=== PATIENT | male | born 1955 | race Caucasian/White ===

== ENCOUNTER 2020-09-08 06:09 | Outpatient (REF) | payer BC, SELFPAY ==
[2020-09-08 12:01] LABS: Alanine Aminotransferase 15 U/L (0-40); Alkaline Phosphatase 59 U/L (39-117); Anion Gap 12 (12-20); Aspartate Amino Transferase 12 U/L (5-37); Bilirubin Total 0.7 mg/dL (0.0-1.0); Blood Urea Nitrogen 13 mg/dL (9-16); Calcium 8.8 mg/dL (8.4-10.2); Carbon Dioxide 26 mmol/L (22-29); Chloride 103 mmol/L (96-108); Cholesterol 168 mg/dL; Estimated Glomerular Filt Rate > 60; Glucose Fasting 97 mg/dL (60-99); HDL Cholesterol 41 mg/dL; LDL Cholesterol Calculated 106 mg/dl; Potassium 4.1 mmol/l (3.3-5.1); Sodium 137 mmol/L (135-145); Total Protein 6.3 g/dL (6.5-8.0); Triglycerides 105 mg/dL
[2020-09-08 12:12] LABS: TSH reflex Free T4 3.28 mIU/mL (0.32-4.0)
== END 2020-09-08 06:10 | disposition home or self-care (01) ==
LOC: HO.HMGCLDS 06:09
PROVIDERS: PCP Nurse Practitioner Family; Visit Provider Nurse Practitioner Family
DX: I48.0 Paroxysmal atrial fibrillation (principal); I10 Essential (primary) hypertension
CPT/HCPCS: 80053; 80061; 84443

== ENCOUNTER → 2020-12-01 09:14 | Outpatient (BNVA) | payer BC, SELFPAY | PROVIDERS: Visit Provider Nurse Practitioner Family | DX: Z76.89 Persons encountering health services in other specified circumstances (principal) ==

== ENCOUNTER → 2021-01-28 09:43 | Outpatient (BNVA) | payer BC, SELFPAY | PROVIDERS: PCP Nurse Practitioner Family; Visit Provider Internal Medicine | DX: I48.0 Paroxysmal atrial fibrillation (principal); I10 Essential (primary) hypertension; G47.33 Obstructive sleep apnea (adult) (pediatric); Z99.89 Dependence on other enabling machines and devices; Z79.899 Other long term (current) drug therapy; Z87.891 Personal history of nicotine dependence | CPT/HCPCS: 93005 ==

== ENCOUNTER → 2021-04-30 11:04 | Outpatient (BNVA) | payer BC, SELFPAY | PROVIDERS: PCP Nurse Practitioner Family; Visit Provider Urology | DX: N40.0 Benign prostatic hyperplasia without lower urinary tract symptoms (principal); R39.15 Urgency of urination; R39.12 Poor urinary stream | CPT/HCPCS: 51798 ==

== ENCOUNTER → 2021-08-03 13:40 | Outpatient (BNVA) | payer BC, SELFPAY | PROVIDERS: PCP Nurse Practitioner Family; Visit Provider Urology | DX: N40.1 Benign prostatic hyperplasia with lower urinary tract symptoms (principal); R33.9 Retention of urine, unspecified; R39.12 Poor urinary stream | CPT/HCPCS: 52000 ==

== ENCOUNTER → 2021-08-05 09:37 | Outpatient (BNVA) | payer BC, SELFPAY | PROVIDERS: PCP Nurse Practitioner Family; Visit Provider Internal Medicine | DX: I48.0 Paroxysmal atrial fibrillation (principal); I10 Essential (primary) hypertension; G47.33 Obstructive sleep apnea (adult) (pediatric); Z99.89 Dependence on other enabling machines and devices | CPT/HCPCS: 93005 ==

== ENCOUNTER 2021-08-09 09:55 | Outpatient (REF) | payer BC, SELFPAY ==
[2021-08-09 12:37] LABS: Anion Gap 11 (12-20); Blood Urea Nitrogen 12 mg/dL (9-16); Calcium 8.5 mg/dL (8.4-10.2); Carbon Dioxide 25 mmol/L (22-29); Chloride 109 mmol/L (96-108); Estimated Glomerular Filt Rate > 60; Glucose Random 74 mg/dL (60-115); Potassium 3.8 mmol/L (3.3-5.1); Sodium 141 mmol/L (135-145)
== END 2021-08-09 09:56 | disposition home or self-care (01) ==
LOC: HO.HMGCLDS 09:55
PROVIDERS: PCP Nurse Practitioner Family; Visit Provider Internal Medicine
DX: I48.0 Paroxysmal atrial fibrillation (principal)
CPT/HCPCS: 36415; 80048

== ENCOUNTER → 2021-09-14 10:38 | Outpatient (BNVA) | payer BC, SELFPAY | PROVIDERS: PCP Nurse Practitioner Family; Visit Provider Urology ==

== ENCOUNTER → 2021-12-03 12:47 | Outpatient (BNVA) | payer BC, SELFPAY | PROVIDERS: PCP Nurse Practitioner Family; Visit Provider Urology ==

== ENCOUNTER → 2021-12-21 12:48 | Outpatient (BNVA) | payer BC, SELFPAY | PROVIDERS: PCP Nurse Practitioner Family; Referring Provider Nurse Practitioner Family; Visit Provider Nurse Practitioner Family ==

== ENCOUNTER 2022-03-24 08:49 | Outpatient (REF) | payer BC, SELFPAY ==
[2022-03-24 09:57] LABS: MANUAL DIFF FLAG NO
[2022-03-24 10:26] LABS: Basophils Percent Auto 0.6 % (0-2); Eosinophils Absolute Auto 0.2 X10*3/uL (0.0-0.4); Eosinophils Percent Auto 3.6 % (0-4); Hematocrit 42.8 % (42.0-52.0); Hemoglobin 14.9 g/dl (14.0-18.0); Imm Gran Abs Auto 0.02 X10*3/uL (0.00-0.03); Imm Gran Pct Auto 0.4 % (0.0-0.4); Lymphocytes Percent Auto 19.7 % (20-40); Mean Corpuscular HGB Conc 34.8 g/dl (31.0-36.0); Mean Corpuscular Hemoglobin 31.6 pg (27.0-33.0); Mean Corpuscular Volume 90.9 fL (80.0-98.0); Mean Platelet Volume 9.3 fL (9.4-12.4); Monocytes Absolute Auto 0.4 X10*3/uL (0.1-1.2); Monocytes Percent Auto 6.6 % (2-11); Neutrophils Absolute Auto 3.6 x10*3/uL (2.0-8.3); Neutrophils Percent Auto 69.1 % (45-73); Platelet Count 203 X10*3/uL (160-400); Red Blood Count 4.71 X10*6/uL (4.60-5.80); Red Cell Distribution Width 12.6 % (11.0-16.0); White Blood Count 5.3 X10*3/uL (4.8-10.8)
[2022-03-24 11:09] LABS: Alanine Aminotransferase 13 U/L (0-40); Alkaline Phosphatase 61 U/L (39-117); Anion Gap 13 (12-20); Aspartate Amino Transferase 11 U/L (5-37); Blood Urea Nitrogen 12 mg/dL (9-16); Calcium 9.2 mg/dL (8.4-10.2); Carbon Dioxide 22 mmol/L (22-29); Chloride 107 mmol/L (96-108); Estimated Glomerular Filt Rate > 60; Glucose Random 89 mg/dL (60-115); Iron 105 mcg/dL (45-160); Percent Iron Saturation 31 % (15-50); Potassium 4.4 mmol/L (3.3-5.1); Sodium 138 mmol/L (135-145); Total Iron Binding Capacity 334 mcg/dL (228-428); Total Protein 6.5 g/dL (6.5-8.0); Unsaturated Iron Binding 229 ug/dL
[2022-03-24 11:14] LABS: Thyroid Stimulating Hormone 3.22 uIU/mL (0.32-4.0); Vitamin D 25-OH Total 26.7 ng/mL (>30)
[2022-03-24 11:25] LABS: Vitamin B12 169 pg/mL (200-900)
== END 2022-03-24 08:50 | disposition home or self-care (01) ==
LOC: HO.LAB 08:49
PROVIDERS: Absent Provider Nurse Practitioner Family; PCP Nurse Practitioner Family; Referring Provider Nurse Practitioner Family; Visit Provider Internal Medicine
DX: I48.0 Paroxysmal atrial fibrillation (principal); I10 Essential (primary) hypertension; R40.0 Somnolence; R53.83 Other fatigue; G47.33 Obstructive sleep apnea (adult) (pediatric); Z79.899 Other long term (current) drug therapy; Z87.891 Personal history of nicotine dependence; Z99.89 Dependence on other enabling machines and devices
CPT/HCPCS: 36415; 80053; 82306; 82607; 83540; 84443; 85025; 93005

== ENCOUNTER → 2022-06-29 12:55 | Outpatient (BNVA) | payer BC, SELFPAY | PROVIDERS: PCP Nurse Practitioner Family; Visit Provider Urology | DX: N40.1 Benign prostatic hyperplasia with lower urinary tract symptoms (principal); R33.9 Retention of urine, unspecified | CPT/HCPCS: 51798 ==

== ENCOUNTER → 2022-09-29 08:58 | Outpatient (BNVA) | payer MEDICARE, BC, SELFPAY | PROVIDERS: PCP Nurse Practitioner Family; Referring Provider Nurse Practitioner Family; Visit Provider Internal Medicine | DX: I48.0 Paroxysmal atrial fibrillation (principal); I10 Essential (primary) hypertension; G47.33 Obstructive sleep apnea (adult) (pediatric); Z99.89 Dependence on other enabling machines and devices; E66.01 Morbid (severe) obesity due to excess calories; Z68.38 Body mass index [BMI] 38.0-38.9, adult | CPT/HCPCS: 93005; 99212 ==

== ENCOUNTER 2022-10-10 06:25 | Outpatient (REF) | payer MEDICARE, BC, SELFPAY ==
[2022-10-10 11:36] LABS: Appearance Urine Turbid; Color Urine Dark Yellow; Glucose Urine UA Negative (Negative); Leukocyte Esterase Urine Trace (Negative); Nitrite Urine Negative (Negative); Specific Gravity - Urine 1.025 (1.005-1.025); UMIC TRIGGER UACC YES; Urine Blood Negative (Negative); Urine Ketones Trace mg/dL (Negative); Urine Protein Negative (Neg-Trace)
[2022-10-10 11:38] LABS: MANUAL DIFF FLAG NO
[2022-10-10 11:43] LABS: Bacteria Urine None Seen (None Seen); Hyaline Casts Urine 0-2 /LPF (0-2); RBC Urine 0-2 /HPF (0-2); Squamous Epithelial Cell Urine 0-2 /HPF (0-2); WBC Urine 0-5 /HPF (0-5)
[2022-10-10 11:47] LABS: Basophils Absolute Auto 0.1 X10*3/uL (0.0-0.2); Eosinophils Absolute Auto 0.2 X10*3/uL (0.0-0.4); Eosinophils Percent Auto 3.1 % (0-4); Hematocrit 44.9 % (42.0-52.0); Hemoglobin 15.1 g/dl (14.0-18.0); Imm Gran Abs Auto 0.03 X10*3/uL (0.00-0.03); Imm Gran Pct Auto 0.6 % (0.0-0.4); Lymphocytes Absolute Auto 0.9 X10*3/uL (1.2-4.9); Lymphocytes Percent Auto 18.1 % (20-40); Mean Corpuscular HGB Conc 33.6 g/dl (31.0-36.0); Mean Corpuscular Hemoglobin 31.2 pg (27.0-33.0); Mean Corpuscular Volume 92.8 fL (80.0-98.0); Mean Platelet Volume 9.6 fL (9.4-12.4); Monocytes Absolute Auto 0.4 X10*3/uL (0.1-1.2); Monocytes Percent Auto 6.9 % (2-11); Neutrophils Absolute Auto 3.6 x10*3/uL (2.0-8.3); Neutrophils Percent Auto 70.3 % (45-73); Platelet Count 189 X10*3/uL (160-400); Red Blood Count 4.84 X10*6/uL (4.60-5.80); Red Cell Distribution Width 12.7 % (11.0-16.0); White Blood Count 5.1 X10*3/uL (4.8-10.8)
[2022-10-10 12:19] LABS: Alanine Aminotransferase 14 U/L (0-40); Albumin Level 4.1 g/dL (3.5-5.0); Alkaline Phosphatase 63 U/L (39-117); Anion Gap 10 (12-20); Aspartate Amino Transferase 11 U/L (5-37); Bilirubin Total 0.9 mg/dL (0.0-1.0); Blood Urea Nitrogen 15 mg/dL (9-16); Calcium 9.1 mg/dL (8.4-10.2); Carbon Dioxide 26 mmol/L (22-29); Chloride 106 mmol/L (96-108); Cholesterol 155 mg/dL; Estimated Glomerular Filt Rate > 60; Glucose Fasting 110 mg/dL (60-99); HDL Cholesterol 39 mg/dL; LDL Cholesterol Calculated 99 mg/dl; Potassium 4.2 mmol/L (3.3-5.1); Sodium 138 mmol/L (135-145); TSH reflex Free T4 3.83 uIU/mL (0.32-4.0); Total Protein 6.5 g/dL (6.5-8.0); Triglycerides 87 mg/dL
[2022-10-10 12:38] LABS: Folate 4.3 ng/mL (> or = 4.0); Vitamin B12 366 pg/mL (200-900)
== END 2022-10-10 06:26 | disposition home or self-care (01) ==
LOC: HO.HMGCLDS 06:25
PROVIDERS: PCP Nurse Practitioner Family; Visit Provider Nurse Practitioner Family
DX: Z00.00 Encounter for general adult medical examination without abnormal findings (principal); Z12.5 Encounter for screening for malignant neoplasm of prostate; E53.8 Deficiency of other specified B group vitamins
CPT/HCPCS: 36415; 80053; 80061; 81001; 82607; 82746; 84153; 84443; 85025

== ENCOUNTER 2022-11-01 12:18 | Outpatient (REF) | payer MEDICARE, BC, SELFPAY ==
[2022-11-07 14:14] LABS: Parietal Cell Antibody <=20.0 Unit (<=20.0)
[2022-11-07 17:49] LABS: Intrinsic Factor Antibodies Positive (Negative)
== END 2022-11-01 12:19 | disposition home or self-care (01) ==
LOC: HO.HMGCLDS 12:18
PROVIDERS: PCP Nurse Practitioner Family; Visit Provider Nurse Practitioner Family
DX: E53.8 Deficiency of other specified B group vitamins (principal)
CPT/HCPCS: 36415; 83516; 86340

== ENCOUNTER → 2022-12-27 09:55 | Outpatient (BNVA) | payer BC, SELFPAY | PROVIDERS: PCP Nurse Practitioner Family; Visit Provider Nurse Practitioner Family | DX: Z13.89 Encounter for screening for other disorder (principal) ==

== ENCOUNTER → 2022-12-29 08:45 | Outpatient (BNVA) | payer MEDICARE, BC, SELFPAY | PROVIDERS: PCP Nurse Practitioner Family; Referring Provider Nurse Practitioner Family; Visit Provider Internal Medicine | DX: R94.31 Abnormal electrocardiogram [ECG] [EKG] (principal); I45.10 Unspecified right bundle-branch block | CPT/HCPCS: 93005 ==

== ENCOUNTER → 2023-01-10 10:38 | Outpatient (BNVA) | payer MEDICARE, BC, SELFPAY | PROVIDERS: PCP Nurse Practitioner Family; Visit Provider Urology | DX: R39.12 Poor urinary stream (principal); R39.15 Urgency of urination | CPT/HCPCS: 51798; 99212 ==

== ENCOUNTER 2023-03-07 08:41 | Emergency (ER) | payer MEDICARE, BC, SELFPAY ==
--- NOTE | ~2023-03-07 | MR_ITS ---
EXAMINATION: MR LUMBAR SPINE WITHOUT CONTRAST CLINICAL INFORMATION: ?cauda equina syndrome, incontinence COMPARISON: None TECHNIQUE: MRI of the lumbar spine was obtained using routine sequences without contrast. FINDINGS: Normal lumbar lordosis is preserved. Trace retrolisthesis of L2 on L3 and L3 on L4. There is a chronic L1 superior endplate compression fracture with associated Schmorl's node and resultant mild height loss and anterior wedging but no associated marrow edema or bony retropulsion. Milder chronic height loss of the L2, L3, and L4 vertebral bodies. Disc desiccation with mild T12-L1 and T11-T12 disc height loss. Mixed type I/II Modic endplate changes posteriorly at L3-L4 and anteriorly at L2-L3 with otherwise mild multilevel anterior type II Modic endplate changes. There are degenerative changes with level by level detail as follows: L1-L2: Mild bilateral facet hypertrophy. No spinal canal or neural foraminal stenosis. L2-L3: Annular disc bulge with bilateral broad-based subarticular disc protrusions and left subarticular/foraminal annular fissure. Mild bilateral facet arthrosis with ligamentum flavum thickening and trace facet joint fluid. No spinal canal stenosis, noting subarticular zone narrowing and mass effect along the traversing right L3 nerve root. Mild bilateral neural foraminal encroachment. L3-L4: Annular disc bulge with left foraminal annular fissure and mild facet arthrosis with ligamentum flavum thickening. No spinal canal stenosis, noting encroachment upon the traversing left greater than right L4 nerve roots in the subarticular zones. Mild bilateral neural foraminal stenosis. L4-L5: Annular disc bulge with moderate facet arthrosis and ligamentum flavum thickening. Small extracanalicular synovial cyst associated with the right facet joint projecting to the right paraspinal soft tissues. No spinal canal stenosis. Minimal bilateral neural foraminal encroachment. L5-S1: Annular disc bulge and moderate right greater than left facet arthrosis. No spinal canal or neural foraminal stenosis. The conus medullaris terminates at the level of T12-L1. The distal spinal cord is normal in appearance. . No epidural fluid collection, hematoma, or mass. Bridging ventral osteophytosis along the left greater than right sacroiliac joints. There is moderate fatty atrophy of the paraspinal musculature. Right renal cyst. The abdominal aorta is of normal contour and caliber. MR/MR lumbar spine wo con IMPRESSION: 1. Chronic L1 superior endplate compression fracture with associated Schmorl's node and resultant mild height loss and anterior wedging. Milder chronic height loss of the L2, L3, and L4 vertebral bodies. 2. Multilevel lumbar spondylosis without evidence of high-grade spinal canal stenosis at any level in the lumbar spine. 3. At L2-L3, a broad-based right subarticular disc protrusion and left subarticular/foraminal annular fissure results in mass effect on the traversing right L3 nerve root. 4. Additional level by level details above.
[2023-03-07 08:47] VITALS: BP 167/93; PULSE 99; RESP 18; TEMP 36.8; O2SAT 97; BMI 39.8
[2023-03-07 09:14] VITALS: BP 143/89; PULSE 79; RESP 11; TEMP 36.4; O2SAT 97
--- NOTE | 2023-03-07 09:31 | ED.BACK ---
HPI - Back Pain/Injury General Chief Complaint: Back Pain/Injury <Brandon Elena MD - Last Filed: 03/07/23 09:35> Stated Complaint: Chronic Back Pain <Brandon Elena MD - Last Filed: 03/07/23 09:35> Time Seen by Provider: 03/07/23 08:54 <Brandon Elena MD - Last Filed: 03/07/23 09:35> Source: patient <Brandon Elena MD - Last Filed: 03/07/23 09:35> Mode of arrival: ambulatory <Brandon Elena MD - Last Filed: 03/07/23 09:35> Limitations: no limitations <Brandon Elena MD - Last Filed: 03/07/23 09:35> History of Present Illness HPI Narrative: This is a 67 years old male presented to the emergency department referred by the PCP because lower back pain and urine incontinence his PCP recommended an MRI to rule out gout equina syndrome therefore he was sent to the ED. Patient denies any fever chills vomiting <Brandon Elena MD - Last Filed: 03/07/23 09:35> MD elicited complaint: back pain <Brandon Elena MD - Last Filed: 03/07/23 09:35> Onset (ago): day(s) (7) <Brandon Elena MD - Last Filed: 03/07/23 09:35> Timing: constant <Brandon Elena MD - Last Filed: 03/07/23 09:35> Severity: moderate <Brandon Elena MD - Last Filed: 03/07/23 09:35> Quality: burning <Brandon Elena MD - Last Filed: 03/07/23 09:35> Location: lumbar spine <Brandon Elena MD - Last Filed: 03/07/23 09:35> Radiation: none <Brandon Elena MD - Last Filed: 03/07/23 09:35> Exacerbating factors: none <Brandon Elena MD - Last Filed: 03/07/23 09:35> Relieving factors: none <Brandon Elena MD - Last Filed: 03/07/23 09:35> Associated symptoms: urinary incontinence <Brandon Elena MD - Last Filed: 03/07/23 09:35> Related Data Home Medications: Home Medications Medication Instructions Recorded Confirmed cyanocobalamin (vitamin B-12) mcg IM 01/10/23 03/07/23 1,000 mcg/mL injection solution Previous Rx's Medication Instructions Recorded amlodipine 2.5 mg tablet 2.5 mg PO DAILY #90 tabs 04/29/22 paroxetine HCl 20 mg tablet 20 mg PO QAM #30 tabs 10/31/22 tamsulosin 0.4 mg capsule 0.4 mg PO DAILY 90 days #90 caps 10/31/22 cyanocobalamin (vitamin B-12) 1,000 mcg IM .COMPLEX #10 ea 11/01/22 1,000 mcg/mL injection kit apixaban 5 mg tablet 5 mg PO BID 90 days #180 tabs 11/28/22 dronedarone 400 mg tablet 400 mg PO BID 90 days #180 tabs 11/28/22 tolterodine 4 mg capsule,extended 4 mg PO DAILY 90 days #90 caps 12/12/22 release 24 hr <Brandon Elena MD - Last Filed: 03/07/23 09:35> Allergies/Adverse Reactions: Allergies Allergy/AdvReac Type Severity Reaction Status Date / Time No Known Allergies Allergy Verified 03/07/23 08:00 [No Known Allergies*] <Brandon Elena MD - Last Filed: 03/07/23 09:35> Review of Systems Constitutional: Constitutional: Reports no additional constitutional complaints <Brandon Elena MD - Last Filed: 03/07/23 09:35> Eyes: Eyes: Reports no additional eye complaints <Brandon Elena MD - Last Filed: 03/07/23 09:35> Cardiovascular: Cardiovascular: Reports no additional cardiovascular complaints <Brandon Elena MD - Last Filed: 03/07/23 09:35> Neurologic: Reports system reviewed and no additional complaints, except as documented <Brandon Elena MD - Last Filed: 03/07/23 09:35> PMFSH Past Medical History Medical History: Medical History Essential hypertension Incomplete emptying of bladder Morbid obesity EVON on CPAP Paroxysmal atrial fibrillation Weak urinary stream <Brandon Elena MD - Last Filed: 03/07/23 09:35> Surgical History: Surgical History History of tonsillectomy <Brandon Elena MD - Last Filed: 03/07/23 09:35> Family History Family History: Family History Father Heart attack Prostate cancer Mother Heart disease Son Substance use disorder Daughter Substance use disorder Sister Mental health disorder <Brandon Elena MD - Last Filed: 03/07/23 09:35> Social History Social History: Social History Housing: House Alcohol intake: former Year quit: 2007 Patient Tobacco Use Status: Former Tobacco user Quit Date: 1983 Smoked: 10 +/- e-Cigarette/Vaping Use: Never Used Second Hand Smoke Exposure: No Advance Directives: No Advance Directives Date on File: 01/22/16 service: Yes Current occupational status: retired Cognitive needs: No Hearing needs: No Vision needs: No <Brandon Elena MD - Last Filed: 03/07/23 09:35> Physical Exam Vital Signs: Vital Signs: Last Vital Signs Temp 98.1 F 03/07/23 16:47 Pulse 81 03/07/23 18:10 Resp 16 03/07/23 18:10 BP 152/98 H 03/07/23 18:10 Pulse Ox 98 03/07/23 18:10 O2 Del Method Room Air 03/07/23 18:10 BMI result Body Mass Index 39.8 <Brandon Elena MD - Last Filed: 03/07/23 09:35> Vital Signs: Last Vital Signs Temp 98.1 F 03/07/23 16:47 Pulse 81 03/07/23 18:10 Resp 16 03/07/23 18:10 BP 152/98 H 03/07/23 18:10 Pulse Ox 98 03/07/23 18:10 O2 Del Method Room Air 03/07/23 18:10 BMI result Body Mass Index 39.8 <Letty Aceves MD - Last Filed: 03/07/23 18:41> Const: General: cooperative <MD El Mayen Last Filed: 03/07/23 09:35> Nutritional Appearance: well nourished <MD El Mayen Last Filed: 03/07/23 09:35> Orientation/consciousness: patient oriented x3 <MD El Mayen Last Filed: 03/07/23 09:35> Limitations: no limitations <MD El Mayen Last Filed: 03/07/23 09:35> HEENT: Head: Yes normal to inspection <MD El Mayen Last Filed: 03/07/23 09:35> General nose exam: Normal external nose present <MD El Mayen Last Filed: 03/07/23 09:35> Face and sinus: Yes normal facial exam <MD El Mayen Last Filed: 03/07/23 09:35> Mouth: Normal oral and palatal mucosa present <MD El Mayen Last Filed: 03/07/23 09:35> Throat: Yes posterior oropharynx normal <MD El Mayen Last Filed: 03/07/23 09:35> Neck: Neck: Yes normal visual inspection and Yes full ROM <MD El Mayen Last Filed: 03/07/23 09:35> Chest: Chest palpation & inspection: normal inspection of the chest <MD El Mayen Last Filed: 03/07/23 09:35> Resp: Effort & Inspection: normal respiratory effort <MD El Mayen Last Filed: 03/07/23 09:35> Auscultation: clear to auscultation bilaterally <MD El Mayen Last Filed: 03/07/23 09:35> Cardio: Jugular venous distension: no JVD <MD lE Mayen Last Filed: 03/07/23 09:35> Rate: regular rate <MD El Mayen Last Filed: 03/07/23 09:35> Rhythm: regular rhythm <MD El Mayen Last Filed: 03/07/23 09:35> GI: Inspection: Yes normal to inspection <MD El Mayen Last Filed: 03/07/23 09:35> Back/Spine/Pelvis: Other: Tenderness in the lower spine, as reflexes in the lower extremity his Babinski is negative his strength in the lower extremities normal sensation is normal <Brandon Elena MD - Last Filed: 03/07/23 09:35> Neuro: General: patient oriented x3 <Brandon Elena MD - Last Filed: 03/07/23 09:35> Medications Administered Discontinued Medications Generic Name Dose Route Start Last Admin Trade Name Freq PRN Reason Stop Dose Admin Diazepam 5 mg 03/07/23 14:02 03/07/23 14:22 Diazepam 2 Mg Tablet PO 03/07/23 14:03 3 mg ONCE ONE Administration <Brandon Elena MD - Last Filed: 03/07/23 09:35> Medications Administered Discontinued Medications Generic Name Dose Route Start Last Admin Trade Name Freq PRN Reason Stop Dose Admin Diazepam 5 mg 03/07/23 14:02 03/07/23 14:22 Diazepam 2 Mg Tablet PO 03/07/23 14:03 3 mg ONCE ONE Administration <Letty Aceves MD - Last Filed: 03/07/23 18:41> Medical Decision Making Medical Decision Making MDM Narrative: Patient was sent by the PCP to rule out cauda equina syndrome will do an MRI <Brandon Elena MD - Last Filed: 03/07/23 09:35> Patient was sent by the PCP to rule out cauda equina syndrome will do an MRI -MRI is negative for cauda equina. Patient has not had any episodes of incontinence or lower extremity weakness in the emergency room. -MRI discussed with the patient, patient being discharged, can follow up with his primary care physician. <Letty Aceves MD - Last Filed: 03/07/23 18:41> Differential Diagnosis Differential Diagnoses: The differential diagnosis associated with the presentation includes (Cauda equina versus compression fractures versus lumbar spondylosis versus spinal stenosis) <Letty Aceves MD - Last Filed: 03/07/23 18:41> Radiology Impression Discussion of test interpretation with radiology: I have reviewed the radiologist's reading. <Letty Aceves MD - Last Filed: 03/07/23 18:41> Radiologist Impression: FINDINGS: Normal lumbar lordosis is preserved. Trace retrolisthesis of L2 on L3 and L3 on L4. There is a chronic L1 superior endplate compression fracture with associated Schmorl's node and resultant mild height loss and anterior wedging but no associated marrow edema or bony retropulsion. Milder chronic height loss of the L2, L3, and L4 vertebral bodies. Disc desiccation with mild T12-L1 and T11-T12 disc height loss. Mixed type I/II Modic endplate changes posteriorly at L3-L4 and anteriorly at L2-L3 with otherwise mild multilevel anterior type II Modic endplate changes. There are degenerative changes with level by level detail as follows: L1-L2: Mild bilateral facet hypertrophy. No spinal canal or neural foraminal stenosis. L2-L3: Annular disc bulge with bilateral broad-based subarticular disc protrusions and left subarticular/foraminal annular fissure. Mild bilateral facet arthrosis with ligamentum flavum thickening and trace facet joint fluid. No spinal canal stenosis, noting subarticular zone narrowing and mass effect along the traversing right L3 nerve root. Mild bilateral neural foraminal encroachment.? ? L3-L4: Annular disc bulge with left foraminal annular fissure and mild facet arthrosis with ligamentum flavum thickening. No spinal canal stenosis, noting encroachment upon the traversing left greater than right L4 nerve roots in the subarticular zones. Mild bilateral neural foraminal stenosis.? L4-L5: Annular disc bulge with moderate facet arthrosis and ligamentum flavum thickening. Small extracanalicular synovial cyst associated with the right facet joint projecting to the right paraspinal soft tissues. No spinal canal stenosis. Minimal bilateral neural foraminal encroachment. L5-S1: Annular disc bulge and moderate right greater than left facet arthrosis. No spinal canal or neural foraminal stenosis. The conus medullaris terminates at the level of T12-L1.? The distal spinal cord is normal in appearance.? . No epidural fluid collection, hematoma, or mass. Bridging ventral osteophytosis along the left greater than right sacroiliac joints. There is moderate fatty atrophy of the paraspinal musculature.? Right renal cyst. The abdominal aorta is of normal contour and caliber. MR/MR lumbar spine wo con IMPRESSION: 1.? Chronic L1 superior endplate compression fracture with associated Schmorl's node and resultant mild height loss and anterior wedging. Milder chronic height loss of the L2, L3, and L4 vertebral bodies. 2.? Multilevel lumbar spondylosis without evidence of high-grade spinal canal stenosis at any level in the lumbar spine. 3.? At L2-L3, a broad-based right subarticular disc protrusion and left subarticular/foraminal annular fissure results in mass effect on the traversing right L3 nerve root. 4.? Additional level by level details above. <Letty Aceves MD - Last Filed: 03/07/23 18:41> Discharge Plan Discharge Clinical Impression: Back pain <Brandon Elena MD - Last Filed: 03/07/23 09:35> Patient Disposition: Home, Self-Care <Brandon Elena MD - Last Filed: 03/07/23 09:35> Instructions: Back Pain (ED) <Brandon Elena MD - Last Filed: 03/07/23 09:35> Prescriptions: No Action amlodipine 2.5 mg tablet 2.5 mg PO DAILY Qty: 90 3RF tamsulosin 0.4 mg capsule 0.4 mg PO DAILY 90 Days Qty: 90 1RF paroxetine HCl 20 mg tablet 20 mg PO QAM Qty: 30 3RF cyanocobalamin (vitamin B-12) 1,000 mcg/mL kit 1,000 mcg IM .COMPLEX Qty: 10 0RF Rx Instructions: once a month; apixaban 5 mg tablet 5 mg PO BID 90 Days Qty: 180 3RF dronedarone 400 mg tablet 400 mg PO BID 90 Days Qty: 180 3RF tolterodine 4 mg capsule,extended release 24hr 4 mg PO DAILY 90 Days Qty: 90 1RF cyanocobalamin (vitamin B-12) 1,000 mcg/mL solution IM <Brandon Elena MD - Last Filed: 03/07/23 09:35> Referrals: Kristian García, MANAGER [employer] [Primary Care Provider] - 2 days <Brandon Elena MD - Last Filed: 03/07/23 09:35>
[2023-03-07 11:32] VITALS: BP 141/94; PULSE 76; RESP 20; O2SAT 97
[2023-03-07 13:52] VITALS: BP 161/111; PULSE 81; RESP 16; O2SAT 98
[2023-03-07] MEDS: diazePAM 2 MG TABLET 5 MG PO (14:22)
[2023-03-07 16:47] VITALS: BP 147/94; PULSE 88; RESP 18; TEMP 36.7; O2SAT 95
[2023-03-07 18:10] VITALS: BP 152/98; PULSE 81; RESP 16; O2SAT 98
== END 2023-03-07 18:50 | disposition home or self-care (01) ==
PROVIDERS: Emergency Provider Emergency Medicine; PCP Nurse Practitioner Family
DX: M54.50 Low back pain, unspecified (principal); Z79.899 Other long term (current) drug therapy
CPT/HCPCS: 72148; 99283; 99285

== ENCOUNTER → 2023-03-30 08:53 | Outpatient (BNVA) | payer MEDICARE, BC, SELFPAY | PROVIDERS: PCP Nurse Practitioner Family; Referring Provider Nurse Practitioner Family; Visit Provider Internal Medicine | DX: I48.0 Paroxysmal atrial fibrillation (principal); I49.3 Ventricular premature depolarization; I45.10 Unspecified right bundle-branch block | CPT/HCPCS: 93005 ==

== ENCOUNTER 2023-04-01 14:18 | Emergency (ER) | payer MEDICARE, BC, SELFPAY ==
--- NOTE | ~2023-04-01 | XR_ITS ---
EXAMINATION: XR HAND, LEFT CLINICAL INFORMATION: Fissural left index finger COMPARISON: None available. TECHNIQUE: PA, lateral, and oblique views of the left hand. FINDINGS: A fishing lure overlies the distal portion of the index finger. On of the tines is embedded in the lateral soft tissues just adjacent to the DIP joint of the index finger. The bones and soft tissues are otherwise normal. No fracture. Alignment is anatomic. Joint spaces are maintained. No erosions or soft tissue calcifications. XR/XR hand LT 2V IMPRESSION: 1. Fishing lure with a single shelly of on the hooks embedded in the soft tissues as described above. 2. No osseous abnormalities.
[2023-04-01 14:22] VITALS: BP 139/87; PULSE 76; RESP 18; TEMP 36.1; O2SAT 97; BMI 39.0
--- NOTE | 2023-04-01 14:22 | ED.GENADULT ---
HPI - General Adult General Chief complaint: Skin/Abscess/Foreign Body Stated complaint: fishhook in l index finger Time Seen by Provider: 04/01/23 14:27 Source: patient Mode of arrival: ambulatory Limitations: no limitations History of Present Illness HPI narrative: 67 yo male with history of afib on eliqus here with fishhook to left index finger. Tetanus status unknown Related Data Home Medications Medication Instructions Recorded Confirmed cyanocobalamin (vitamin B-12) mcg IM 01/10/23 03/07/23 1,000 mcg/mL injection solution Previous Rx's Medication Instructions Recorded amlodipine 2.5 mg tablet 2.5 mg PO DAILY #90 tabs 04/29/22 tamsulosin 0.4 mg capsule 0.4 mg PO DAILY 90 days #90 caps 10/31/22 cyanocobalamin (vitamin B-12) 1,000 mcg IM .COMPLEX #10 ea 11/01/22 1,000 mcg/mL injection kit apixaban 5 mg tablet 5 mg PO BID 90 days #180 tabs 03/13/23 dronedarone 400 mg tablet 400 mg PO BID 90 days #180 tabs 03/13/23 paroxetine HCl 20 mg tablet 20 mg PO QAM #30 tabs 03/14/23 metoprolol succinate 50 mg 50 mg PO DAILY #90 tabs 03/30/23 tablet,extended release 24 hr (Toprol XL) tolterodine 4 mg capsule,extended 4 mg PO DAILY 90 days #90 caps 03/31/23 release 24 hr Allergies Allergy/AdvReac Type Severity Reaction Status Date / Time No Known Allergies Allergy Verified 04/01/23 14:25 [No Known Allergies*] Review of Systems Review of Systems: Yes all other systems are reviewed and are negative Constitutional: Constitutional: Reports no additional constitutional complaints, Denies body ache(s), Denies chills, Denies fever(s), Denies headache(s) and Denies weakness Eyes: Eyes: Reports no additional eye complaints and Denies change in vision ENT: Reports system reviewed and no additional complaints, except as documented, Denies dizziness, Denies headache(s), Denies nasal congestion, Denies nasal discharge and Denies neck pain Cardiovascular: Cardiovascular: Reports no additional cardiovascular complaints, Denies chest pain, Denies leg edema and Denies dyspnea Respiratory: Respiratory: Reports no additional respiratory complaints, Denies cough and Denies dyspnea Gastrointestinal: Gastrointestinal: Reports no additional gastrointestinal complaints, Denies abdominal pain, Denies diarrhea, Denies nausea and Denies vomiting Genitourinary: Genitourinary: Denies urinary incontinence Musculoskeletal: Musculoskeletal: Reports no additional musculoskeletal complaints, Denies back pain, Reports arthralgias, Denies joint swelling, Denies neck pain, Denies numbness and Denies tingling Integumentary/Breasts: Skin/Breast: Reports system reviewed and no additional complaints, except as docu and Denies rash Neurologic: Reports system reviewed and no additional complaints, except as documented, Denies dizziness, Denies headache(s), Denies numbness, Denies tingling and Denies weakness PMFSH Past Medical History Attestation statement: The following information was validated with the patient. Source: old records reviewed and nursing notes reviewed Medical History Essential hypertension Incomplete emptying of bladder Morbid obesity EVON on CPAP Paroxysmal atrial fibrillation Weak urinary stream Surgical History History of tonsillectomy Family History Family History Father Heart attack Prostate cancer Mother Heart disease Son Substance use disorder Daughter Substance use disorder Sister Mental health disorder Social History Social History Housing: House Alcohol intake: never Patient Tobacco Use Status: Former Tobacco user Quit Date: 1983 Years Smoked: 10 +/- Smoked in Last 30 Days: No e-Cigarette/Vaping Use: Never Used Second Hand Smoke Exposure: No Use of substances other than those prescribed or required for medical reasons: No Advance Directives: Yes Advance Directives Information Provided: No Advance Directives on File: No Advance Directives Date on File: 01/22/16 service: Yes Current occupational status: retired Cognitive needs: No Hearing needs: No Vision needs: No Physical Exam ED Vital Signs: Vital Signs - 24 hr 04/01/23 14:22 Temperature 97 F Pulse Rate 76 Respiratory Rate 18 Blood Pressure 139/87 Pulse Oximetry 97 Oxygen Delivery Method Room Air BMI result Body Mass Index 39.0 Const General: cooperative, healthy appearing and no acute distress Orientation/consciousness: patient oriented x3 Limitations: no limitations HENMT Head: Yes normal to inspection Ears: hearing grossly normal bilaterally Eyes General: appearance normal, both eyes and all related structures Pupils: Equal, round and reactive pupils present Neck Neck: Yes normal visual inspection Chest Chest palpation & inspection: normal inspection of the chest Resp Effort & Inspection: normal respiratory effort Skin General skin exam: no rashes or lesions noted Neuro General: patient oriented x3 and moves all extremities Cranial nerves: Yes Equal, round and reactive pupils present Cognition (Neuro): normal cognition Extrem Other: To the left index finger there is a 3 prong fishhook present. One of the prongs is lodged within the superficial subcutaneous tissue of the distal aspect of the left index finger. There is some mild bleeding noted at the site. CMS intact distally. Course Course Course Narrative: 67-year-old male presents for evaluation of a fishhook in the left 2nd finger. Unknown last tetanus which was ordered. Medications Administered Discontinued Medications Generic Name Dose Route Start Last Admin Trade Name Freq PRN Reason Stop Dose Admin Diphtheria/Tetanus/Acell Pertussis 0.5 ml 04/01/23 14:23 04/01/23 15:20 Diphth,Pertus(Acell),Tet Adult 0.5 Ml Syringe IM 04/01/23 14:24 0.5 ml .ONCE ONE Administration Lidocaine HCl 2 ml 04/01/23 14:32 04/01/23 15:21 Lidocaine Hcl 1 % Mpf 2 Ml Vial INFILTRATI 04/01/23 14:33 2 ml ONCE ONE Administration Lidocaine HCl 2 ml 04/01/23 14:32 04/01/23 15:22 Lidocaine Hcl 1 % Mpf 2 Ml Vial INFILTRATI 04/01/23 14:33 2 ml ONCE ONE Administration Procedures Foreign Body Removal Site: left and hand (Index finger) Description of foreign body: fish hook Technique: removal with forceps and incision made to facilitate removal Confirmed by:: direct visualization Complications: none Post-procedure exam: awake, alert Neurovascular: normal distal pulse Nerve Block Nerve Block 1: Local Anesthetic: lidocaine 1% Amount of anesthesia used (mL): 3 Side: left Nerve Blocks: digital Procedure Successful: Yes Patient Tolerated Procedure: well Complications: none Medical Decision Making Medical Decision Making MDM Narrative: 67-year-old male here with fishhook stuck in his left index finger. Will need x-ray Procedure for fishhook removal including digital block and tetanus updated Differential Diagnosis Differential Diagnoses: The differential diagnosis associated with the presentation includes Low concern for vascular injury, fracture Independent Interpretation I performed an independent interpretation of an: Plain X-Ray Interpretation: I independently reviewed the x-ray and agree with radiologist's report Radiology Impression Discussion of test interpretation with radiology: I have reviewed the radiologist's reading. Radiologist Impression: [address] [address] XRay Report Signed Patient: Tyree Ferrell MR#: [id number] : 1955 Acct:[id number] Age/Sex: 67 / M ADM Date: 04/01/23 Loc: HO.ED Attending Dr: Ordering Physician: Valerie Levy NP Date of Service: 04/01/23 Procedure(s): XR hand LT 2V Accession Number(s): [id number] cc: Valerie Levy NP~ EXAMINATION: XR HAND, LEFT CLINICAL INFORMATION: Fissural left index finger? COMPARISON: None available.? TECHNIQUE: PA, lateral, and oblique views of the left hand. FINDINGS: A fishing lure overlies the distal portion of the index finger. On of the tines is embedded in the lateral soft tissues just adjacent to the DIP joint of the index finger. The bones and soft tissues are otherwise normal. No fracture. Alignment is anatomic. Joint spaces are maintained. No erosions or soft tissue calcifications.? XR/XR hand LT 2V IMPRESSION: 1.? Fishing lure with a single shelly of on the hooks embedded in the soft tissues as described above. 2.? No osseous abnormalities. Discharge Plan Discharge Clinical Impression: Foreign body (FB) in soft tissue Patient Disposition: Home, Self-Care Instructions: Soft Tissue Foreign Body (ED) Additional Instructions: Return for signs of infection such as fever, drainage, odor, redness Prescriptions: No Action amlodipine 2.5 mg tablet 2.5 mg PO DAILY Qty: 90 3RF tamsulosin 0.4 mg capsule 0.4 mg PO DAILY 90 Days Qty: 90 1RF cyanocobalamin (vitamin B-12) 1,000 mcg/mL kit 1,000 mcg IM .COMPLEX Qty: 10 0RF Rx Instructions: once a month; dronedarone 400 mg tablet 400 mg PO BID 90 Days Qty: 180 3RF apixaban 5 mg tablet 5 mg PO BID 90 Days Qty: 180 3RF paroxetine HCl 20 mg tablet 20 mg PO QAM Qty: 30 3RF metoprolol succinate [Toprol XL] 50 mg tablet extended release 24 hr 50 mg PO DAILY Qty: 90 3RF tolterodine 4 mg capsule,extended release 24hr 4 mg PO DAILY 90 Days Qty: 90 1RF cyanocobalamin (vitamin B-12) 1,000 mcg/mL solution IM Referrals: Kristian García, [facility] [Primary Care Provider] - 1 week Interventions: ED Discharge Assessment Last Done: 04/01/23 15:27 Discharge Date/Time: 04/01/23 15:28
--- NOTE | 2023-04-01 15:13 | PC.NURSE ---
Patient presents today with a fish hook noted in his left pointer finger. Patient had gone fishing today and upon getting home he was putting away the fishing rods he hooked his finger with the hook. Patient is calm and cooperative, no other complaints at this time.
[2023-04-01] MEDS: Diphth,Pertus(ACell),Tet Adult 0.5 ML SYRINGE IM (15:20)
[2023-04-01] MEDS: Lidocaine HCl 1 % MPF 2 ML VIAL INFILTRATI ×2 (15:21→15:22)
--- NOTE | 2023-04-01 15:33 | MHC.EDTECH ---
Applied non stick sterile gauze dressing wrapped with small dutch bandage to right index finger. SG
== END 2023-04-01 15:28 | disposition home or self-care (01) ==
PROVIDERS: Emergency Provider Emergency Medicine; PCP Nurse Practitioner Family
DX: S61.241A Puncture wound with foreign body of left index finger without damage to nail, initial encounter (principal); W45.8XXA Other foreign body or object entering through skin, initial encounter; I10 Essential (primary) hypertension; I48.0 Paroxysmal atrial fibrillation; Y93.19 Activity, other involving water and watercraft; Y92.89 Other specified places as the place of occurrence of the external cause; Y99.8 Other external cause status; Z79.01 Long term (current) use of anticoagulants; Z79.899 Other long term (current) drug therapy
CPT/HCPCS: 10120; 73120; 90471; 90715; 99284

== ENCOUNTER → 2023-04-05 10:12 | Outpatient (REF) | payer MEDICARE, BC, SELFPAY ==
--- NOTE | 2023-04-05 10:15 | HM_ITS ---
Conclusion: 1. Patient was monitored for total period of 3 days 2. Baseline was atrial fibrillation with average heart rate of 74 beats per minute 3. No significant pauses greater than 3 seconds noted 4. Frequent PVCs with total burden of 5% with multiple 3 beat salvos of nonsustained VT at the fastest heart rate of 170 beats per minute 5. Patient reported 8 events, with correlating symptoms of shortness of breath that were associated with atrial fibrillation with PVCs MTDD
== END ==
LOC: HO.CARD 10:12
PROVIDERS: PCP Nurse Practitioner Family; Visit Provider Internal Medicine
DX: I48.0 Paroxysmal atrial fibrillation (principal)
CPT/HCPCS: 93242

== ENCOUNTER 2023-06-08 09:47 | Outpatient (AMB) | payer MEDICARE, BC, SELFPAY ==
[2023-06-08 09:50] VITALS: BP 140/82; PULSE 67; BMI 38.3
--- NOTE | 2023-06-08 09:50 | A.OFFVIS_ITS ---
Intake Vital Signs 06/08/23 09:50 Height 6 ft 1 in Weight 290 lb 2.053 oz BMI 38.3 BP 140/82 H Blood Pressure Location Lt brachial Position Sitting Pulse 67 Intake Visit Reasons: follow up Intake Note: follow up Billiard Player Required: No Accompanied by: Self / Same As Patient Allergies No Known Allergies [No Known Allergies*] Allergy (Verified 06/08/23 09:52) Medication List - Last Reconciled 06/08/23 by Lowell Best MD amlodipine 2.5 mg PO DAILY apixaban 5 mg PO BID 90 days cyanocobalamin (vitamin B-12) once a month; cyanocobalamin (vitamin B-12) mcg IM metoprolol succinate ER (Toprol XL) 50 mg PO DAILY paroxetine HCl 20 mg PO QAM tamsulosin 0.4 mg PO DAILY 90 days tolterodine ER 4 mg PO DAILY 90 days HPI HPI Comments History of Present Illness Details Tyree returns for follow-up regarding paroxysmal atrial fibrillation. To recall, in 2016, he was admitted with atrial fibrillation and rapid rate and underwent ANUP/cardioversion. He was doing well on Multaq till recently when he went back into atrial fibrillation. Nonspecific symptoms like tiredness and some fatigue. Some shortness of breath with active. Otherwise, doing well. [facility] Medical History Essential hypertension Incomplete emptying of bladder Morbid obesity EVON on CPAP Paroxysmal atrial fibrillation Weak urinary stream Surgical History History of tonsillectomy Family History Father Heart attack Prostate cancer Mother Heart disease Son Substance use disorder Daughter Substance use disorder Sister Mental health disorder Social History Housing: House Alcohol intake: never Patient Tobacco Use Status: Former Tobacco user Quit Date: 1983 Years Smoked: 10 +/- e-Cigarette/Vaping Use: Never Used Second Hand Smoke Exposure: No Advance Directives Date on File: 01/22/16 service: Yes Current occupational status: retired Cognitive needs: No Hearing needs: No Vision needs: No Review of Systems Const Denies weakness ENT Denies dizziness Card Denies chest pain, Denies chest pain with activity, Denies syncope, Denies rapid heart rate, Denies pedal edema, Denies edema, Denies leg edema, Denies lighth eadedness, Denies palpitations, Denies dyspnea, Denies dyspnea on exertion and Denies orthopnea Resp Denies cough, Denies dyspnea and Denies dyspnea on exertion GI Denies hematochezia and Denies change in stool character Musc Denies abnormal gait, Denies muscle cramps, Denies muscle weakness, Denies numbness, Denies radiating pain into limb and Denies tingling Neuro Denies abnormal gait, Denies dizziness, Denies syncope, Denies numbness, Denies tingling and Denies weakness Endo Denies palpitations Physical Exam Vital Signs: Last Vital Signs Pulse 67 06/08/23 09:50 BP 140/82 H 06/08/23 09:50 BMI result Body Mass Index 38.3 Const General: comfortable and no acute distress Orientation/consciousness: patient oriented x3 HEENT Other: Unremarkable Head: Yes normal to inspection Neck Neck: Yes normal visual inspection Chest Chest palpation & inspection: normal inspection of the chest Resp Auscultation: clear to auscultation bilaterally Cardio Palpation: normal PMI Heart sounds: S1 normal heart sound present, S2 normal heart sound present, no gallops, no murmurs and no rubs GI Palpation (GI): Soft to palpation Back/Spine/Pelvis Other: unremarkable Skin General skin exam: no rashes or lesions noted Neuro General: patient oriented x3 Extrem General: Yes normal to inspection Psych Mental Status: mental status grossly normal Office Procedures EKG Details: EKG with atrial flutter at a rate of 94/Min. PVC vs aberrant conduction. [id number], Complete Assessment & Plan Assessment & Plan (1) Paroxysmal atrial fibrillation: Code(s): I48.0 - Paroxysmal atrial fibrillation Plan: Did well with Multaq for many years but now with recurrence of arrhythmia. Today's EKG shows atrial flutter with controlled rate. Some symptoms of tiredness, fatigue, shortness of breath. We discussed about further plan including rate control versus rhythm control. We can give another try with cardioversion. Following this, probably use amiodarone for short time and refer him for ablation. His weight/EVON will be issues anyway. We discussed about these. Last stress test -2015 -showed likely normal perfusion with diaphragmatic attenuation of the inferior wall on gated LVEF of 72%. Last echocardiogram - 2019 - showed normal LVEF, 60-65% and mild LVH/mild diastolic dysfunction but otherwise unremarkable. (2) Essential hypertension: Code(s): I10 - Essential (primary) hypertension Plan: Stable. (3) EVON on CPAP: Code(s): G47.33 - Obstructive sleep apnea (adult) (pediatric); Z99.89 - Dependence on other enabling machines and devices Plan: Continue CPAP. (4) Morbid obesity: Code(s): E66.01 - Morbid (severe) obesity due to excess calories Plan: We discussed about some meaningful weight loss as it will help the heart rhythm issues a lot. He understands. However not sure how much she can actually do. Plan Cardioversion to be scheduled. Orders: Orders Basic Metabolic Panel Today I48.0 - Paroxysmal atrial fibrillation Coding Level of Care Code Est Pt Level 4 (95311) Diagnoses Paroxysmal atrial fibrillation I48.0 Essential hypertension I10 EVON on CPAP G47.33; Z99.89 Morbid obesity E66.01 CPT Codes EKG - CPT: 04552-Vejxinzfaitmacnue, Complete ([id number])
== END 2023-06-08 10:16 | disposition home or self-care (01) ==
PROVIDERS: Visit Provider Internal Medicine
DX: I48.0 Paroxysmal atrial fibrillation (principal); I10 Essential (primary) hypertension; G47.33 Obstructive sleep apnea (adult) (pediatric); Z99.89 Dependence on other enabling machines and devices; E66.01 Morbid (severe) obesity due to excess calories
CPT/HCPCS: 93010; 99214

== ENCOUNTER → 2023-06-08 09:47 | Outpatient (BNVA) | payer MEDICARE, BC, SELFPAY | PROVIDERS: Visit Provider Internal Medicine | DX: I48.0 Paroxysmal atrial fibrillation (principal); I10 Essential (primary) hypertension; G47.33 Obstructive sleep apnea (adult) (pediatric); E66.01 Morbid (severe) obesity due to excess calories; Z99.89 Dependence on other enabling machines and devices; Z68.38 Body mass index [BMI] 38.0-38.9, adult | CPT/HCPCS: 93005; 99212 ==

== ENCOUNTER 2023-06-13 08:36 | Outpatient (REF) | payer MEDICARE, BC, SELFPAY ==
[2023-06-13 12:19] LABS: Anion Gap 10 (12-20); Blood Urea Nitrogen 12 mg/dL (9-16); Calcium 9.1 mg/dL (8.4-10.2); Carbon Dioxide 26 mmol/L (22-29); Chloride 107 mmol/L (96-108); Estimated Glomerular Filt Rate > 60; Glucose Random 131 mg/dL (60-115); Sodium 139 mmol/L (135-145)
== END 2023-06-13 08:37 | disposition home or self-care (01) ==
LOC: HO.HMGCLDS 08:36
PROVIDERS: PCP Nurse Practitioner Family; Visit Provider Internal Medicine
DX: I48.0 Paroxysmal atrial fibrillation (principal)
CPT/HCPCS: 36415; 80048

== ENCOUNTER 2023-06-19 14:08 | Outpatient (AMB) | payer MEDICARE, BC, SELFPAY ==
[2023-06-19 14:24] VITALS: BP 120/68; PULSE 93; O2SAT 98; BMI 38.4
--- NOTE | 2023-06-19 14:24 | A.OFFPC_ITS ---
Vital Signs 06/19/23 14:24 Height 6 ft 1 in Weight 291 lb BMI 38.4 BP 120/68 Blood Pressure Location Rt brachial Position Sitting Pulse 93 Pulse Source Pulse Oximeter Pulse Oximetry (%) 98 Oxygen Delivery Method Room Air Intake Visit Reasons: 6 month follow up Allergies No Known Allergies [No Known Allergies*] Allergy (Verified 06/19/23 14:27) Tobacco use date assessed: 06/19/23 Fall risk assessment: No Falls in past year Last assessed Fall Risk: 06/19/23 Dental Screening Dental Screen Date: 06/19/23 Did you have a dental visit in the last 12 months?: Yes Did you have a dental problem in the last 6 months where you did not have access to dental care?: No Was dental information given to patient?: Patient has dentist HPI 6 month follow up HPI Details Pt's last random glucose was elevated at 131. Will order labs including A1c. Denies polyuria, polydipsia, and neuropathy. Hx of low B12, will repeat labs. [facility] Medical History Essential hypertension Incomplete emptying of bladder Morbid obesity EVON on CPAP Paroxysmal atrial fibrillation Weak urinary stream Surgical History History of tonsillectomy Family History Father Heart attack Prostate cancer Mother Heart disease Son Substance use disorder Daughter Substance use disorder Sister Mental health disorder Social History Housing: House Alcohol intake: never Patient Tobacco Use Status: Former Tobacco user Quit Date: 1983 Smoked: 10 +/- e-Cigarette/Vaping Use: Never Used Second Hand Smoke Exposure: No Advance Directives Date on File: 01/22/16 service: Yes Current occupational status: retired Cognitive needs: No Hearing needs: No Vision needs: No Questionnaire Thrive Questionnaire Date Thrive assessed: 10/04/22 YESSENIA-7 AMB Questionnaire YESSENIA-7 Date YESSENIA - 7 assessed: 10/04/22 Source: Developed by Drs. Huang Wing, Milly Bernard, Sridhar Hoffman and colleagues, with an educational bryanna from [employer]. Review of Systems Const Reports as per HPI Physical exam (Primary Care) Vital Signs: Last Vital Signs Pulse 93 06/19/23 14:24 BP 120/68 06/19/23 14:24 Pulse Ox 98 06/19/23 14:24 Oxygen Delivery Method Room Air 06/19/23 14:24 BMI result Body Mass Index 38.4 Tobacco/Smoking Status: Tobacco use Status Tobacco use date assessed 06/19/23 06/19/23 14:29 Patient Tobacco Use Status Former Tobacco user 06/19/23 14:24 e-Cigarette/Vaping Use Never Used 06/19/23 14:24 Thrive Assessment: Date of Thrive Assessment Date Thrive assessed 10/04/22 06/19/23 14:24 Const General: cooperative Nutritional Appearance: obese Orientation/consciousness: patient oriented x3 Resp Effort & Inspection: normal respiratory effort Auscultation: clear to auscultation bilaterally Cardio Rate: regular rate Rhythm: abnormal rhythm irregularly irregular Neuro General: patient oriented x3 Extrem Right lower extremity: no edema Left lower extremity: no edema Psych Appearance: grossly normal Mental Status: mental status grossly normal Speech and movement: Normal speech and movement present Affect: normal affect Attitude: cooperative Thought process: Normal thought process present Thought content: Normal thought content present Insight: Good insight present (Psych) Judgement: Good judgement present (Psych) Assessment and Plan Assessment & Plan (1) Elevated blood sugar: Code(s): R73.9 - Hyperglycemia, unspecified Plan: Labs ordered (2) Low vitamin B12 level: Code(s): E53.8 - Deficiency of other specified B group vitamins Plan: Labs ordered Plan The patient agreed to the use of a medical office assistant instructor for this encounter. Scribed for PATTI Lema by Tonya Grayson medical office assistant instructor, on 06/19/2023 at 14:35 EST. Orders: Orders Hemoglobin A1c Today R73.9 - Hyperglycemia, unspecified Comprehensive [place]. Panel Fast Today R73.9 - Hyperglycemia, unspecified TSH reflex Free T4 Today E53.8 - Deficiency of other specified B group vitamins Complete Blood Count Auto Diff Today E53.8 - Deficiency of other specified B group vitamins Vitamin B12 and Folate Today E53.8 - Deficiency of other specified B group vitamins Medications: New betamethasone dipropionate 0.05% 1 appl topical DAILY PRN 45 grams 1RF skin irritation Coding Level of Care Code Est Pt Level 3 (88574) Diagnoses Elevated blood sugar R73.9 Low vitamin B12 level E53.8
== END 2023-06-19 14:57 | disposition home or self-care (01) ==
PROVIDERS: PCP Nurse Practitioner Family; Visit Provider Nurse Practitioner Family
DX: R73.9 Hyperglycemia, unspecified (principal); E53.8 Deficiency of other specified B group vitamins
CPT/HCPCS: 99213

== ENCOUNTER 2023-06-22 10:46 | Day surgery (SDC) | payer MEDICARE, SELFPAY ==
--- NOTE | 2023-06-22 09:47 | P.CONAN_ITS ---
[facility] Active Problems Active Problems: All Active Problems (Updated 06/19/23 @ 14:41 by Kristian García, [facility]) Elevated blood sugar (Acute) Low back pain radiating to both legs (Acute) Urinary incontinence (Acute) Cerumen impaction (Acute) Screening PSA (prostate specific antigen) (Acute) Physical exam (Acute) Morbid obesity (Acute) Low vitamin B12 level (Acute) Fatigue (Acute) Daytime sleepiness (Acute) Incomplete emptying of bladder due to benign prostatic hyperplasia (Acute) Urinary urgency (Acute) Weak urinary stream (Acute) Essential hypertension (Acute) EVON on CPAP (Acute) Paroxysmal atrial fibrillation (Acute) Severe obstructive sleep apnea (Acute) Physical exam, routine (Acute) BPH (benign prostatic hyperplasia) (Acute) Past Medical History Medical History Essential hypertension Incomplete emptying of bladder Morbid obesity EVON on CPAP Paroxysmal atrial fibrillation Weak urinary stream Family History Family History Father Heart attack Prostate cancer Mother Heart disease Son Substance use disorder Daughter Substance use disorder Sister Mental health disorder Surgical History Surgical History History of tonsillectomy History of Problems with Anesthesia: No Social History Social History Housing: House Alcohol intake: never Patient Tobacco Use Status: Former Tobacco user Quit Date: 1983 Years Smoked: 10 +/- e-Cigarette/Vaping Use: Never Used Second Hand Smoke Exposure: No Advance Directives: No Advance Directives Information Provided: Yes Advance Directives Date on File: 01/22/16 service: Yes Current occupational status: retired Cognitive needs: No Hearing needs: No Vision needs: No Meds Allergies Allergy/AdvReac Type Severity Reaction Status Date / Time No Known Allergies Allergy Verified 06/19/23 14:27 [No Known Allergies*] Exam Exam Date and Time: June 22, 2023 0947 Airway Mallampati Class: IV TM Dist: >3cm Neck ROM: Full Loose/Missing/Broken Teeth: Yes (globally poor dentition) Heart: IRREG IRREGULAR RHYTHM Lungs: CTA Assessment and Plan Assessment Anesthesia Assessment: Anesthesia Plan Discussed and Chart Reviewed Final Anesthetic Review History of Problems with Anesthesia: No NPO: Yes ASA Class: III Final Preanesthetic Review: Meds/Allgs Chart Reviewed, Consent Obtained/Reviewed and Anes Risks/Benef Reviewed Patient Risk: Intermediate Procedure Risk: Intermediate Anesthetic Plan Anesthetic Plan: GA Disposition: Standard PACU
[2023-06-22 11:32] VITALS: BP 145/88; PULSE 70; RESP 18; TEMP 36.5; O2SAT 97
--- NOTE | 2023-06-22 11:47 | MHC.SHP ---
Pre-Procedural Eval Section A Date of Service: 06/22/23 The patient is an INPATIENT: No The History & Physical has been completed within 30 days and I have reviewed it.: Yes Section B Chief Complaint: Paroxysmal atrial fibrillation Allergies: Allergies Allergy/AdvReac Type Severity Reaction Status Date / Time No Known Allergies Allergy Verified 06/19/23 14:27 [No Known Allergies*] Plan I have reviewed the history and physical and performed a pertinent physical examination on my patient. No changes have occurred unless specified. Time Spent With Patient Time: Total time managing care of this patient today ____ minutes.
--- NOTE | 2023-06-22 11:51 | HO.CARDIVERS ---
Cardioversion Procedure Note Cardioversion Date of Procedure: 06/22/2023 Ordering Provider: Performing Provider: Indication for Procedure: Symptomatic atrial fibrillation Pre-Op Diagnosis: Atrial fibrillation Post-Op Diagnosis: Sinus rhythm ANUP findings (if ANUP Performed): Not performed History: see clinic note in detail Consent: Informed consent obtained. Procedure: After informed consent was obtained, patient was taken to the PACU. The patient was then positioned appropriately. The cardioversion pads were placed in anteroposterior position. Once under anesthesia, 120 joules of synchronized shock was administered. The rhythm converted from atrial fibrillation to sinus rhythm. Patient remained in sinus rhythm after the end of procedure. Complications: None Impression: Successful cardioversion. Recommendations: Post procedure EKG. Based on QTc, can plan Amiodarone. FU in clinic.
[2023-06-22 12:19] VITALS: BMI 38.4
--- NOTE | 2023-06-22 12:40 | ECG_ITS ---
Test Reason : s/p cardioversion Blood Pressure : / mmHG Vent. Rate : 059 BPM Atrial Rate : 059 BPM P-R Int : 188 ms QRS Dur : 162 ms QT Int : 458 ms P-R-T Axes : 252 022 -13 degrees QTc Int : 453 ms Unusual P axis, possible ectopic atrial bradycardia Right bundle branch block Abnormal ECG When compared with ECG of 23-JAN-2016 13:59, Ectopic atrial rhythm has replaced Sinus rhythm Referred By: Muriel Luna Electronically Signed By:MURIEL LUNA
[2023-06-22 12:45] VITALS: BP 150/94; PULSE 67; RESP 16; TEMP 37.2; O2SAT 94
[2023-06-22 12:50] VITALS: BP 169/100; PULSE 60; RESP 16; O2SAT 97
[2023-06-22 12:55] VITALS: BP 135/73; PULSE 59; RESP 16; O2SAT 97
[2023-06-22 13:00] VITALS: BP 135/87; PULSE 60; RESP 18; TEMP 36.9
[2023-06-22] MEDS: Amiodarone HCL 200 MG TABLET 400 MG PO (13:13)
== END 2023-06-22 13:01 | disposition home or self-care (01) ==
PROVIDERS: PCP Nurse Practitioner Family; Visit Provider Internal Medicine
PROC: 5A2204Z Restoration of Cardiac Rhythm, Single (ICD-10-PCS; principal; 2023-06-22 12:10)
DX: I48.0 Paroxysmal atrial fibrillation (principal); I10 Essential (primary) hypertension; I45.10 Unspecified right bundle-branch block; G47.33 Obstructive sleep apnea (adult) (pediatric); E66.01 Morbid (severe) obesity due to excess calories; Z68.38 Body mass index [BMI] 38.0-38.9, adult; Z79.01 Long term (current) use of anticoagulants; Z79.899 Other long term (current) drug therapy; Z99.89 Dependence on other enabling machines and devices; Z87.891 Personal history of nicotine dependence
CPT/HCPCS: 92960; 93005

== ENCOUNTER → 2023-06-22 10:46 | Outpatient (BNV) | payer MEDICARE, SELFPAY | PROVIDERS: PCP Nurse Practitioner Family; Visit Provider Internal Medicine | DX: I48.0 Paroxysmal atrial fibrillation (principal); R94.31 Abnormal electrocardiogram [ECG] [EKG] | CPT/HCPCS: 92960; 93010 ==

== ENCOUNTER 2023-06-27 06:12 | Outpatient (REF) | payer MEDICARE, SELFPAY ==
[2023-06-27 11:32] LABS: MANUAL DIFF FLAG NO
[2023-06-27 11:46] LABS: Basophils Percent Auto 0.6 % (0-2); Eosinophils Absolute Auto 0.2 X10*3/uL (0.0-0.4); Eosinophils Percent Auto 3.2 % (0-4); Hematocrit 46.2 % (42.0-52.0); Hemoglobin 15.5 g/dl (14.0-18.0); Imm Gran Abs Auto 0.01 X10*3/uL (0.00-0.03); Imm Gran Pct Auto 0.2 % (0.0-0.4); Mean Corpuscular HGB Conc 33.5 g/dl (31.0-36.0); Mean Corpuscular Hemoglobin 31.6 pg (27.0-33.0); Mean Corpuscular Volume 94.1 fL (80.0-98.0); Mean Platelet Volume 9.6 fL (9.4-12.4); Monocytes Absolute Auto 0.3 X10*3/uL (0.1-1.2); Monocytes Percent Auto 6.9 % (2-11); Neutrophils Absolute Auto 3.1 x10*3/uL (2.0-8.3); Neutrophils Percent Auto 68.1 % (45-73); Platelet Count 187 X10*3/uL (160-400); Red Blood Count 4.91 X10*6/uL (4.60-5.80); Red Cell Distribution Width 13.1 % (11.0-16.0); White Blood Count 4.6 X10*3/uL (4.8-10.8)
[2023-06-27 12:06] LABS: Estimated Average Glucose 97 mg/dL
[2023-06-27 12:53] LABS: Folate 5.8 ng/mL (> or = 4.0); Vitamin B12 261 pg/mL (200-900)
[2023-06-27 13:11] LABS: Alanine Aminotransferase 17 U/L (0-40); Alkaline Phosphatase 55 U/L (39-117); Anion Gap 11 (12-20); Aspartate Amino Transferase 15 U/L (5-37); Bilirubin Total 1.2 mg/dL (0.0-1.0); Blood Urea Nitrogen 12 mg/dL (9-16); Calcium 9.2 mg/dL (8.4-10.2); Carbon Dioxide 26 mmol/L (22-29); Chloride 106 mmol/L (96-108); Estimated Glomerular Filt Rate > 60; Glucose Fasting 106 mg/dL (60-99); Potassium 3.8 mmol/L (3.3-5.1); Sodium 139 mmol/L (135-145); Total Protein 6.6 g/dL (6.5-8.0)
[2023-06-27 13:29] LABS: TSH reflex Free T4 5.33 uIU/mL (0.32-4.0)
[2023-06-27 14:12] LABS: Free T4 (Free Thyroxine) 0.92 ng/dL (0.71-1.85)
== END 2023-06-27 06:13 | disposition home or self-care (01) ==
LOC: HO.HMGCLDS 06:12
PROVIDERS: PCP Nurse Practitioner Family; Visit Provider Nurse Practitioner Family
DX: R73.9 Hyperglycemia, unspecified (principal); E53.8 Deficiency of other specified B group vitamins; Z79.899 Other long term (current) drug therapy
CPT/HCPCS: 36415; 80053; 82607; 82746; 83036; 84439; 84443; 85025; 93005

== ENCOUNTER 2023-06-27 08:38 | Outpatient (AMB) | payer MEDICARE, SELFPAY ==
--- NOTE | 2023-06-27 09:06 | AM.OFFVISNUR ---
Intake Intake Visit Reasons: EKG for Amiodarone Investigator Internal Affairs Required: No Accompanied by: Self / Same As Patient Allergies No Known Allergies [No Known Allergies*] Allergy (Verified 06/27/23 09:07) Nursing Note Patient was seen in office for an EKG. Recently cardioverted on 06/22/2023. Currently on loading dose of Amiodarone 400mg BID will decrease to 200mg QD after 14 days. Compliant with Eliquis as well. Pt reports feeling well. EKG shows NSR w/ RBBB heart rate of 65BPM. EKG reviewe by Dr. Best. No changes pt has follow up for 07.12. Office Procedures EKG [id number], Complete Coding Diagnoses CPT Codes EKG - CPT: 99156-[id number], Complete ([id number])
== END 2023-06-27 09:23 | disposition home or self-care (01) ==
PROVIDERS: PCP Nurse Practitioner Family; Referring Provider Nurse Practitioner Family; Visit Provider Nurse Practitioner
DX: R94.31 Abnormal electrocardiogram [ECG] [EKG] (principal); I45.10 Unspecified right bundle-branch block
CPT/HCPCS: 93010

== ENCOUNTER 2023-07-12 14:25 | Outpatient (AMB) | payer MEDICARE, BC, SELFPAY ==
--- NOTE | 2023-07-12 14:33 | A.OFFVIS_ITS ---
Intake Vital Signs 07/12/23 14:34 Height 6 ft 1 in Weight 288 lb 12.889 oz BMI 38.1 BP 134/70 Blood Pressure Location Lt brachial Position Sitting Pulse 68 Intake Visit Reasons: 2 wk s/p cardioversion Intake Note: follow up Accounts Payable Professional Required: No Accompanied by: Self / Same As Patient Allergies No Known Allergies [No Known Allergies*] Allergy (Verified 07/12/23 14:37) Medication List - Last Reconciled 07/12/23 by Lowell Best MD amiodarone 400 mg (2 x 200 mg) PO BID 14 days amiodarone 200 mg PO DAILY amlodipine 2.5 mg PO DAILY apixaban 5 mg PO BID 90 days betamethasone dipropionate 0.05% 1 appl topical DAILY PRN paroxetine HCl 20 mg PO QAM tamsulosin 0.4 mg PO DAILY 90 days tolterodine ER 4 mg PO DAILY 90 days HPI HPI Comments History of Present Illness Details Tyree returns for follow-up regarding paroxysmal atrial fibrillation. To recall, in 2015, he was admitted with atrial fibrillation and rapid rate and underwent ANUP/cardioversion. He was doing well on Multaq till recently when he went back into atrial fibrillation. Nonspecific symptoms like tiredness and some fatigue. Shortness of breath with activity. Subsequently, he underwent 1 further cardioversion. Now he is on amiodarone. He feels slightly better. Remains in sinus rhythm. [facility] Medical History Essential hypertension Incomplete emptying of bladder Morbid obesity EVON on CPAP Paroxysmal atrial fibrillation Weak urinary stream Surgical History History of tonsillectomy Family History Father Heart attack Prostate cancer Mother Heart disease Son Substance use disorder Daughter Substance use disorder Sister Mental health disorder Social History Housing: House Are you a primary laboratory animal caretaker to a significant other at home: No Do you presently have visiting nurse or other home services: No Alcohol intake: never Patient Tobacco Use Status: Former Tobacco user Quit Date: 1983 Years Smoked: 10 +/- e-Cigarette/Vaping Use: Never Used Second Hand Smoke Exposure: No Advance Directives Date on File: 01/22/16 service: Yes Current occupational status: retired Cognitive needs: No Hearing needs: No Vision needs: No Review of Systems Const Denies weakness ENT Denies dizziness Card Denies chest pain, Denies chest pain with activity, Denies syncope, Denies rapid heart rate, Denies pedal edema, Denies edema, Denies leg edema, Denies lightheadedness, Denies palpitations, Denies dyspnea, Denies dyspnea on exertion and Denies orthopnea Resp Denies cough, Denies dyspnea and Denies dyspnea on exertion GI Denies hematochezia and Denies change in stool character Reports no additional complaints and Reports as per HPI Musc Denies abnormal gait, Denies muscle cramps, Denies muscle weakness, Denies numbness, Denies radiating pain into limb and Denies tingling Skin/Breast Reports system reviewed and no additional complaints, except as documented and Reports as per HPI Neuro Denies abnormal gait, Denies dizziness, Denies syncope, Denies numbness, Denies tingling and Denies weakness Psych Reports no additional complaints and Reports as per HPI Endo Denies palpitations Kwabena/Lymph Reports no additional complaints and Reports as per HPI Physical Exam Vital Signs: Last Vital Signs Pulse 68 07/12/23 14:34 BP 134/70 07/12/23 14:34 BMI result Body Mass Index 38.1 Const General: comfortable and no acute distress Orientation/consciousness: patient oriented x3 HEENT Other: Unremarkable Head: Yes normal to inspection Neck Neck: Yes normal visual inspection Chest Chest palpation & inspection: normal inspection of the chest Resp Auscultation: clear to auscultation bilaterally Cardio Palpation: normal PMI Heart sounds: S1 normal heart sound present, S2 normal heart sound present, no gallops, no murmurs and no rubs GI Palpation (GI): Soft to palpation Back/Spine/Pelvis Other: unremarkable Skin General skin exam: no rashes or lesions noted Neuro General: patient oriented x3 Extrem General: Yes normal to inspection Psych Mental Status: mental status grossly normal Office Procedures EKG Details: EKG with sinus rhythm at 68/Min; right bundle-branch block pattern. Borderline VA prolongation 202 millisecond; corrected QT is 470 milliseconds. [id number], Complete Assessment & Plan Assessment & Plan (1) Paroxysmal atrial fibrillation: Code(s): I48.0 - Paroxysmal atrial fibrillation Plan: Was stable on Multaq for many years but recently went back into atrial fibrillation and had cardioversion for the same. By EKG, remains in sinus rhythm. At his age, probably not use long-term amiodarone. Discussed with patient about atrial fibrillation ablation he is willing to consider. We will refer him to [facility] EP for evaluation. In the interim, continue amiodarone at 200 mg daily. Continue anticoagulation. Last stress test -2015 -showed likely normal perfusion with diaphragmatic attenuation of the inferior wall on gated LVEF of 72%. Last echocardiogram - 2019 - showed normal LVEF, 60-65% and mild LVH/mild diastolic dysfunction but otherwise unremarkable. (2) Essential hypertension: Code(s): I10 - Essential (primary) hypertension Plan: Stable. No changes. (3) EVON on CPAP: Code(s): G47.33 - Obstructive sleep apnea (adult) (pediatric); Z99.89 - Dependence on other enabling machines and devices Plan: He is using regular CPAP. (4) Morbid obesity: Code(s): E66.01 - Morbid (severe) obesity due to excess calories Plan: His weight has been high for quite some time. Not sure how much meaningful weight loss feasible. Plan We will see him in follow-up after seen by EP at [facility]. Orders: Referrals Cardiac Electrophysiology Referral I48.0 - Paroxysmal atrial fibrillation Medications: Changed From amiodarone AFTER LOADING DOSE. Once daily. RX 2 of 2 200 mg PO DAILY 90 tabs 0RF To amiodarone 200 mg PO DAILY 90 tabs 1RF Discontinued amiodarone LOADING DOSE two tablets (400mg) twice a day for 14 days RX 1 of 2 Discontinued Reason: Doctor's Order 400 mg (2 x 200 mg) PO BID 14 days 56 tabs 0RF Coding Level of Care Code Est Pt Level 4 (59736) Diagnoses Paroxysmal atrial fibrillation I48.0 Essential hypertension I10 EVON on CPAP G47.33; Z99.89 Morbid obesity E66.01 CPT Codes EKG - CPT: 02533-[id number], Complete ([id number])
[2023-07-12 14:34] VITALS: BP 134/70; PULSE 68; BMI 38.1
== END 2023-07-12 14:54 | disposition home or self-care (01) ==
PROVIDERS: PCP Nurse Practitioner Family; Referring Provider Nurse Practitioner Family; Visit Provider Internal Medicine
DX: I48.0 Paroxysmal atrial fibrillation (principal); I10 Essential (primary) hypertension; G47.33 Obstructive sleep apnea (adult) (pediatric); Z99.89 Dependence on other enabling machines and devices; E66.01 Morbid (severe) obesity due to excess calories
CPT/HCPCS: 93010; 99214

== ENCOUNTER → 2023-07-12 14:25 | Outpatient (BNVA) | payer MEDICARE, BC, SELFPAY | PROVIDERS: PCP Nurse Practitioner Family; Referring Provider Nurse Practitioner Family; Visit Provider Internal Medicine | DX: I48.0 Paroxysmal atrial fibrillation (principal); I10 Essential (primary) hypertension; G47.33 Obstructive sleep apnea (adult) (pediatric); E66.01 Morbid (severe) obesity due to excess calories; Z68.38 Body mass index [BMI] 38.0-38.9, adult; Z79.01 Long term (current) use of anticoagulants; Z79.899 Other long term (current) drug therapy; Z99.89 Dependence on other enabling machines and devices | CPT/HCPCS: 93005; 99212 ==

== ENCOUNTER 2023-07-14 10:03 | Outpatient (AMB) | payer MEDICARE, BC, SELFPAY ==
--- NOTE | 2023-07-14 10:07 | MHC.OFFVIS ---
Intake Intake Visit Reasons: 6m follow up/PVR Intake Note: Patient is present for PVR Follow up/urgency Urology Med: Tolterodine, tamsulosin Antibiotic Allergy: none Blood Thinner: Apixaban(Eliquis) PVR: Aircraft Engine Dismantler Required: No Allergies No Known Allergies [No Known Allergies*] Allergy (Verified 07/12/23 14:37) Medication List - Last Reconciled 07/14/23 by Farzad Ivan MD amiodarone 200 mg PO DAILY amlodipine 2.5 mg PO DAILY apixaban 5 mg PO BID 90 days betamethasone dipropionate 0.05% 1 appl topical DAILY PRN paroxetine HCl 20 mg PO QAM tamsulosin 0.4 mg PO DAILY 90 days tolterodine ER 4 mg PO DAILY 90 days HPI HPI Comments History of Present Illness Details Tyree GARCIA is a very pleasant male. He is a patient of Dr Woody. He is seen for the following urologic conditions. - BPH - urinary urgency Relatively stable urinary parameters Persistent urge frequency but does note that he drinks too much coffee Continues with EVON mask and has been thirsty at night Prescription refill 6 month follow-up Lower Urinary Tract Symptoms: Current visit is for further evaluation of, lower urinary tract symptoms, predominate obstructive symptoms. Current treatment includes medication, alpha dayo - tamsulosin 0.4 mg with tolterodine Prostate Symptom Score 10/19 , Moderate (9-19), Bother 3. Symptoms include 10/19 , incomplete emptying, weak stream, nocturia (>2), and are progressing. PSA 09/06 0.22, 10/11 0.3 Prostate volume 30-50gm. Treatment plan 6 month follow-up [facility] Medical History Essential hypertension Incomplete emptying of bladder Morbid obesity EVON on CPAP Paroxysmal atrial fibrillation Weak urinary stream Surgical History History of tonsillectomy Family History Father Heart attack Prostate cancer Mother Heart disease Son Substance use disorder Daughter Substance use disorder Sister Mental health disorder Social History Housing: House Are you a primary critical care registered nurse to a significant other at home: No Do you presently have visiting nurse or other home services: No Alcohol intake: never Patient Tobacco Use Status: Former Tobacco user Quit Date: 1983 Smoked: 10 +/- e-Cigarette/Vaping Use: Never Used Second Hand Smoke Exposure: No Advance Directives Date on File: 01/22/16 service: Yes Current occupational status: retired Cognitive needs: No Hearing needs: No Vision needs: No Review of Systems Const Denies chills and Denies fever(s) Card Reports no additional complaints and Denies syncope Resp Denies cough GI Denies abdominal pain and Denies heartburn Reports as per HPI and Denies change in libido Neuro Denies syncope Psych Denies change in libido Endo Denies change in libido Physical Exam Const General: cooperative, healthy appearing, comfortable and no acute distress Orientation/consciousness: patient oriented x3 HEENT Face and sinus: Yes normal facial exam Mouth: moist mucous membranes Neck Neck: Yes normal visual inspection, Yes full ROM and Yes trachea midline Chest Chest palpation & inspection: normal inspection of the chest Resp Effort & Inspection: normal respiratory effort, able to speak in complete sentences and no respiratory distress GI Inspection: Yes normal to inspection Back/Spine/Pelvis Cervical Spine: normal cervical lordosis Thoracic/Lumbar Spine: thoracic and lumbar spine normal to inspection Skin General skin exam: no rashes or lesions noted Neuro General: patient oriented x3, gait normal, tone normal and moves all extremities Extrem General: Yes normal to inspection and Yes capillary refill normal Assessment & Plan Assessment & Plan (1) Weak urinary stream: Code(s): R39.12 - Poor urinary stream (2) Urinary urgency: Code(s): R39.15 - Urgency of urination (3) Nocturia more than twice per night: Code(s): R35.1 - Nocturia Plan 6 month follow-up PSA Orders: Orders Prostate Specific Antigen 6 Months R39.15 - Urgency of urination AMB Urinalysis Automated Today Z13.9 - Encounter for screening, unspecified AMB Post Void Residual by ultrasound Today N39.8 - Other specified disorders of urinary system Patient Instructions: Imaging studies, laboratory and physical exam results were discussed and reviewed in detail. No major barriers to patient understanding were identified. An opportunity to ask questions regarding the treatment plan was provided. All questions were answered. The patient expressed understanding and agreement with the above treatment plan. The patient is aware they should contact our office by phone for worsening of their current condition or the appearance of new urologic symptoms. Compliance is encouraged with any medications and followup testing that is ordered. It is a privilege to participate in the urologic care of your patient. If you have any questions or concerns regarding treatment for the above conditions, or other urologic issues, please do not hesitate to contact me. The office telephone contact is [phone]. This note is constructed using voice recognition software. While every effort has been made to ensure accuracy cider maker errors may have been included. Yours sincerely, Dr Farzad Ivan MD, [facility] - Urology Providers of Expert, Compassionate Care for the Genitourinary System Coding Level of Care Code Est Pt Level 3 (57116) Diagnoses Weak urinary stream R39.12 Urinary urgency R39.15 Nocturia more than twice per night R35.1
== END 2023-07-14 10:25 | disposition home or self-care (01) ==
PROVIDERS: PCP Nurse Practitioner Family; Visit Provider Urology
DX: R39.12 Poor urinary stream (principal); R39.15 Urgency of urination; R35.1 Nocturia; Z13.9 Encounter for screening, unspecified
CPT/HCPCS: 99213

== ENCOUNTER → 2023-07-14 10:03 | Outpatient (BNVA) | payer MEDICARE, BC, SELFPAY | PROVIDERS: Visit Provider Urology | DX: N40.1 Benign prostatic hyperplasia with lower urinary tract symptoms (principal); R39.12 Poor urinary stream; R39.15 Urgency of urination; R35.1 Nocturia | CPT/HCPCS: 51798; 81003; 99212 ==

== ENCOUNTER 2023-08-03 08:36 | Outpatient (REF) | payer MEDICARE, BC, SELFPAY ==
[2023-08-03 12:09] LABS: Appearance Urine Clear; Color Urine Yellow; Glucose Urine UA Negative (Negative); Leukocyte Esterase Urine Negative (Negative); Nitrite Urine Negative (Negative); PH 7.5 (5.0-9.0); Urine Blood Negative (Negative); Urine Ketones Negative (Negative); Urine Protein Negative (Neg-Trace)
[2023-08-03 12:49] LABS: TSH reflex Free T4 4.57 uIU/mL (0.32-4.0)
[2023-08-03 12:53] LABS: Folate 5.2 ng/mL (> or = 4.0); Vitamin B12 307 pg/mL (200-900)
[2023-08-03 13:28] LABS: Free T4 (Free Thyroxine) 0.95 ng/dL (0.71-1.85)
[2023-08-04 09:34] LABS: HBS Num1 0.22 mIU/mL (0-7.99); HBc Num1 0.08 S/CO (0.00-0.79); HBsAGNum1 0.37 S/CO (0.00-0.99); Hepatitis A Antibody IgM 0.13 Index (0-0.79); Hepatitis B Core Antibody Nonreactive (Nonreactive); Hepatitis B Surface Antigen Negative (Negative); ~HepC Num1 0.05 S/CO (0.00-0.79); ~Hepatitis A Antibody IgM Nonreactive (Nonreactive); ~Hepatitis B Surface Antibody NONREACTIVE (Nonreactive); ~Hepatitis C Antibody Nonreactive (Nonreactive)
[2023-08-08 02:17] LABS: Thyroid Peroxidase Antibodies <1 IU/mL (<9)
[2023-08-09 22:14] LABS: Intrinsic Factor Antibodies Negative (Negative)
[2023-08-10 12:13] LABS: Parietal Cell Antibody <=20.0 Unit (<=20.0)
== END 2023-08-03 08:37 | disposition home or self-care (01) ==
LOC: HO.HMGCLDS 08:36
PROVIDERS: PCP Nurse Practitioner Family; Visit Provider Nurse Practitioner Family
DX: Z00.00 Encounter for general adult medical examination without abnormal findings (principal); E53.8 Deficiency of other specified B group vitamins; R79.89 Other specified abnormal findings of blood chemistry; R53.83 Other fatigue; Z11.59 Encounter for screening for other viral diseases; Z72.89 Other problems related to lifestyle
CPT/HCPCS: 36415; 81003; 82607; 82746; 83516; 84439; 84443; 86340; 86376; 86704; 86706; 86709; 86803; 87340

== ENCOUNTER 2023-09-21 10:07 | Outpatient (REF) | payer MEDICARE, BC, SELFPAY ==
[2023-09-22 09:09] LABS: Mumps Virus IgG Antibody >300.00 AU/mL; Rubella IgG Antibody 3.13 Index; Rubeola IgG (Measles) >300.00 AU/mL
[2023-09-23 22:54] LABS: TS Negative Control Passed; TS Panel A 0; TS Panel B 0; TS Positive Control Passed; TSpotTB Negative (Negative)
== END 2023-09-21 10:08 | disposition home or self-care (01) ==
LOC: HO.HMGCLDS 10:07
PROVIDERS: PCP Nurse Practitioner Family; Visit Provider Nurse Practitioner Family
DX: Z11.1 Encounter for screening for respiratory tuberculosis (principal); Z28.39 Other underimmunization status
CPT/HCPCS: 36415; 86481; 86735; 86762; 86765; 86787

== ENCOUNTER 2023-10-02 09:55 | Outpatient (AMB) | payer MEDICARE, BC, SELFPAY ==
--- NOTE | 2023-10-02 10:50 | AM.OFFVISNUR ---
Intake Intake Visit Reasons: Hep B vaccine- #1 of 3 Intake Note: Pt arrived for Hep B #1. He will return in 1 month for #2 of 3. Immunization form completed with titer dates and returned to pt without a signature because he hasn't completed the Hep B immunizations. Allergies No Known Allergies [No Known Allergies*] Allergy (Verified 07/12/23 14:37) Immunizations Engerix-B (PF) 20 mcg/mL intramuscular suspension Performing Provider: PATTI Arcos Performing Location: [facility] [place] [facility] Administered by: Martha Fam RN on 10/02/23 10:52 Dose Route Admin Location Dispensed Lot Number Expiration Date NDC Screedman/Laborer 1 mL IM Right Deltoid 1 mL [id number] 10/22/23 10932-147-86 Wishpot VIS Given Date VIS Provided VIS Publication Date 10/02/23 Single Vaccine 23 Eligibility Eligibility Date Funding Source Not [facility] Eligible 10/02/23 Private Coding Assessment & Plan Assessment & Plan Orders: Orders Hepatitis B Adult Immunization Today Z23 - Encounter for immunization
== END 2023-10-02 11:43 | disposition home or self-care (01) ==
PROVIDERS: PCP Nurse Practitioner Family; Visit Provider Nurse Practitioner Family
DX: Z23 Encounter for immunization (principal)
CPT/HCPCS: 90471; 90746

== ENCOUNTER 2023-11-02 09:58 | Outpatient (AMB) | payer MEDICARE, BC, SELFPAY ==
--- NOTE | 2023-11-02 10:22 | AM.OFFVISNUR ---
Intake Intake Visit Reasons: Hep BVac Intake Note: Patient here for get 2nd Hep B vaccine out of 3. Allergies No Known Allergies [No Known Allergies*] Allergy (Verified 07/12/23 14:37) Immunizations Recombivax HB (PF) 10 mcg/mL intramuscular suspension Performing Provider: PATTI Arcos [facility] Administered by: CHAVO Jordan on 11/02/23 10:23 Dose Route Admin Location Dispensed Lot Number Expiration Date [facility] Dental Hygienist 1 mL IM Left Deltoid 1 mL [id number] 01/14/24 [id number] Placeword VIS Given Date VIS Provided VIS Publication Date 11/02/23 Single Vaccine 23 Eligibility Eligibility Date Funding Source Not [facility] Eligible 11/02/23 Private Coding Assessment & Plan Assessment & Plan Orders: Orders Hepatitis B Adult Immunization Today Z23 - Encounter for immunization
== END 2023-11-02 10:24 | disposition home or self-care (01) ==
PROVIDERS: PCP Nurse Practitioner Family; Visit Provider Nurse Practitioner Family
DX: Z23 Encounter for immunization (principal)
CPT/HCPCS: 90471; 90746

== ENCOUNTER 2023-11-28 09:20 | Outpatient (AMB) | payer MEDICARE, BC, SELFPAY ==
--- NOTE | 2023-11-28 09:22 | A.OFFPC_ITS ---
Vital Signs 11/28/23 09:24 Weight 294 lb BP 122/70 Blood Pressure Location Rt brachial Position Sitting Pulse 72 Pulse Source Pulse Oximeter Pulse Oximetry (%) 97 Oxygen Delivery Method Room Air Intake Visit Reasons: 6 month f/u Intake Note: Patient here for Hypertension F/U. Allergies No Known Allergies [No Known Allergies*] Allergy (Verified 11/28/23 09:24) Medication List - Last Reconciled 11/28/23 by PATTI Arcos amiodarone 200 mg PO DAILY amlodipine 2.5 mg PO DAILY apixaban 5 mg PO BID 90 days betamethasone dipropionate 0.05% 1 appl topical DAILY PRN paroxetine HCl 20 mg PO QAM tamsulosin 0.4 mg PO DAILY 90 days tolterodine ER 4 mg PO DAILY 90 days Tobacco use date assessed: 11/28/23 Fall risk assessment: 1 Fall in past year Last assessed Fall Risk: 11/28/23 Dental Screening Dental Screen Date: 11/28/23 Did you have a dental visit in the last 12 months?: Yes Did you have a dental problem in the last 6 months where you did not have access to dental care?: No Was dental information given to patient?: Patient has dentist HPI 6 month f/u HPI Details HTN: Blood pressure is stable, managed with amlodipine 2.5mg. Will order labs. Denies chest pain, shortness of breath, headache, dizziness, and blurred vision. Pt follows up with cardiology regularly. [facility] Medical History Essential hypertension Incomplete emptying of bladder Morbid obesity EVON on CPAP Paroxysmal atrial fibrillation Weak urinary stream Surgical History History of tonsillectomy Family History Father Heart attack Prostate cancer Mother Heart disease Son Substance use disorder Daughter Substance use disorder Sister Mental health disorder Social History Housing: House Are you a primary managed care coordinator to a significant other at home: No Do you presently have visiting nurse or other home services: No Alcohol intake: never Patient Tobacco Use Status: Former Tobacco user Quit Date: 1983 Smoked: 10 +/- e-Cigarette/Vaping Use: Never Used Second Hand Smoke Exposure: No Advance Directives Date on File: 01/22/16 service: Yes Current occupational status: retired Cognitive needs: No Hearing needs: No Vision needs: No Questionnaire PHQ-9 Over the last 2 weeks, how often have you been bothered by any of the following problems? 42272 - PHQ-9 Billing: Patient declined-do not bill Source: Developed by Drs. Huang Wing, Sridhar Cannon and colleagues, with an educational bryanna from [employer]. Thrive Questionnaire Date Thrive assessed: 11/28/23 What is your living situation today?: I choose not to answer this question Within the past 12 months, did the food you bought not last and you didn't have the money to get more?: I choose not to answer this question Within the past 12 months, did you worry whether your food would run out before you got money to buy more?: I choose not to answer this question Do you have trouble paying for medicines?: I choose not to answer this question Do you have trouble getting transportation to medical appointments?: I choose not to answer this question Do you have trouble paying your heating and electricity bill?: I choose not to answer this question Do you have trouble taking care of your child, family member or friend?: I choose not to answer this question Do you have trouble with day-to-day activities such as bathing, preparing meals, shopping, managing finances, etc.?: I choose not to answer this question Are you currently unemployed and looking for a job?: I choose not to answer this question Are you interested in more education?: I choose not to answer this question Currently or been in a relationship where the following occur: I choose not to answer this question AUDIT C Alcohol Use Questionnaire (AUDIT-C) 1. How often do you have a drink containing alcohol?: Never 3. How often do you have six or more drinks on one occasion?: Never Total Score: 0 Score Reviewed/Action Taken: No YESSENIA-7 AMB Questionnaire YESSENIA-7 Date YESSENIA - 7 assessed: 11/28/23 Source: Developed by Drs. Huang Wing, Sridhar Cannon and colleagues, with an educational bryanna from [employer]. Review of Systems Const Reports as per HPI Physical exam (Primary Care) Vital Signs: Last Vital Signs Pulse 72 11/28/23 09:24 BP 122/70 11/28/23 09:24 Pulse Ox 97 11/28/23 09:24 Oxygen Delivery Method Room Air 11/28/23 09:24 Tobacco/Smoking Status: Tobacco use Status Tobacco use date assessed 11/28/23 11/28/23 09:28 Patient Tobacco Use Status Former Tobacco user 11/28/23 09:24 e-Cigarette/Vaping Use Never Used 11/28/23 09:24 Thrive Assessment: Date of Thrive Assessment Date Thrive assessed 11/28/23 11/28/23 09:28 Currently or been in a relationship where the following occur: I choose not to answer this question Const General: cooperative, healthy appearing and comfortable Nutritional Appearance: obese Orientation/consciousness: patient oriented x3 Resp Effort & Inspection: normal respiratory effort Auscultation: clear to auscultation bilaterally Cardio Rate: regular rate Rhythm: abnormal rhythm irregularly irregular Heart sounds: S1 normal heart sound present and S2 normal heart sound present Neuro General: patient oriented x3 Extrem Left lower extremity: edema (trace) Psych Appearance: grossly normal Mental Status: mental status grossly normal Speech and movement: Normal speech and movement present Affect: normal affect Attitude: cooperative Thought process: Normal thought process present Thought content: Normal thought content present Insight: Good insight present (Psych) Judgement: Good judgement present (Psych) Assessment and Plan Assessment & Plan (1) Essential hypertension: Code(s): I10 - Essential (primary) hypertension Plan: Labs ordered (2) B12 deficiency: Code(s): E53.8 - Deficiency of other specified B group vitamins Plan The patient agreed to the use of a biomedical equipment technician for this encounter. Scribed for PATTI Lema by Tonya Grayson biomedical equipment technician, on 11/28/2023 at 09:40 EST. Orders: Orders UA CC w/rflx Micro + Cult Today I10 - Essential (primary) hypertension Lipid Panel Today I10 - Essential (primary) hypertension Vitamin B12 and Folate Today E53.8 - Deficiency of other specified B group vitamins Complete Blood Count Auto Diff Today I10 - Essential (primary) hypertension Comprehensive [place]. Panel Fast Today I10 - Essential (primary) hypertension TSH reflex Free T4 Today I10 - Essential (primary) hypertension Coding Level of Care Code Est Pt Level 3 (24522) Diagnoses Essential hypertension I10 B12 deficiency E53.8
[2023-11-28 09:24] VITALS: BP 122/70; PULSE 72; O2SAT 97
== END 2023-11-28 09:58 | disposition home or self-care (01) ==
PROVIDERS: PCP Nurse Practitioner Family; Visit Provider Nurse Practitioner Family
DX: I10 Essential (primary) hypertension (principal); E53.8 Deficiency of other specified B group vitamins
CPT/HCPCS: 99213

== ENCOUNTER 2023-12-26 09:25 | Outpatient (AMB) | payer MEDICARE, BC, SELFPAY ==
--- NOTE | 2023-12-26 09:32 | A.OFFVIS_ITS ---
Intake Vital Signs 12/26/23 09:37 Height 6 ft 1 in Weight 290 lb 4 oz BMI 38.3 BP 132/80 Blood Pressure Location Lt brachial Position Sitting Pulse 78 Pulse Source Pulse Oximeter Pulse Oximetry (%) 99 Oxygen Delivery Method Room Air Intake Visit Reasons: 1 yr f/u for sleep - CONF Intake Note: Patient presents for 1 year f/u Allergies No Known Allergies [No Known Allergies*] Allergy (Verified 12/26/23 09:35) HPI HPI Comments History of Present Illness Details 68 y/o male patient presents for follow up of EVON on CPAP. The compliance report and therapy response (09/15/23-12/13/23) reviewed with patient. Pt is on CPAP at [id number]. Usage days 100% and average usage hours 8 hours. The residual AHI was 0.5/hr. Pt reports he sleeps well with CPAP from 9:30 pm to 5:30 am. Daytime tiredness has improved. He does exercise, walking couple of times a week. [facility] Medical History Essential hypertension Incomplete emptying of bladder Morbid obesity EVON on CPAP Paroxysmal atrial fibrillation Weak urinary stream Surgical History History of tonsillectomy Family History Father Heart attack Prostate cancer Mother Heart disease Son Substance use disorder Daughter Substance use disorder Sister Mental health disorder Social History Housing: House Are you a primary manager intensive care to a significant other at home: No Do you presently have visiting nurse or other home services: No Alcohol intake: never Patient Tobacco Use Status: Former Tobacco user Quit Date: 1983 Years Smoked: 10 +/- e-Cigarette/Vaping Use: Never Used Second Hand Smoke Exposure: No Advance Directives Date on File: 01/22/16 service: Yes Current occupational status: retired Cognitive needs: No Hearing needs: No Vision needs: No Review of Systems Const All systems reviewed & are unremarkable except as noted in HPI and below ENT Reports Normal hearing present Neuro Reports Normal hearing present Physical Exam Vital Signs: Last Vital Signs Pulse 78 12/26/23 09:37 BP 132/80 12/26/23 09:37 Pulse Ox 99 12/26/23 09:37 Oxygen Delivery Method Room Air 12/26/23 09:37 BMI result Body Mass Index 38.3 Const General: cooperative and no acute distress Nutritional Appearance: obese Orientation/consciousness: patient oriented x3 Limitations: no limitations Eyes Pupils: Equal, round and reactive pupils present Neck Neck: Yes full ROM Neuro General: patient oriented x3 Cranial nerves: Yes Equal, round and reactive pupils present, Yes Bilaterally intact EOM present, Yes Normal hearing present and Yes Ability to bilaterally elevate shoulders present Cognition (Neuro): normal cognition Gait exam (Neuro): Normal gait present Psych Appearance: grossly normal Mental Status: mental status grossly normal Speech and movement: Normal speech and movement present Affect: normal affect Attitude: cooperative Thought process: Normal thought process present Assessment & Plan Assessment & Plan (1) EVON on CPAP: Code(s): G47.33 - Obstructive sleep apnea (adult) (pediatric); Z99.89 - Dependence on other enabling machines and devices Plan Advised patient to continue to use CPAP at [id number] as patient experiences good clinical effects, good quality sleep, breathing and daytime sleepiness has improved. Wt reduction advised. Coding Level of Care Code Est Pt Level 3 (17746) Diagnoses EVON on CPAP G47.33; Z99.89
[2023-12-26 09:37] VITALS: BP 132/80; PULSE 78; O2SAT 99; BMI 38.3
== END 2023-12-26 09:48 | disposition home or self-care (01) ==
PROVIDERS: Visit Provider Nurse Practitioner Family
DX: G47.33 Obstructive sleep apnea (adult) (pediatric) (principal); Z99.89 Dependence on other enabling machines and devices
CPT/HCPCS: 99213

== ENCOUNTER → 2023-12-26 09:25 | Outpatient (BNVA) | payer BC, SELFPAY | PROVIDERS: Visit Provider Nurse Practitioner Family ==

== ENCOUNTER 2024-01-05 06:14 | Outpatient (REF) | payer MEDICARE, BC, SELFPAY ==
[2024-01-05 11:15] LABS: MANUAL DIFF FLAG NO
[2024-01-05 11:22] LABS: Appearance Urine Turbid; Color Urine Dark Yellow; Glucose Urine UA Negative (Negative); Leukocyte Esterase Urine Trace (Negative); Nitrite Urine Negative (Negative); PH 5.5 (5.0-9.0); UMIC TRIGGER UACC YES; Urine Blood Negative (Negative); Urine Ketones Negative (Negative); Urine Protein Negative (Neg-Trace)
[2024-01-05 11:29] LABS: Bacteria Urine None Seen (None Seen); Hyaline Casts Urine 0-2 /LPF (0-2); RBC Urine 0-2 /HPF (0-2); Squamous Epithelial Cell Urine 0-2 /HPF (0-2); WBC Urine 0-5 /HPF (0-5)
[2024-01-05 11:38] LABS: Alanine Aminotransferase 20 U/L (0-40); Albumin Level 3.9 g/dL (3.5-5.0); Alkaline Phosphatase 62 U/L (39-117); Anion Gap 13 (12-20); Aspartate Amino Transferase 16 U/L (5-37); Bilirubin Total 0.8 mg/dL (0.0-1.0); Blood Urea Nitrogen 12 mg/dL (9-16); Calcium 8.8 mg/dL (8.4-10.2); Carbon Dioxide 25 mmol/L (22-29); Chloride 106 mmol/L (96-108); Cholesterol 168 mg/dL (<200); Estimated Glomerular Filt Rate > 60; Glucose Fasting 106 mg/dL (60-99); HDL Cholesterol 39 mg/dL (>40); LDL Cholesterol Calculated 116 mg/dL (<100); Potassium 3.6 mmol/L (3.3-5.1); Sodium 140 mmol/L (135-145); Total Protein 6.5 g/dL (6.5-8.0); Triglycerides 65 mg/dL (<150)
[2024-01-05 12:00] LABS: TSH reflex Free T4 5.58 uIU/mL (0.32-4.0)
[2024-01-05 12:02] LABS: Folate 5.2 ng/mL (> or = 4.0); Vitamin B12 271 pg/mL (200-900)
[2024-01-05 12:25] LABS: Basophils Percent Auto 0.7 % (0-2); Eosinophils Absolute Auto 0.2 X10*3/uL (0.0-0.4); Eosinophils Percent Auto 4.2 % (0-4); Hematocrit 42.9 % (42.0-52.0); Hemoglobin 14.9 g/dl (14.0-18.0); Imm Gran Abs Auto 0.02 X10*3/uL (0.00-0.03); Imm Gran Pct Auto 0.5 % (0.0-0.4); Lymphocytes Absolute Auto 0.8 X10*3/uL (1.2-4.9); Lymphocytes Percent Auto 19.8 % (20-40); Mean Corpuscular HGB Conc 34.7 g/dl (31.0-36.0); Mean Corpuscular Hemoglobin 32.5 pg (27.0-33.0); Mean Corpuscular Volume 93.5 fL (80.0-98.0); Mean Platelet Volume 9.6 fL (9.4-12.4); Monocytes Absolute Auto 0.4 X10*3/uL (0.1-1.2); Monocytes Percent Auto 8.7 % (2-11); Neutrophils Absolute Auto 2.7 x10*3/uL (2.0-8.3); Neutrophils Percent Auto 66.1 % (45-73); Platelet Count 159 X10*3/uL (160-400); Red Blood Count 4.59 X10*6/uL (4.60-5.80); Red Cell Distribution Width 13.1 % (11.0-16.0)
[2024-01-05 12:34] LABS: Free T4 (Free Thyroxine) 1.06 ng/dL (0.71-1.85)
== END 2024-01-05 06:15 | disposition home or self-care (01) ==
LOC: HO.HMGCLDS 06:14
PROVIDERS: PCP Nurse Practitioner Family; Referring Provider Urology; Visit Provider Nurse Practitioner Family
DX: Z12.5 Encounter for screening for malignant neoplasm of prostate (principal); R39.15 Urgency of urination; E53.8 Deficiency of other specified B group vitamins; I10 Essential (primary) hypertension
CPT/HCPCS: 36415; 80053; 80061; 81001; 82607; 82746; 84153; 84439; 84443; 85025

== ENCOUNTER 2024-01-16 10:03 | Outpatient (AMB) | payer MEDICARE, BC, SELFPAY ==
--- NOTE | 2024-01-16 10:05 | MHC.OFFVIS ---
Intake Intake Visit Reasons: 6m/PSA(set)Confirmed Intake Note: Patient is Present for Telephone Follow Up PSA Urology Med: Tamsulosin, Tolterodine Antibiotic Allergy: None Blood Thinner: Apixaban (Eliquis) Confirmed [facility]acy: [facility] Allergies No Known Allergies [No Known Allergies*] Allergy (Verified 12/26/23 09:35) Medication List - Last Reconciled 01/16/24 by Farzad Ivan MD amiodarone 200 mg PO DAILY amlodipine 2.5 mg PO DAILY apixaban 5 mg PO BID 90 days betamethasone dipropionate 0.05% 1 appl topical DAILY PRN paroxetine HCl 20 mg PO QAM tamsulosin 0.4 mg PO DAILY 90 days tolterodine ER 4 mg PO DAILY 90 days HPI HPI Comments History of Present Illness Details Tyree GARCIA is a very pleasant male. He is a patient of Dr Woody. He is seen for the following urologic conditions. - BPH - urinary urgency Telemedicine Evaluation 15 min Consultation Doxblabfeed Mya Video attempted Relatively stable urinary parameters Persistent urge frequency but does note that he drinks too much coffee Continues with EVON mask and has been thirsty at night Prescription refill 6 month follow-up Lower Urinary Tract Symptoms: Current visit is for further evaluation of, lower urinary tract symptoms, predominate obstructive symptoms. Current treatment includes medication, alpha dayo - tamsulosin 0.4 mg with tolterodine Prostate Symptom Score 10/19 , Moderate (9-19), Bother 3. Symptoms include 10/19 , incomplete emptying, weak stream, nocturia (>2), and are progressing. PSA 09/06 0.2, 10/11 0.3, 01/13 0.2 - family history of prostate cancer with father Prostate volume 30-50gm. Treatment plan 6 month follow-up [facility] Medical History Essential hypertension Incomplete emptying of bladder Morbid obesity EVON on CPAP Paroxysmal atrial fibrillation Weak urinary stream Surgical History History of tonsillectomy Family History Father Heart attack Prostate cancer Mother Heart disease Son Substance use disorder Daughter Substance use disorder Sister Mental health disorder Social History (Reviewed 12/26/23 @ 09:36 by MARK Hines Housing: House Are you a primary child care associate to a significant other at home: No Do you presently have visiting nurse or other home services: No Alcohol intake: never Patient Tobacco Use Status: Former Tobacco user Quit Date: 1983 Smoked: 10 +/- e-Cigarette/Vaping Use: Never Used Second Hand Smoke Exposure: No Advance Directives Date on File: 01/22/16 service: Yes Current occupational status: retired Cognitive needs: No Hearing needs: No Vision needs: No Review of Systems Const All systems reviewed & are unremarkable except as noted in HPI and below Reports no additional complaints Resp Reports no additional complaints GI Reports no additional complaints Reports as per HPI Musc Reports no additional complaints Physical Exam Telemedicine evaluation Appropriate responses Regular breathing rate and rhythm HEENT Head: Yes normal to inspection Ears: hearing grossly normal bilaterally Eyes General: appearance normal, both eyes and all related structures Neck Neck: Yes normal visual inspection Chest Chest palpation & inspection: normal inspection of the chest Resp Effort & Inspection: normal respiratory effort and able to speak in complete sentences Assessment & Plan Assessment & Plan (1) Nocturia more than twice per night: Code(s): R35.1 - Nocturia (2) Urinary urgency: Code(s): R39.15 - Urgency of urination (3) Weak urinary stream: Code(s): R39.12 - Poor urinary stream Plan Six-month follow-up [facility] Medications: Refilled tolterodine ER 4 mg PO DAILY 90 caps 1RF 90 days N31.8 - Other neuromuscular dysfunction of bladder, N40.0 - Benign prostatic hyperplasia without lower urinary tract symptoms tamsulosin 0.4 mg PO DAILY 90 caps 1RF 90 days R39.12 - Poor urinary stream Patient Instructions: Imaging studies, laboratory and physical exam results were discussed and reviewed in detail. No major barriers to patient understanding were identified. An opportunity to ask questions regarding the treatment plan was provided. All questions were answered. The patient expressed understanding and agreement with the above treatment plan. The patient is aware they should contact our office by phone for worsening of their current condition or the appearance of new urologic symptoms. Compliance is encouraged with any medications and followup testing that is ordered. It is a privilege to participate in the urologic care of your patient. If you have any questions or concerns regarding treatment for the above conditions, or other urologic issues, please do not hesitate to contact me. The office telephone contact is [phone]. This note is constructed using voice recognition software. While every effort has been made to ensure accuracy stencil machine operator errors may have been included. Yours sincerely, Dr Farzad Ivan MD, [facility] - Urology Providers of Expert, Compassionate Care for the Genitourinary System Telehealth Telehealth Location of provider rendering services: practice address Location of patient: address on file Patient Identification confirmed using: Name, : Yes Telehealth method: video Patient verbally consented to treatment: Yes Patient verbally consented to billing insurance company: Yes Patient informed of any privacy concerns related to visit: Yes Coding Level of Care Code Tele Est Pt Level 3 (68885) Diagnoses Nocturia more than twice per night R35.1 Urinary urgency R39.15 Weak urinary stream R39.12
== END 2024-01-16 10:49 | disposition home or self-care (01) ==
LOC: HO.HUSH 10:04
PROVIDERS: PCP Nurse Practitioner Family; Visit Provider Urology
DX: R35.1 Nocturia (principal); R39.15 Urgency of urination; R39.12 Poor urinary stream
CPT/HCPCS: 99213

== ENCOUNTER → 2024-01-16 10:03 | Outpatient (BNVA) | payer BC, SELFPAY | PROVIDERS: PCP Nurse Practitioner Family; Visit Provider Urology ==

== ENCOUNTER 2024-01-22 13:13 | Outpatient (REF) | payer MEDICARE, BC, SELFPAY ==
[2024-01-22 16:03] LABS: MANUAL DIFF FLAG NO
[2024-01-22 16:20] LABS: Basophils Percent Auto 0.8 % (0-2); Eosinophils Absolute Auto 0.1 X10*3/uL (0.0-0.4); Eosinophils Percent Auto 2.7 % (0-4); Hematocrit 42.8 % (42.0-52.0); Imm Gran Abs Auto 0.02 X10*3/uL (0.00-0.03); Imm Gran Pct Auto 0.4 % (0.0-0.4); Lymphocytes Absolute Auto 0.9 X10*3/uL (1.2-4.9); Lymphocytes Percent Auto 17.9 % (20-40); Mean Corpuscular Hemoglobin 32.4 pg (27.0-33.0); Mean Corpuscular Volume 92.4 fL (80.0-98.0); Mean Platelet Volume 9.8 fL (9.4-12.4); Monocytes Absolute Auto 0.4 X10*3/uL (0.1-1.2); Monocytes Percent Auto 6.8 % (2-11); Neutrophils Absolute Auto 3.7 x10*3/uL (2.0-8.3); Neutrophils Percent Auto 71.4 % (45-73); Platelet Count 216 X10*3/uL (160-400); Red Blood Count 4.63 X10*6/uL (4.60-5.80); Red Cell Distribution Width 13.1 % (11.0-16.0); White Blood Count 5.1 X10*3/uL (4.8-10.8)
[2024-01-22 16:26] LABS: Anion Gap 13 (12-20); Blood Urea Nitrogen 16 mg/dL (9-16); Calcium 8.8 mg/dL (8.4-10.2); Carbon Dioxide 24 mmol/L (22-29); Chloride 108 mmol/L (96-108); Estimated Glomerular Filt Rate > 60; Glucose Random 116 mg/dL (60-115); Potassium 3.7 mmol/L (3.3-5.1); Sodium 141 mmol/L (135-145)
== END 2024-01-22 13:14 | disposition home or self-care (01) ==
LOC: HO.HMGCLDS 13:13
PROVIDERS: PCP Nurse Practitioner Family; Visit Provider Internal Medicine
DX: Z01.812 Encounter for preprocedural laboratory examination (principal)
CPT/HCPCS: 36415; 80048; 85025

== ENCOUNTER 2024-02-14 10:02 | Outpatient (AMB) | payer MEDICARE, BC, SELFPAY ==
--- NOTE | 2024-02-14 10:04 | A.OFFVIS_ITS ---
Intake Vital Signs 02/14/24 10:07 Height 6 ft 1 in Weight 286 lb 9.615 oz BMI 37.8 BP 124/68 Blood Pressure Location Lt brachial Position Sitting Pulse 83 Intake Visit Reasons: follow up ablation Intake Note: follow up w/ EKG Document Preparation Specialist Required: No Accompanied by: Self / Same As Patient Allergies No Known Allergies [No Known Allergies*] Allergy (Verified 02/14/24 10:07) Medication List - Last Reconciled 02/14/24 by Lowell Best MD amiodarone 200 mg PO DAILY amlodipine 2.5 mg PO DAILY apixaban 5 mg PO BID 90 days betamethasone dipropionate 0.05% 1 appl topical DAILY PRN paroxetine HCl 20 mg PO QAM tamsulosin 0.4 mg PO DAILY 90 days tolterodine ER 4 mg PO DAILY 90 days HPI HPI Comments History of Present Illness Details Tyree returns for follow-up regarding paroxysmal atrial fibrillation. To recall, in 2016, he was admitted with atrial fibrillation and rapid rate and underwent ANUP/cardioversion. He was doing well on Multaq till recently when he went back into atrial fibrillation. Then had another cardioversion. Subsequently, put on amiodarone. Then refer to EP and he underwent ablation recently. Overall, feels good. No new complaints. [facility] Medical History Essential hypertension Incomplete emptying of bladder Morbid obesity EVON on CPAP Paroxysmal atrial fibrillation Weak urinary stream Surgical History History of tonsillectomy Family History Father Heart attack Prostate cancer Mother Heart disease Son Substance use disorder Daughter Substance use disorder Sister Mental health disorder Social History Housing: House Are you a primary healthcare associate to a significant other at home: No Do you presently have visiting nurse or other home services: No Alcohol intake: never Patient Tobacco Use Status: Former Tobacco user Quit Date: 1983 Smoked: 10 +/- e-Cigarette/Vaping Use: Never Used Second Hand Smoke Exposure: No Advance Directives Date on File: 01/22/16 service: Yes Current occupational status: retired Cognitive needs: No Hearing needs: No Vision needs: No Review of Systems Const Denies weakness ENT Denies dizziness Card Denies chest pain, Denies chest pain with activity, Denies syncope, Denies rapid heart rate, Denies pedal edema, Denies edema, Denies leg edema, Denies lightheadedness, Denies palpitations, Denies dyspnea, Denies dyspnea on exertion and Denies orthopnea Resp Denies cough, Denies dyspnea and Denies dyspnea on exertion GI Denies hematochezia and Denies change in stool character Musc Denies abnormal gait, Denies muscle cramps, Denies muscle weakness, Denies numbness, Denies radiating pain into limb and Denies tingling Neuro Denies abnormal gait, Denies dizziness, Denies syncope, Denies numbness, Denies tingling and Denies weakness Endo Denies palpitations Physical Exam Vital Signs: Last Vital Signs Pulse 83 02/14/24 10:07 BP 124/68 02/14/24 10:07 BMI result Body Mass Index 37.8 Const General: comfortable and no acute distress Orientation/consciousness: patient oriented x3 HEENT Other: Unremarkable Head: Yes normal to inspection Neck Neck: Yes normal visual inspection Chest Chest palpation & inspection: normal inspection of the chest Resp Auscultation: clear to auscultation bilaterally Cardio Palpation: normal PMI Heart sounds: S1 normal heart sound present, S2 normal heart sound present, no gallops, no murmurs and no rubs GI Palpation (GI): Soft to palpation Back/Spine/Pelvis Other: unremarkable Skin General skin exam: no rashes or lesions noted Neuro General: patient oriented x3 Extrem General: Yes normal to inspection Psych Mental Status: mental status grossly normal Office Procedures EKG Details: EKG with sinus rhythm at 83/Min; right bundle-branch block pattern. [id number], Complete Assessment & Plan Assessment & Plan (1) Paroxysmal atrial fibrillation: Code(s): I48.0 - Paroxysmal atrial fibrillation Plan: Has been stable on Multaq for many years recently. Status post recent cardioversion followed by atrial fibrillation ablation. He has an EP appointment coming up in a few weeks' time. After that, probably stop the amiodarone and may be just use some beta-blockers. Continue with anticoagulation. Last stress test -2015 -showed likely normal perfusion with diaphragmatic attenuation of the inferior wall on gated LVEF of 72%. Last echocardiogram - 2020 - showed normal LVEF, 60-65% and mild LVH/mild diastolic dysfunction but otherwise unremarkable. (2) Essential hypertension: Code(s): I10 - Essential (primary) hypertension Plan: On amlodipine. Stable. (3) EVON on CPAP: Code(s): G47.33 - Obstructive sleep apnea (adult) (pediatric); Z99.89 - Dependence on other enabling machines and devices Plan: CPAP. (4) Morbid obesity: Code(s): E66.01 - Morbid (severe) obesity due to excess calories Plan: Weight has been like this for very long time. Unlikely it is going to change. Coding Level of Care Code Est Pt Level 4 (33894) Diagnoses Paroxysmal atrial fibrillation I48.0 Essential hypertension I10 EVON on CPAP G47.33; Z99.89 Morbid obesity E66.01 CPT Codes EKG - CPT: 20590-[id number], Complete ([id number])
[2024-02-14 10:07] VITALS: BP 124/68; PULSE 83; BMI 37.8
== END 2024-02-14 10:21 | disposition home or self-care (01) ==
PROVIDERS: PCP Nurse Practitioner Family; Visit Provider Internal Medicine
DX: I48.0 Paroxysmal atrial fibrillation (principal); I10 Essential (primary) hypertension; G47.33 Obstructive sleep apnea (adult) (pediatric); Z99.89 Dependence on other enabling machines and devices; E66.01 Morbid (severe) obesity due to excess calories
CPT/HCPCS: 93010; 99214

== ENCOUNTER → 2024-02-14 10:02 | Outpatient (BNVA) | payer MEDICARE, BC, SELFPAY | PROVIDERS: PCP Nurse Practitioner Family; Visit Provider Internal Medicine | DX: I48.0 Paroxysmal atrial fibrillation (principal); I10 Essential (primary) hypertension; G47.33 Obstructive sleep apnea (adult) (pediatric); E66.01 Morbid (severe) obesity due to excess calories; Z99.89 Dependence on other enabling machines and devices; Z68.37 Body mass index [BMI] 37.0-37.9, adult | CPT/HCPCS: 93005; 99212 ==

== ENCOUNTER 2024-03-11 10:52 | Outpatient (REF) | payer MEDICARE, BC, SELFPAY ==
[2024-03-11 13:23] LABS: Appearance Urine Clear; Color Urine Yellow; Glucose Urine UA Negative (Negative); Leukocyte Esterase Urine Negative (Negative); Nitrite Urine Negative (Negative); Urine Blood Negative (Negative); Urine Ketones Negative (Negative); Urine Protein Negative (Neg-Trace)
[2024-03-11 13:36] LABS: MANUAL DIFF FLAG NO
[2024-03-11 13:56] LABS: Basophils Percent Auto 0.9 % (0-2); Eosinophils Absolute Auto 0.1 X10*3/uL (0.0-0.4); Hematocrit 43.9 % (42.0-52.0); Hemoglobin 14.9 g/dl (14.0-18.0); Imm Gran Abs Auto 0.03 X10*3/uL (0.00-0.03); Imm Gran Pct Auto 0.7 % (0.0-0.4); Lymphocytes Absolute Auto 0.8 X10*3/uL (1.2-4.9); Lymphocytes Percent Auto 17.8 % (20-40); Mean Corpuscular HGB Conc 33.9 g/dl (31.0-36.0); Mean Corpuscular Volume 94.2 fL (80.0-98.0); Mean Platelet Volume 9.5 fL (9.4-12.4); Monocytes Absolute Auto 0.3 X10*3/uL (0.1-1.2); Monocytes Percent Auto 7.4 % (2-11); Neutrophils Percent Auto 70.2 % (45-73); Platelet Count 190 X10*3/uL (160-400); Red Blood Count 4.66 X10*6/uL (4.60-5.80); Red Cell Distribution Width 12.7 % (11.0-16.0); White Blood Count 4.3 X10*3/uL (4.8-10.8)
[2024-03-11 14:10] LABS: Alanine Aminotransferase 15 U/L (0-40); Albumin Level 4.2 g/dL (3.5-5.0); Alkaline Phosphatase 65 U/L (39-117); Anion Gap 10 (12-20); Aspartate Amino Transferase 15 U/L (5-37); Bilirubin Total 0.6 mg/dL (0.0-1.0); Blood Urea Nitrogen 14 mg/dL (9-16); Calcium 9.1 mg/dL (8.4-10.2); Carbon Dioxide 27 mmol/L (22-29); Chloride 107 mmol/L (96-108); Estimated Glomerular Filt Rate > 60; Glucose Random 91 mg/dL (60-115); Potassium 3.9 mmol/L (3.3-5.1); Sodium 140 mmol/L (135-145)
[2024-03-11 14:26] LABS: TSH reflex Free T4 2.65 uIU/mL (0.32-4.0)
[2024-03-12 12:43] LABS: Thyroid Peroxidase Antibodies <1 IU/mL (<9)
== END 2024-03-11 10:53 | disposition home or self-care (01) ==
LOC: HO.HMGCLDS 10:52
PROVIDERS: PCP Nurse Practitioner Family; Visit Provider Nurse Practitioner Family
DX: I10 Essential (primary) hypertension (principal); R79.89 Other specified abnormal findings of blood chemistry
CPT/HCPCS: 36415; 80053; 81003; 84443; 85025; 86376

== ENCOUNTER 2024-04-01 09:49 | Outpatient (AMB) | payer MEDICARE, BC, SELFPAY ==
--- NOTE | 2024-04-01 10:22 | AM.OFFVISNUR ---
Intake Intake Visit Reasons: Hep B #3 Allergies No Known Allergies [No Known Allergies*] Allergy (Verified 02/14/24 10:07) Coding
== END 2024-04-01 10:39 | disposition home or self-care (01) ==
PROVIDERS: PCP Nurse Practitioner Family; Visit Provider Nurse Practitioner Family
DX: Z23 Encounter for immunization (principal)
CPT/HCPCS: 90471; 90746

== ENCOUNTER 2024-05-15 10:20 | Outpatient (AMB) | payer MEDICARE, BC, SELFPAY ==
--- NOTE | 2024-05-15 10:25 | A.OFFVIS_ITS ---
Vital Signs 05/15/24 10:26 Height 6 ft 1 in Weight 279 lb 15.793 oz BMI 36.9 BP 130/78 Blood Pressure Location Lt brachial Position Sitting Pulse 68 Pulse Source Monitor Intake Visit Reasons: 3 mth f/up Allergies No Known Allergies [No Known Allergies*] Allergy (Verified 02/14/24 10:07) Medication List - Last Reconciled 05/15/24 by Lowell Best MD amlodipine 2.5 mg PO DAILY apixaban (Eliquis) 5 mg PO BID betamethasone dipropionate 0.05% 1 appl topical DAILY PRN HPI Comments Details: Tyree returns for follow-up regarding paroxysmal atrial fibrillation. To recall, in 2016, he was admitted with atrial fibrillation and rapid rate and underwent ANUP/cardioversion. He was doing well on Multaq till recently when he went back into atrial fibrillation. Then had another cardioversion. Subsequently, put on amiodarone. Then referred to EP and he underwent ablation recently. During EP follow-up, he was taken off amiodarone. Overall, he is doing very good. No specific complaints. [facility] Medical History Essential hypertension Incomplete emptying of bladder Morbid obesity EVON on CPAP Paroxysmal atrial fibrillation Weak urinary stream Surgical History History of tonsillectomy Family History Father Heart attack Prostate cancer Mother Heart disease Son Substance use disorder Daughter Substance use disorder Sister Mental health disorder Social History Housing: House Are you a primary career based intervention coordinator to a significant other at home: No Do you presently have visiting nurse or other home services: No Alcohol intake: never Patient Tobacco Use Status: Former Tobacco user Years Smoked: 10 +/- e-Cigarette/Vaping Use: Never Used Second Hand Smoke Exposure: No Advance Directives Date on File: 01/22/16 service: Yes Current occupational status: retired Cognitive needs: No Hearing needs: No Vision needs: No Review of Systems Const Denies weakness ENT Denies dizziness Card Denies chest pain, Denies chest pain with activity, Denies syncope, Denies rapid heart rate, Denies pedal edema, Denies edema, Denies leg edema, Denies lightheadedness, Denies palpitations, Denies dyspnea, Denies dyspnea on exertion and Denies orthopnea Resp Denies cough, Denies dyspnea and Denies dyspnea on exertion GI Denies hematochezia and Denies change in stool character Musc Denies abnormal gait, Denies muscle cramps, Denies muscle weakness, Denies numbness, Denies radiating pain into limb and Denies tingling Neuro Denies abnormal gait, Denies dizziness, Denies syncope, Denies numbness, Denies tingling and Denies weakness Endo Denies palpitations Physical Exam Vital Signs: Last Vital Signs Pulse 68 05/15/24 10:26 BP 130/78 05/15/24 10:26 BMI result Body Mass Index 36.9 Const General: comfortable and no acute distress Orientation/consciousness: patient oriented x3 HEENT Other: Unremarkable Head: Yes normal to inspection Neck Neck: Yes normal visual inspection Chest Chest palpation & inspection: normal inspection of the chest Resp Auscultation: clear to auscultation bilaterally Cardio Palpation: normal PMI Heart sounds: S1 normal heart sound present, S2 normal heart sound present, no gallops, no murmurs and no rubs GI Palpation (GI): Soft to palpation Back/Spine/Pelvis Other: unremarkable Skin General skin exam: no rashes or lesions noted Neuro General: patient oriented x3 Extrem General: Yes normal to inspection Psych Mental Status: mental status grossly normal Office Procedures EKG Details: EKG with sinus rhythm at 68/Min; right bundle-branch block pattern but otherwise unremarkable. [place]. [id number], Complete Assessment & Plan Assessment & Plan (1) Paroxysmal atrial fibrillation: Code(s): I48.0 - Paroxysmal atrial fibrillation Category: Medical Plan: Status post atrial fibrillation ablation. Off amiodarone. Can keep on a small dose of beta-dayo. Continue anticoagulation. Holter before next visit. Last stress test -2015 -showed likely normal perfusion with diaphragmatic attenuation of the inferior wall on gated LVEF of 72%. Last echocardiogram - 2019 - showed normal LVEF, 60-65% and mild LVH/mild diastolic dysfunction but otherwise unremarkable. (2) Essential hypertension: Code(s): I10 - Essential (primary) hypertension Category: Medical Plan: On amlodipine. Stable. (3) EVON on CPAP: Code(s): G47.33 - Obstructive sleep apnea (adult) (pediatric); Z99.89 - Dependence on other enabling machines and devices Category: Medical Plan: CPAP. (4) Morbid obesity: Code(s): E66.01 - Morbid (severe) obesity due to excess calories Category: Medical Plan: Weight is somewhat lower than before. Hopefully, he can keep it that way. Orders: Orders ECG 3 day holter monitor 6 Months I48.0 - Paroxysmal atrial fibrillation Medications: New metoprolol succinate ER (Toprol XL) 25 mg PO DAILY 90 tabs 3RF Coding Level of Care Code Est Pt Level 4 (31121) Diagnoses Paroxysmal atrial fibrillation I48.0 Essential hypertension I10 EVON on CPAP G47.33; Z99.89 Morbid obesity E66.01 CPT Codes EKG - CPT: 17034-[id number], Complete ([id number])
[2024-05-15 10:26] VITALS: BP 130/78; PULSE 68; BMI 36.9
== END 2024-05-15 13:01 | disposition home or self-care (01) ==
PROVIDERS: PCP Nurse Practitioner Family; Visit Provider Internal Medicine
DX: I48.0 Paroxysmal atrial fibrillation (principal); I10 Essential (primary) hypertension; G47.33 Obstructive sleep apnea (adult) (pediatric); Z99.89 Dependence on other enabling machines and devices; E66.01 Morbid (severe) obesity due to excess calories
CPT/HCPCS: 93010; 99214

== ENCOUNTER → 2024-05-15 10:20 | Outpatient (BNVA) | payer MEDICARE, BC, SELFPAY | PROVIDERS: PCP Nurse Practitioner Family; Visit Provider Internal Medicine | DX: I48.0 Paroxysmal atrial fibrillation (principal); I45.10 Unspecified right bundle-branch block; I10 Essential (primary) hypertension; G47.33 Obstructive sleep apnea (adult) (pediatric); E66.01 Morbid (severe) obesity due to excess calories; Z68.36 Body mass index [BMI] 36.0-36.9, adult; Z99.89 Dependence on other enabling machines and devices | CPT/HCPCS: 93005; 99212 ==

== ENCOUNTER 2024-06-03 09:19 | Outpatient (AMB) | payer MEDICARE, BC, SELFPAY ==
--- NOTE | 2024-06-03 09:23 | MHC.PC.OV ---
Vital Signs 06/03/24 09:26 Height 6 ft 1 in Weight 283 lb BMI 37.3 BP 130/88 Blood Pressure Location Rt brachial Position Sitting Pulse 69 Pulse Source Pulse Oximeter Pulse Oximetry (%) 96 Oxygen Delivery Method Room Air Intake Visit Reasons: 6 month fu Intake Note: Patient here to discuss going back on paxil and bilat hip pain. Allergies No Known Allergies [No Known Allergies*] Allergy (Verified 06/03/24 11:02) Medication List - Last Reconciled 06/03/24 by PATTI Arcos amlodipine 2.5 mg PO DAILY apixaban (Eliquis) 5 mg PO BID betamethasone dipropionate 0.05% 1 appl topical DAILY PRN metoprolol succinate ER (Toprol XL) 25 mg PO DAILY paroxetine HCl 20 mg PO DAILY Tobacco use date assessed: 11/28/23 Fall risk assessment: 2 + Falls in past year Last assessed Fall Risk: 06/03/24 Dental Screening Dental Screen Date: 11/28/23 HPI 6 month fu HPI Details pt was on paxil, no longer. Pt would like to restart this med, noticed he is less snappy with people while on it. Will restart. #2 Pt fell around 3 weeks ago, landing on his left hip. He reports since this fall he has had pain to his left hip. Pt denies any popping or clicking of hip. Denies difficulty with ambulation, SOB, CP, LOC. He further reports right hip pain, fell back last september. Denies any popping or clicking.B12 def: pt was taking 2000mcg of b12 Q2 months. reports not doing this in quite sometime,, will recheck levels. [facility] Medical History Morbid obesity Weak urinary stream Incomplete emptying of bladder Essential hypertension EVON on CPAP Paroxysmal atrial fibrillation Surgical History History of tonsillectomy Family History Father Heart attack Prostate cancer Mother Heart disease Son Substance use disorder Daughter Substance use disorder Sister Mental health disorder Social History Housing: House Are you a primary home health caregiver to a significant other at home: No Do you presently have visiting nurse or other home services: No Alcohol intake: never Patient Tobacco Use Status: Former Tobacco user Years Smoked: 10 +/- e-Cigarette/Vaping Use: Never Used Second Hand Smoke Exposure: No Advance Directives Date on File: 01/22/16 service: Yes Current occupational status: retired Cognitive needs: No Hearing needs: No Vision needs: No Questionnaire PHQ-9 Over the last 2 weeks, how often have you been bothered by any of the following problems? 1. Little interest or pleasure in doing things: several days 2. Feeling down, depressed, or hopeless: not at all 3. Trouble falling or staying asleep, or sleeping too much: more than half the days 4. Feeling tired or having little energy: more than half the days 5. Poor appetite or overeating: not at all 6. Feeling bad about yourself - or that you are a failure or have let yourself or your family down: not at all 7. Trouble concentrating on things, such as reading the newspaper or watching television: not at all 8. Moving or speaking so slowly that other people could have noticed. Or the opposite - being so fidgety or restless that you have been moving around a lot more than usual: not at all 9. Thoughts that you would be better off or of hurting yourself in some way: not at all Total score: 5 Depression Screening Interpretation: Negative Depression Screening Done: Yes 43920 - PHQ-9 Billing: Yes Source: Developed by Drs. Huang Wing, Milly Bernard, Sridhar Hoffman and colleagues, with an educational bryanna from [employer]. Thrive Questionnaire Date Thrive assessed: 11/28/23 I am a: Patient What is your living situation today?: I have a steady place to live Within the past 12 months, did the food you bought not last and you didn't have the money to get more?: Never true Within the past 12 months, did you worry whether your food would run out before you got money to buy more?: Never true Do you have trouble paying for medicines?: No Do you have trouble getting transportation to medical appointments?: No Do you have trouble paying your heating and electricity bill?: No Do you have trouble taking care of your child, family member or friend?: No Do you have trouble with day-to-day activities such as bathing, preparing meals, shopping, managing finances, etc.?: No Are you currently unemployed and looking for a job?: No Are you interested in more education?: No Please select the resources that you would like help with: Housing/Half-Way Currently or been in a relationship where the following occur: No concerns reported THRIVE Score: 0 AUDIT C Alcohol Use Questionnaire (AUDIT-C) 1. How often do you have a drink containing alcohol?: Never Total Score: 0 Score Reviewed/Action Taken: No YESSENIA-7 AMB Questionnaire YESSENIA-7 Date YESSENIA - 7 assessed: 11/28/23 Feeling nervous, anxious, or on edge: 3 = Nearly every day Not being able to stop or control worryin = More than half the days Worrying too much about different things: 1 = Several days Trouble relaxin = Several days Being so restless that it is hard to sit still: 0 = Not at all Becoming easily annoyed or irritable: 1 = Several days Feeling afraid as if something awful might happen: 0 = Not at all Total YESSENIA-7 score (0-4 normal; 5-9 mild; 10-14 moderate; 15-21 severe): 8 Source: Developed by Drs. Huang Wing, Milly Bernard, Sridhar Hoffman and colleagues, with an educational bryanna from [employer]. YESSENIA-7 Assessment Billing YESSENIA-7 Assessment Tool: YESSENIA-7 Assessment 62779 Physical exam (Primary Care) Vital Signs: Last Vital Signs Pulse 69 06/03/24 09:26 BP 130/88 06/03/24 09:26 Pulse Ox 96 06/03/24 09:26 Oxygen Delivery Method Room Air 06/03/24 09:26 BMI result Body Mass Index 37.3 Tobacco/Smoking Status: Tobacco use Status Tobacco use date assessed 11/28/23 06/03/24 09:24 Patient Tobacco Use Status Former Tobacco user 06/03/24 09:24 e-Cigarette/Vaping Use Never Used 06/03/24 09:24 PHQ-9: PHQ-9 Score PHQ-9: Total score 5 07/15/24 10:02 Depression Screening Interpretation: Negative Thrive Assessment: Date of Thrive Assessment Date Thrive assessed 11/28/23 06/03/24 09:24 Currently or been in a relationship where the following occur: No concerns reported Resp Effort & Inspection: normal respiratory effort Auscultation: clear to auscultation bilaterally Cardio Rate: regular rate Rhythm: regular rhythm Heart sounds: S1 normal heart sound present, S2 normal heart sound present and no murmurs Extrem Other: with pt in supine posiiton, able to left LLE and knee to chest raises without pain. No popping or clicking with ROM while in the room. + skyla's test. Same noted to right side. No pain bilat with actual palpation. Trace edema to BLE, varicose veins noted to LLE. Psych Appearance: grossly normal Mental Status: mental status grossly normal Speech and movement: Normal speech and movement present Attitude: cooperative Thought process: Normal thought process present Thought content: Normal thought content present Insight: Good insight present (Psych) Judgement: Good judgement present (Psych) Assessment and Plan Assessment & Plan (1) Left hip pain: Code(s): M25.552 - Pain in left hip (2) Low vitamin B12 level: Code(s): E53.8 - Deficiency of other specified B group vitamins Plan: xr ordered (3) B12 deficiency: Code(s): E53.8 - Deficiency of other specified B group vitamins Plan: recheck levels (4) Right hip pain: Code(s): M25.551 - Pain in right hip Plan: xr ordered (5) Depression: Code(s): F32.A - Depression, unspecified Plan: paroxetine started for depression/mood changes. worked well previously Orders: Orders Complete Blood Count Auto Diff Today E53.8 - Deficiency of other specified B group vitamins, M25.552 - Pain in left hip Comprehensive [place]. Panel Fast Today E53.8 - Deficiency of other specified B group vitamins, M25.552 - Pain in left hip Lipid Panel Today E53.8 - Deficiency of other specified B group vitamins, M25.552 - Pain in left hip Parietal Cell Antibody Today E53.8 - Deficiency of other specified B group vitamins XR hip LT min 2V Today M25.552 - Pain in left hip TSH reflex Free T4 Today E53.8 - Deficiency of other specified B group vitamins, M25.552 - Pain in left hip UA CC w/rflx Micro + Cult Today E53.8 - Deficiency of other specified B group vitamins, M25.552 - Pain in left hip Vitamin B12 and Folate Today E53.8 - Deficiency of other specified B group vitamins XR hip RT min 2V Today M25.551 - Pain in right hip Intrinsic Factor Antibodies Today E53.8 - Deficiency of other specified B group vitamins Medications: New paroxetine HCl 20 mg PO DAILY 90 tabs 0RF Coding Level of Care Code Est Pt Level 3 (33160) Diagnoses Left hip pain M25.552 Low vitamin B12 level E53.8 B12 deficiency E53.8 Right hip pain M25.551 Depression F32.A Additional Codes YESSENIA-7 Assessment Billing - YESSENIA-7 Assessment Tool: YESSENIA-7 Assessment [id number] ([id number])
[2024-06-03 09:26] VITALS: BP 130/88; PULSE 69; O2SAT 96; BMI 37.3
== END 2024-06-03 10:05 | disposition home or self-care (01) ==
PROVIDERS: PCP Nurse Practitioner Family; Visit Provider Nurse Practitioner Family
DX: M25.552 Pain in left hip (principal); E53.8 Deficiency of other specified B group vitamins; M25.551 Pain in right hip; F32.A Depression, unspecified
CPT/HCPCS: 99213

== ENCOUNTER 2024-06-03 10:09 | Outpatient (REF) | payer MEDICARE, BC, SELFPAY ==
--- NOTE | ~2024-06-03 | XR_ITS ---
EXAMINATION: XR BILATERAL HIPS CLINICAL INFORMATION: Bilateral hip pain. COMPARISON: CT abdomen and pelvis 02/04/2014 (report only). TECHNIQUE: 2 views each hip. FINDINGS: Degenerative changes are present at both hip joints, left greater than right with some joint space narrowing which is greater on the left along with some sclerosis and osteophytes. On the right, there is a curvilinear calcification seen overlying the region of the greater trochanter which could be related to chronic greater trochanteric bursitis. Degenerative changes are also seen at the pubic symphysis and visualized portions of the SI joints. Surgical clips are present overlying the scrotal sac. XR/XR hip LT min 2V IMPRESSION: 1. Degenerative changes in both hips, left greater than right. 2. Calcifications overlying the right greater trochanter could be related to chronic greater trochanteric bursitis.
--- NOTE | ~2024-06-03 | XR_ITS ---
EXAMINATION: XR BILATERAL HIPS CLINICAL INFORMATION: Bilateral hip pain. COMPARISON: CT abdomen and pelvis 02/04/2014 (report only). TECHNIQUE: 2 views each hip. FINDINGS: Degenerative changes are present at both hip joints, left greater than right with some joint space narrowing which is greater on the left along with some sclerosis and osteophytes. On the right, there is a curvilinear calcification seen overlying the region of the greater trochanter which could be related to chronic greater trochanteric bursitis. Degenerative changes are also seen at the pubic symphysis and visualized portions of the SI joints. Surgical clips are present overlying the scrotal sac. XR/XR hip RT min 2V IMPRESSION: 1. Degenerative changes in both hips, left greater than right. 2. Calcifications overlying the right greater trochanter could be related to chronic greater trochanteric bursitis.
== END 2024-06-03 10:10 | disposition home or self-care (01) ==
LOC: HO.HMGCX 10:09
PROVIDERS: PCP Nurse Practitioner Family; Visit Provider Nurse Practitioner Family
DX: M25.552 Pain in left hip (principal); M25.551 Pain in right hip
CPT/HCPCS: 73502

== ENCOUNTER 2024-06-06 08:50 | Outpatient (REF) | payer MEDICARE, BC, SELFPAY ==
[2024-06-06 10:10] LABS: MANUAL DIFF FLAG NO
[2024-06-06 10:14] LABS: Basophils Percent Auto 0.6 % (0-2); Eosinophils Absolute Auto 0.1 X10*3/uL (0.0-0.4); Eosinophils Percent Auto 2.3 % (0-4); Hematocrit 43.7 % (42.0-52.0); Hemoglobin 15.2 g/dl (14.0-18.0); Imm Gran Abs Auto 0.03 X10*3/uL (0.00-0.03); Imm Gran Pct Auto 0.6 % (0.0-0.4); Lymphocytes Absolute Auto 0.8 X10*3/uL (1.2-4.9); Lymphocytes Percent Auto 16.4 % (20-40); Mean Corpuscular HGB Conc 34.8 g/dl (31.0-36.0); Mean Corpuscular Hemoglobin 32.1 pg (27.0-33.0); Mean Corpuscular Volume 92.4 fL (80.0-98.0); Mean Platelet Volume 9.5 fL (9.4-12.4); Monocytes Absolute Auto 0.3 X10*3/uL (0.1-1.2); Neutrophils Absolute Auto 3.8 x10*3/uL (2.0-8.3); Neutrophils Percent Auto 74.1 % (45-73); Platelet Count 197 X10*3/uL (160-400); Red Blood Count 4.73 X10*6/uL (4.60-5.80); Red Cell Distribution Width 12.8 % (11.0-16.0); White Blood Count 5.1 X10*3/uL (4.8-10.8)
[2024-06-06 10:32] LABS: Appearance Urine Clear; Color Urine Yellow; Glucose Urine UA Negative (Negative); Leukocyte Esterase Urine Negative (Negative); Nitrite Urine Negative (Negative); Urine Blood Negative (Negative); Urine Ketones Negative (Negative); Urine Protein Trace mg/dL (Neg-Trace)
[2024-06-06 10:51] LABS: Alanine Aminotransferase 13 U/L (0-40); Alkaline Phosphatase 62 U/L (39-117); Anion Gap 13 (12-20); Aspartate Amino Transferase 13 U/L (5-37); Bilirubin Total 0.8 mg/dL (0.0-1.0); Blood Urea Nitrogen 11 mg/dL (9-16); Calcium 9.2 mg/dL (8.4-10.2); Carbon Dioxide 24 mmol/L (22-29); Chloride 107 mmol/L (96-108); Cholesterol 156 mg/dL (<200); Estimated Glomerular Filt Rate > 60; Glucose Fasting 101 mg/dL (60-99); HDL Cholesterol 37 mg/dL (>40); LDL Cholesterol Calculated 107 mg/dL (<100); Potassium 4.2 mmol/L (3.3-5.1); Sodium 140 mmol/L (135-145); Total Protein 6.6 g/dL (6.5-8.0); Triglycerides 62 mg/dL (<150)
[2024-06-06 10:54] LABS: TSH reflex Free T4 2.64 uIU/mL (0.32-4.0)
[2024-06-06 11:20] LABS: Folate 6.2 ng/mL (> or = 4.0); Vitamin B12 190 pg/mL (200-900)
[2024-06-11 15:33] LABS: Intrinsic Factor Antibodies Negative (Negative)
[2024-06-12 14:29] LABS: Parietal Cell Antibody <=20.0 Unit (<=20.0)
== END 2024-06-06 08:51 | disposition home or self-care (01) ==
LOC: HO.HMGCLDS 08:50
PROVIDERS: PCP Nurse Practitioner Family; Visit Provider Nurse Practitioner Family
DX: M25.552 Pain in left hip (principal); E53.8 Deficiency of other specified B group vitamins
CPT/HCPCS: 36415; 80053; 80061; 81003; 82607; 82746; 83516; 84443; 85025; 86340

== ENCOUNTER 2024-07-11 12:40 | Outpatient (AMB) | payer MEDICARE, BC, SELFPAY ==
--- NOTE | 2024-07-11 12:42 | MHC.OFFVIS ---
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 Patient reports that he took a fall to the left hip around the end of April and has had increased pain increased ever since, pain is worse while sleeping. 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 Patient reports that he took a fall to the left hip around the end of May/early June and has had increased pain ever since. [facility] Medical History Morbid obesity Weak urinary stream Incomplete emptying of bladder Essential hypertension EVON on CPAP Paroxysmal atrial fibrillation Surgical History History of tonsillectomy Family History Father Heart attack Prostate cancer Mother Heart disease Son Substance use disorder Daughter Substance use disorder Sister Mental health disorder Social History Housing: House Are you a primary acute care nurse to a significant other at home: No Do you presently have visiting nurse or other home services: No Alcohol intake: never Patient Tobacco Use Status: Former Tobacco user Years Smoked: 10 +/- e-Cigarette/Vaping Use: Never Used Second Hand Smoke Exposure: No Advance Directives Date on File: 01/22/16 service: Yes Current occupational status: retired Cognitive needs: No Hearing needs: No Vision needs: No Physical Exam Vital Signs: BMI result Body Mass Index 37.3 Extrem Other: + impingement test bilaterally. Nl gait Results Reviewed Results Reviewed: I personally reviewed relevant radiographs. Mild bilateral hip OA Assessment & Plan Assessment & Plan (1) Bilateral hip joint arthritis: Code(s): M16.0 - Bilateral primary osteoarthritis of hip Category: Medical Plan: Mild radiographically but symptomatic. Discussed treatment options. PT ordered. May follow up if symptoms don't improve. (2) Morbid obesity: Code(s): E66.01 - Morbid (severe) obesity due to excess calories Category: Medical Plan: Has lost weight (3) Severe obstructive sleep apnea: Comment: AHI 65/hr with O2 cel[place] 74% Code(s): G47.33 - Obstructive sleep apnea (adult) (pediatric) Category: Medical Plan: Orders: Orders PT Evaluation and Treatment Today M16.0 - Bilateral primary osteoarthritis of hip Coding Level of Care Code New Pt Level 3 (55791) Global (09250) Diagnoses Bilateral hip joint arthritis M16.0 Morbid obesity E66.01 Severe obstructive sleep apnea G47.33
[2024-07-11 12:43] VITALS: BMI 37.3
== END 2024-07-11 13:30 | disposition home or self-care (01) ==
PROVIDERS: PCP Nurse Practitioner Family; Visit Provider Orthopaedic Surgery
DX: M16.0 Bilateral primary osteoarthritis of hip (principal); E66.01 Morbid (severe) obesity due to excess calories; G47.33 Obstructive sleep apnea (adult) (pediatric)
CPT/HCPCS: 99203; 99499

== ENCOUNTER → 2024-07-11 12:40 | Outpatient (BNVA) | payer MEDICARE, BC, SELFPAY | PROVIDERS: PCP Nurse Practitioner Family; Visit Provider Orthopaedic Surgery | DX: M16.0 Bilateral primary osteoarthritis of hip (principal); E66.01 Morbid (severe) obesity due to excess calories; G47.33 Obstructive sleep apnea (adult) (pediatric); Z68.37 Body mass index [BMI] 37.0-37.9, adult | CPT/HCPCS: 99202 ==

== ENCOUNTER 2024-07-17 10:45 | Outpatient (AMB) | payer MEDICARE, BC, SELFPAY ==
--- NOTE | 2024-07-17 10:48 | A.OFFVIS_ITS ---
Intake Visit Reasons: 6M Follow Up-PVR Intake Note: Patient is Present for Telephone Urology Med: None Antibiotic Allergy:None Blood Thinner:Eliquis Last PVR: 0mls Hospital Chief Executive Officer Required: No Accompanied by: Self / Same As Patient Allergies No Known Allergies [No Known Allergies*] Allergy (Verified 07/17/24 10:49) Medication List - Last Reconciled 07/17/24 by Farzad Ivan MD amlodipine 2.5 mg PO DAILY apixaban (Eliquis) 5 mg PO BID betamethasone dipropionate 0.05% 1 appl topical DAILY PRN mecobalamin (vitamin B12) 1,000 mcg sublingual DAILY metoprolol succinate ER (Toprol XL) 25 mg PO DAILY paroxetine HCl 20 mg PO DAILY terazosin 5 mg PO BEDTIME 30 days HPI Comments Details: Tyree GARCIA is a very pleasant male. He is a patient of Dr Woody. He is seen for the following urologic conditions. - BPH - urinary urgency Telemedicine Evaluation 15 min Consultation [employer] Mya Video attempted Nocturia x3 Persistent urge frequency but does note that he drinks too much coffee Continues with EVON mask and has been thirsty at night Terazosin 5mg with planned cystoscopy 6 month follow-up Lower Urinary Tract Symptoms: Current visit is for further evaluation of, lower urinary tract symptoms, predominate obstructive symptoms. Current treatment includes medication, alpha dayo - tamsulosin 0.4 mg with tolterodine Prostate Symptom Score 10/19 , Moderate (9-19), Bother 3. Symptoms include 10/19 , incomplete emptying, weak stream, nocturia (>2), and are progressing. PSA 09/06 0.2, 10/11 0.3, 01/13 0.2 - family history of prostate cancer with father Prostate volume 30-50gm. Treatment plan 6 month follow-up [facility] Medical History Morbid obesity Weak urinary stream Incomplete emptying of bladder Essential hypertension EVON on CPAP Paroxysmal atrial fibrillation Surgical History History of tonsillectomy Family History Father Heart attack Prostate cancer Mother Heart disease Son Substance use disorder Daughter Substance use disorder Sister Mental health disorder Social History Housing: House Are you a primary manager primary care to a significant other at home: No Do you presently have visiting nurse or other home services: No Alcohol intake: never Patient Tobacco Use Status: Former Tobacco user Years Smoked: 10 +/- e-Cigarette/Vaping Use: Never Used Second Hand Smoke Exposure: No Advance Directives Date on File: 01/22/16 service: Yes Current occupational status: retired Cognitive needs: No Hearing needs: No Vision needs: No Review of Systems Const All systems reviewed & are unremarkable except as noted in HPI and below Reports no additional complaints Resp Reports no additional complaints GI Reports no additional complaints Reports as per HPI Musc Reports no additional complaints Physical Exam Telemedicine evaluation Appropriate responses Regular breathing rate and rhythm HEENT Head: Yes normal to inspection Ears: hearing grossly normal bilaterally Eyes General: appearance normal, both eyes and all related structures Neck Neck: Yes normal visual inspection Chest Chest palpation & inspection: normal inspection of the chest Resp Effort & Inspection: normal respiratory effort and able to speak in complete sentences Telehealth Telehealth Location of provider rendering services: practice address Location of patient: address on file Patient Identification confirmed using: Name, : Yes Telehealth method: video Patient verbally consented to treatment: Yes Patient verbally consented to billing insurance company: Yes Patient informed of any privacy concerns related to visit: Yes Assessment & Plan Assessment & Plan (1) Urinary urgency: Code(s): R39.15 - Urgency of urination Category: Medical (2) Weak urinary stream: Code(s): R39.12 - Poor urinary stream Category: Medical (3) Incomplete emptying of bladder due to benign prostatic hyperplasia: Code(s): N40.1 - Benign prostatic hyperplasia with lower urinary tract symptoms; R33.9 - Retention of urine, unspecified Category: Medical Plan Cystoscopy 2 months Orders: Orders AMB Post Void Residual by ultrasound Today N40.1 - Benign prostatic hyperplasia with lower urinary tract symptoms, R33.9 - Retention of urine, unspecified Medications: New terazosin 5 mg PO BEDTIME 30 days 30 caps 1RF N40.1 - Benign prostatic hyperplasia with lower urinary tract symptoms, R35.0 - Frequency of micturition, R39.15 - Urgency of urination Patient Instructions: Imaging studies, laboratory and physical exam results were discussed and reviewed in detail. No major barriers to patient understanding were identified. An opportunity to ask questions regarding the treatment plan was provided. All questions were answered. The patient expressed understanding and agreement with the above treatment plan. The patient is aware they should contact our office by phone for worsening of their current condition or the appearance of new urologic symptoms. Compliance is encouraged with any medications and followup testing that is ordered. It is a privilege to participate in the urologic care of your patient. If you have any questions or concerns regarding treatment for the above conditions, or other urologic issues, please do not hesitate to contact me. The office telephone contact is [phone]. This note is constructed using voice recognition software. While every effort has been made to ensure accuracy rotating equipment engineer errors may have been included. Yours sincerely, Dr Farzad Ivan MD, [facility] - Urology Providers of Expert, Compassionate Care for the Genitourinary System Coding Level of Care Code Tele Est Pt Level 4 (57894) Diagnoses Urinary urgency R39.15 Weak urinary stream R39.12 Incomplete emptying of bladder due to benign prostatic hyperplasia N40.1; R33.9
== END 2024-07-17 15:01 | disposition home or self-care (01) ==
PROVIDERS: PCP Nurse Practitioner Family; Visit Provider Urology
DX: N40.1 Benign prostatic hyperplasia with lower urinary tract symptoms (principal); R39.15 Urgency of urination; R39.12 Poor urinary stream; R33.9 Retention of urine, unspecified
CPT/HCPCS: 99214

== ENCOUNTER → 2024-07-17 10:45 | Outpatient (BNVA) | payer BC, SELFPAY | PROVIDERS: PCP Nurse Practitioner Family; Visit Provider Urology ==

== ENCOUNTER 2024-09-12 10:00 | Outpatient (RCR) | payer MEDICARE, BC, SELFPAY ==
--- NOTE | 2024-08-09 10:41 | MHC.PT.EP ---
[facility] [place] Office [place] [facility] [place] Office [address] Case Torres [address] [phone] F: [phone] F: [phone] F: [phone] F: [phone] Physical Therapy Plan of Care Date of Evaluation: 08/09/24 Date of Surgery: Diagnosis: B primary OA of hip Assessment: 68 y/o male referred to PT with B primary OA of hips. Of note, hip pain started following fall onto R hip 09/2023 and then another fall onto L hip (fall from slippery boat ramp). Currently reports pain and difficulty with walking, sit to stands, donning/doffing shoes/socks. Examination shows decreased hip AROM, decreased hip strength, decreased muscle length HS/hip flexors, pain, and impaired gait pattern. Recommend PT 2x/week for 5 weeks to address impairments, implement HEP, and optimize functional mobility. Frequency and Duration: The patient will be seen 2x/week for 5 weeks Short Term Goals: 3 weeks I with HEP Long-Term Goals: 5 weeks I wtih HEP and self management of sx Pt will demonstrate symmetrical hip flexion to facilitate don/doffing shoes Improve LEFS to 50/80 (IR 38/80) Treatment Plan: Modalities to reduce pain, spasms and effusion. Manual therapy to restore motion and function. Therapeutic exercise to improve strength and flexibility. Neuromuscular re-education for posture and balance. Therapeutic activities to return to functional activities of daily living. Electronically signed by: Xin Weinberg PT Please sign and return to therapist. Thank you for your referral.
--- NOTE | 2024-09-30 14:16 | MHC.PT.DC ---
[facility] [place] Office [place] Office [place] Office [address] Case Torres [address] [phone] F: [phone] F: [phone] F: [phone] F: [phone] Physical Therapy Discharge Report Diagnosis: B primary OA of hip Date of Surgery: Date of Evaluation: 08/09/24 Date of Discharge: 09/30/24 Treatments to Date: 10 Cancellations to Date: 0 No Shows to Date: 0 Discharge Status: Achieved Goals Improved Function Independent with HEP Discharge Summary: Pt has met all goals and reports decreased pain overall and improved function. At this time, d/c to I HEP Electronically signed by: Xin Weinberg PT Please sign and return to therapist. Thank you for your referral.
== END 2024-09-30 14:16 | disposition home or self-care (01) ==
LOC: HO.PTCHIC 10:00
PROVIDERS: PCP Nurse Practitioner Family; Visit Provider Orthopaedic Surgery
DX: M16.0 Bilateral primary osteoarthritis of hip (principal)
CPT/HCPCS: 97110; 97162

== ENCOUNTER 2024-09-18 09:41 | Outpatient (AMB) | payer MEDICARE, BC, SELFPAY ==
--- NOTE | 2024-09-18 09:51 | MHC.OFFVIS ---
Intake Visit Reasons: cysto(Incomplete Emptying) Intake Note: Patient is present for Cystoscopy Urology Medication:TERAZOSIN, VITAMIN B12 Antibiotic Allergy:NONE Blood Thinner:ELIQUIS Lot:[id number] Exp:11/23/26 Sales Representative Uniforms Required: No Allergies No Known Allergies [No Known Allergies*] Allergy (Verified 09/18/24 09:53) HPI Comments Details: Tyree GARCIA is a very pleasant male. He is a patient of Dr Woody. He is seen for the following urologic conditions. - BPH - urinary urgency Here for cystoscopy Follow-up from trial of terazosin - not a great deal of benefit Open bladder neck Likely bladder instability Trial oxybutynin Nocturia x3 Persistent urge frequency but does note that he drinks too much coffee Continues with EVON mask and has been thirsty at night Lower Urinary Tract Symptoms: Current visit is for further evaluation of, lower urinary tract symptoms, predominate obstructive symptoms. Current treatment includes medication, alpha dayo - tamsulosin 0.4 mg with tolterodine Prostate Symptom Score 10/19 , Moderate (9-19), Bother 3. Symptoms include 10/ , incomplete emptying, weak stream, nocturia (>2), and are progressing. PSA 09/06 0.2, 10/11 0.3, 01/13 0.2 - family history of prostate cancer with father Prostate volume 30-50gm. Treatment plan 6 month follow-up [facility] Medical History Morbid obesity Weak urinary stream Incomplete emptying of bladder Essential hypertension EVON on CPAP Paroxysmal atrial fibrillation Surgical History History of tonsillectomy Family History Father Heart attack Prostate cancer Mother Heart disease Son Substance use disorder Daughter Substance use disorder Sister Mental health disorder Social History Housing: House Are you a primary adult caregiver to a significant other at home: No Do you presently have visiting nurse or other home services: No Alcohol intake: never Patient Tobacco Use Status: Former Tobacco user Years Smoked: 10 +/- e-Cigarette/Vaping Use: Never Used Second Hand Smoke Exposure: No Advance Directives Date on File: 01/22/16 service: Yes Current occupational status: retired Cognitive needs: No Hearing needs: No Vision needs: No Review of Systems Const Denies chills and Denies fever(s) Card Reports no additional complaints and Denies syncope Resp Denies cough GI Denies abdominal pain and Denies heartburn Reports as per HPI and Denies change in libido Neuro Denies syncope Psych Denies change in libido Endo Denies change in libido Physical Exam Const General: cooperative, healthy appearing, comfortable and no acute distress Orientation/consciousness: patient oriented x3 HEENT Face and sinus: Yes normal facial exam Mouth: moist mucous membranes Neck Neck: Yes normal visual inspection, Yes full ROM and Yes trachea midline Chest Chest palpation & inspection: normal inspection of the chest Resp Effort & Inspection: normal respiratory effort, able to speak in complete sentences and no respiratory distress GI Inspection: Yes normal to inspection Back/Spine/Pelvis Cervical Spine: normal cervical lordosis Thoracic/Lumbar Spine: thoracic and lumbar spine normal to inspection Skin General skin exam: no rashes or lesions noted Neuro General: patient oriented x3, gait normal, tone normal and moves all extremities Extrem General: Yes normal to inspection and Yes capillary refill normal Office Procedures Cystoscopy Consent Discussed risk and benefit or proposed procedure with the patient. Information consent for procedure given to the patient. Discussed technical aspects, risks, benefits and alternatives in full. Addressed all of the patient's questions and concerns regarding the procedure. The patient demonstrated knowledge and understanding. They wish to proceed with this procedure. Preparation The patient was prepped in the usual manner. A baked and graphite inspector was present and in the room. Genitalia was prepped with betadine solution in a sterile manner. Lidocaine Jelly 2% was placed into the urethra and 16Fr flexible Olympus cystoscope was inserted into the meatus after adequate lubrication. Procedure Cystoscopy performed using a disposable Urovue digital 16 Portuguese cystoscope. Meatus circumcised Urethra anterior and posterior urethra normal Prostatic Urethra open Bladder examination with retroflexion of cystoscope Bladder Orifices normal shape and position Bladder Capacity median Trabeculations grade 1/2 Cellule Formation no Diverticulum Formation no Mucosal [place] [id number] DISPOSABLE SCOPE URO-G FLEXIBLE SCOPE Procedure code (CPT) selection complete Office Meds lidocaine HCl 2 % mucosal jelly in applicator Performing Provider: Farzad Ivan MD Performing Location: [facility] Administered by: Matt Chavez LPN on 09/18/24 10:10 Dose Route Admin Location Dispensed Lot Number Expiration Date NDC Harvest Worker 10 mL intra-urethral 10 mL nitrofurantoin monohydrate/macrocrystals 100 mg capsule Performing Provider: Farzad Ivan MD Performing Location: [facility] Administered by: Matt Chavez LPN on 09/18/24 10:10 Dose Route Admin Location Dispensed Lot Number Expiration Date NDC Harvest Worker 100 mg PO 1 cap naproxen 500 mg tablet Performing Provider: Farzad Ivan MD Performing Location: [facility] Administered by: Matt Chavez LPN on 09/18/24 10:10 Dose Route Admin Location Dispensed Lot Number Expiration Date NDC Harvest Worker 500 mg PO 1 tab Results AMB Urinalysis, Automated UA Leukoctes 0 Adam/uL Last Edit by CHAVO Calderon on 09/18/24 10:29 UA Nitrite Last Edit by CHAVO Calderon on 09/18/24 10:29 UA Urobilinogen 0.2 mg/dL Last Edit by CHAVO Calderon on 09/18/24 10:29 UA Protein 0 mg/dL Last Edit by CHAVO Calderon on 09/18/24 10:29 UA pH 7.0 Last Edit by CHAVO Calderon on 09/18/24 10:29 UA Blood 0 Juan/uL Last Edit by CHAVO Calderon on 09/18/24 10:29 UA Specific [place] 1.010 Last Edit by CHAVO Calderon on 09/18/24 10:29 UA Ketone Negative Last Edit by CHAVO Calderon on 09/18/24 10:29 UA Bilirubin 0 mg/dL Last Edit by CHAVO Calderon on 09/18/24 10:29 UA Glucose 0 mg/dL Last Edit by CHAVO Calderon on 09/18/24 10:29 Assessment & Plan Assessment & Plan (1) Bladder instability: Code(s): N32.89 - Other specified disorders of bladder Category: Medical Plan Two month follow-up tele Orders: Orders AMB Urinalysis Automated Today Z13.9 - Encounter for screening, unspecified AMB Cystoscopy Today N40.0 - Benign prostatic hyperplasia without lower urinary tract symptoms, N40.1 - Benign prostatic hyperplasia with lower urinary tract symptoms, R32 - Unspecified urinary incontinence, R33.9 - Retention of urine, unspecified, R35.1 - Nocturia, R39.12 - Poor urinary stream, R39.15 - Urgency of urination Medications: New oxybutynin chloride ER 10 mg PO DAILY 30 days 30 tabs 1RF N32.81 - Overactive bladder, R39.15 - Urgency of urination Patient Instructions: Imaging studies, laboratory and physical exam results were discussed and reviewed in detail. No major barriers to patient understanding were identified. An opportunity to ask questions regarding the treatment plan was provided. All questions were answered. The patient expressed understanding and agreement with the above treatment plan. The patient is aware they should contact our office by phone for worsening of their current condition or the appearance of new urologic symptoms. Compliance is encouraged with any medications and followup testing that is ordered. It is a privilege to participate in the urologic care of your patient. If you have any questions or concerns regarding treatment for the above conditions, or other urologic issues, please do not hesitate to contact me. The office telephone contact is [phone]. This note is constructed using voice recognition software. While every effort has been made to ensure accuracy ladle liner helper errors may have been included. Yours sincerely, Dr Farzad Ivan MD, [facility] - Urology Providers of Expert, Compassionate Care for the Genitourinary System Coding Level of Care Code Est Pt Level 3 (68433) Diagnoses Bladder instability N32.89 CPT Codes Cystoscopy - CPT: 24758-Xcmkwwbilx ([id number])
== END 2024-09-18 10:38 | disposition home or self-care (01) ==
LOC: HO.HUSH 09:42
PROVIDERS: PCP Nurse Practitioner Family; Visit Provider Urology
DX: N40.1 Benign prostatic hyperplasia with lower urinary tract symptoms (principal); N32.89 Other specified disorders of bladder; R39.15 Urgency of urination; R32 Unspecified urinary incontinence; R39.12 Poor urinary stream; Z13.9 Encounter for screening, unspecified
CPT/HCPCS: 52000; 99213

== ENCOUNTER → 2024-09-18 09:41 | Outpatient (BNVA) | payer MEDICARE, BC, SELFPAY | PROVIDERS: PCP Nurse Practitioner Family; Visit Provider Urology | DX: N40.1 Benign prostatic hyperplasia with lower urinary tract symptoms (principal); R33.8 Other retention of urine; R39.15 Urgency of urination; N32.89 Other specified disorders of bladder; R32 Unspecified urinary incontinence; R35.1 Nocturia; R39.12 Poor urinary stream | CPT/HCPCS: 52000; 81003; 99212 ==

== ENCOUNTER → 2024-11-08 10:15 | Outpatient (REF) | payer MEDICARE, BC, SELFPAY ==
--- OUTSIDE RECORDS SUMMARY | 2024-11-08 10:17 | XMS_ITS | Patient Health Record ---
Author Organization [facility] Address [address] [place] [address] Care Team Providers Care Orthodontic Assistant Name Role Phone REBEKAH LYNN Primary Care Provider Harinder Lerma Jr [phone] REASON FOR REFERRAL No Information MEDICATIONS Medication SIG (Take, Route, Fr equency, Duration) Notes Start Date End Date Status MoviPrep 100 GM as directed before c olonoscopy Orally for 1 dose 05/30/2014 Active Paxil 20 MG 1 tablet in the morn ing Orally Once a day Active SOCIAL HISTORY Sex Assigned At : Social History Observation Description Sex Assigned At Unknown PROBLEMS Problem Type ICD Code Onset Dates Problem Status W/U Status Risk SNOMED Code Notes Problem Diverticulitis (562.11) Active confirmed 943718913 Problem Rectal bleeding (569.3) Active confirmed 92714259 Encounters Encounter Location Date Provider Diagnosis [facility] [address] [place] [address] 10/21/2024 Harinder Ta Jr [facility] [address] [place] [address] 10/21/2024 Harinder Ta Jr PLAN OF TREATMENT Future Test Test Name Order Date COLONOSCOPY 05/30/2014 Next Appt Details Provider Name:Harinder craig Jr, 01/13/2025 10:20:00 AM, [address] [facility], [address], [place], [address], Insurance Providers Payer Name Payer Address Payer Phone Subscriber Number Group Number Insured Name Patient Relationship to Insured Coverage Start Date Coverage End Date MEDICARE OF [place] [address] [place] [address] [phone] [id number] ANSLEY GARCIA Self - patient is the insured [facility] [address] [place], [place] [id number] ANSLEY GARCIA Self - patient is the insured MEDICAL (GENERAL) HISTORY Medical History History ICD Code colonoscopy 04-15-2009 colon polyp diverticulitis anxiety Denies [place],DM,CVA,Lung disease,renal dise ase
--- OUTSIDE RECORDS SUMMARY | 2024-11-08 10:17 | XMS_ITS ---
Author Organization [facility] Address [address] [place] [address] Care Team Providers Care Regional Geodetic Advisor Name Role Phone JACEREBEKAH TUBBS Primary Care Provider UnavailHarinder Medrano Jr REASON FOR VISIT Pt no show Encounters Encounter Location Date Provider Diagnosis [facility] [address] [place] [address] [address] [place] [address] 10/21/2024 Harinder Ta Jr PLAN OF TREATMENT Next Appt Details Provider Name:Harinder craig Jr, 01/13/2025 10:20:00 AM, [address] [place] [address], [address], [place], [address],
--- OUTSIDE RECORDS SUMMARY | 2024-11-08 10:17 | XMS_ITS | Patient Health Record ---
Author Organization [facility] Address [address] [place] [address] Care Team Providers Care Ocean Import Representative Name Role Phone Kristian Goldman Primary Care Provider Unav ailable Black, Mayra Unavailable [phone] Allergies No Known Allergies Reason For Referral No Information Medications Medication SIG (Take, Route, Frequency, Duration) Notes Start Date End Date Status Lamisil 250 250 MG 1 Tab Oral Daily for 90 015 Not-Taking Betamethasone Dipropionate Aug 0.05 % 1 application to affected area Externally Once a day for as needed 06/01/2015 Not-Taking Eliquis 5 MG as directed Orally Active Night Splint AFO - L1930 as directed Not-Taking amLODIPine Besylate 2.5 MG Oral for 90 Active Night Splint AFO - L1930 as directed 03/28/2016 Not-Taking Apixaban Not-Taking Dronedarone HCl Not- Taking Methotrexate 2.5 MG Oral for 56 Not-Taking Folic Acid Not-Takin g Night Splint AFO - L1930 as directed 01/20/2022 Active Tolterodine Tartrate ER 4 MG TAKE 1 CAPSULE BY MOUTH DAILY Diagnosis Unavailable Oral for 30 Active Tamsulosin HCl 0.4 MG TAKE 1 CAPSULE BY MOUTH DAILY Diagnosis Unavailable Oral for 90 Active PARoxetine HCl 20 MG 1 tablet in the mor anabel Orally Once a day Active Multaq 400 MG 1 tablet with meals Orally Twice a day Active Social History Tobacco Use: Social History Observation Description Date Details (start date - stop date) Former Smoker NA - NA Tobacco Use/Smoking Question Answer Notes Are you a: former smoker Additional Findings: Tobacco Non-User Current no n-smoker Alcohol Screen Question Answer Notes Did you have a drink containing alcohol in the p ast year? No Points 0 Interpretation Negative Tobacco use other than smoking: Question Answer Notes Are you an other tobacco user? No Problems Problem Type SNOMED Code ICD Code Onset Dates Problem Status W/U Status Risk Notes Problem 95434871 Ulcer of left heel and midfoot, limited to breakdown of skin (L97.421) Active confirmed Plan Of Treatment Pending Test Test Name Order Date *Liver Function Test (LFT) 02/26/2015 61469-YNRDMVD NAIL, 6 OR MORE 02/26/2015 53632-IOCCFUD NAIL, 6 OR MORE 06/01/2015 59587-FNLTGTV NAIL, 6 OR MORE 10/27/2022 94769-PJNIQGR NAIL, 6 OR MORE 08/24/2015 34513-UUVUUFB NAIL, 6 OR MORE 11/30/2015 61257-MSQEQGU NAIL, 6 OR MORE 05/30/2016 26895-AUFYXIQ NAIL, 6 OR MORE 09/01/2016 [id number] NAIL, 6 OR MORE 02/02/2017 31267-WDFBRAV NAIL, 6 OR MORE 08/03/2017 21930-QLYSNRS NAIL, 6 OR MORE 02/01/2018 77070-ZAHHMEI NAIL, 6 OR MORE 09/06/2018 82685-ZNGFVYB NAIL, 6 OR MORE 01/20/2022 42717- Debride <25 sq cm 10/27/2022 89964- Debride <25 sq cm 06/01/2015 37917- Debride <25 sq cm 02/26/2015 Insurance Providers Payer Name Payer Address Payer Phone Subscriber Number Group Number Insured Name Patient Relationship to Insured Coverage Start Date Coverage End Date Medicare [employer] [address] [facility] [place] [address] [id number] Tyree Ferrell Self - patient is the insured [facility] [address] [place] [address] [id number] Tyree Ferrell Self - patient is the insured Medical (General) History Medical History History ICD Code Diverticulitis Chicken pox Anxiety Measles High blood pressure Heart disease Surgical History Surgery Date(Month/Year) colonoscopy Hospitalization History Reason Date(Month/Year) [facility] for chest paim. pt was kept over nig ht for observation 06/2016
--- OUTSIDE RECORDS SUMMARY | 2024-11-08 10:17 | XMS_ITS ---
Author Organization [facility] Address [address] [place] [address] Care Team Providers Care Laundry Press Operator Name Role Phone JACEREBEKAH TUBBS Primary Care Provider UnavailHarinder Medrano Jr REASON FOR VISIT COLON SCREENING Encounters Encounter Location Date Provider Diagnosis [facility] [address] [place] [address] [address] [place] [address] 10/21/2024 Harinder Ta Jr PLAN OF TREATMENT Next Appt Details Provider Name:Harinder craig Jr, 01/13/2025 10:20:00 AM, [address] [place] [address], [address], [place], [address],
== END ==
LOC: HO.CARD 10:15
PROVIDERS: PCP Nurse Practitioner Family; Visit Provider Internal Medicine
DX: I48.0 Paroxysmal atrial fibrillation (principal)
CPT/HCPCS: 93242

== ENCOUNTER → 2024-11-08 10:17 | Outpatient (BNV) | payer MEDICARE, BC, SELFPAY | PROVIDERS: PCP Nurse Practitioner Family; Visit Provider Internal Medicine Cardiovascular Disease | DX: I49.3 Ventricular premature depolarization (principal) | CPT/HCPCS: 93244 ==

== ENCOUNTER 2024-11-14 10:06 | Outpatient (AMB) | payer MEDICARE, BC, SELFPAY ==
--- NOTE | 2024-11-14 10:07 | A.OFFVIS_ITS ---
Intake Visit Reasons: 2m follow up Intake Note: Patient is present for2M F/U Urology Medication:TERAZOSIN,OXYBUTYNIN Antibiotic Allergy:NONE Blood Thinner:APIXABAN Registered Dental Assistant Required: No Allergies No Known Allergies [No Known Allergies*] Allergy (Verified 11/14/24 10:08) HPI Comments Details: Tyree GARCIA is a very pleasant male. He is a patient of Dr Woody. He is seen for the following urologic conditions. - BPH - urinary urgency Telemedicine Evaluation 15 min Consultation [employer] [facility] [facility] Two month follow-up trial oxybutynin Failed oxybutynin trial Discussed trial Toviaz Prescription provided Open bladder neck on prior cystoscopy - bladder instability Has previously failed oxybutynin 10 mg, terazosin Nocturia x3 Persistent urge frequency but does note that he drinks too much coffee Continues with EVON mask and has been thirsty at night Lower Urinary Tract Symptoms: Current visit is for further evaluation of, lower urinary tract symptoms, predominate obstructive symptoms. Current treatment includes medication, alpha dayo - tamsulosin 0.4 mg with tolterodine Prostate Symptom Score 10/19 , Moderate (9-19), Bother 3. Symptoms include 10/ , incomplete emptying, weak stream, nocturia (>2), and are progressing. PSA 09/06 0.2, 10/11 0.3, 01/13 0.2 - family history of prostate cancer with father Prostate volume 30-50gm. [facility] Medical History Morbid obesity Weak urinary stream Incomplete emptying of bladder Essential hypertension EVON on CPAP Paroxysmal atrial fibrillation Surgical History History of tonsillectomy Family History Father Heart attack Prostate cancer Mother Heart disease Son Substance use disorder Daughter Substance use disorder Sister Mental health disorder Social History Housing: House Are you a primary pet caregiver to a significant other at home: No Do you presently have visiting nurse or other home services: No Alcohol intake: never Patient Tobacco Use Status: Former Tobacco user Years Smoked: 10 +/- e-Cigarette/Vaping Use: Never Used Second Hand Smoke Exposure: No Advance Directives Date on File: 01/22/16 service: Yes Current occupational status: retired Cognitive needs: No Hearing needs: No Vision needs: No Review of Systems Const Denies chills and Denies fever(s) Card Reports no additional complaints and Denies syncope Resp Denies cough GI Denies abdominal pain and Denies heartburn Reports as per HPI and Denies change in libido Neuro Denies syncope Psych Denies change in libido Endo Denies change in libido Physical Exam Const General: cooperative, healthy appearing, comfortable and no acute distress Orientation/consciousness: patient oriented x3 HEENT Face and sinus: Yes normal facial exam Mouth: moist mucous membranes Neck Neck: Yes normal visual inspection, Yes full ROM and Yes trachea midline Chest Chest palpation & inspection: normal inspection of the chest Resp Effort & Inspection: normal respiratory effort, able to speak in complete sentences and no respiratory distress GI Inspection: Yes normal to inspection Back/Spine/Pelvis Cervical Spine: normal cervical lordosis Thoracic/Lumbar Spine: thoracic and lumbar spine normal to inspection Skin General skin exam: no rashes or lesions noted Neuro General: patient oriented x3, gait normal, tone normal and moves all extremities Extrem General: Yes normal to inspection and Yes capillary refill normal Assessment & Plan Assessment & Plan (1) BPH (benign prostatic hyperplasia): Code(s): N40.0 - Benign prostatic hyperplasia without lower urinary tract symptoms Category: Medical (2) Weak urinary stream: Code(s): R39.12 - Poor urinary stream Category: Medical (3) Bladder instability: Code(s): N32.89 - Other specified disorders of bladder Category: Medical Plan Trial [place] [employer] Medications: New fesoterodine ER 8 mg PO DAILY 30 days 30 tabs 1RF N32.89 - Other specified disorders of bladder, N40.0 - Benign prostatic hyperplasia without lower urinary tract symptoms Discontinued oxybutynin chloride ER Discontinued Reason: Doctor's Order 10 mg PO DAILY 30 days 30 tabs 1RF N32.81 - Overactive bladder, R39.15 - Urgency of urination Patient Instructions: Imaging studies, laboratory and physical exam results were discussed and reviewed in detail. No major barriers to patient understanding were identified. An opportunity to ask questions regarding the treatment plan was provided. All questions were answered. The patient expressed understanding and agreement with the above treatment plan. The patient is aware they should contact our office by phone for worsening of their current condition or the appearance of new urologic symptoms. Compliance is encouraged with any medications and followup testing that is ordered. It is a privilege to participate in the urologic care of your patient. If you have any questions or concerns regarding treatment for the above conditions, or other urologic issues, please do not hesitate to contact me. The office telephone contact is [phone]. This note is constructed using voice recognition software. While every effort has been made to ensure accuracy dealer relationship manager errors may have been included. Yours sincerely, Dr Farzad Ivan MD, [facility] - Urology Providers of Expert, Compassionate Care for the Genitourinary System Coding Level of Care Code Tele Est Pt Level 4 (06667) Diagnoses BPH (benign prostatic hyperplasia) N40.0 Weak urinary stream R39.12 Bladder instability N32.89
--- OUTSIDE RECORDS SUMMARY | 2024-11-14 10:09 | XMS_ITS ---
Author Organization [facility] Address [address] [place] [address] Care Team Providers Care Diabetes Specialist Name Role Phone JACEREBEKAH TUBBS Primary Care Provider UnavailHarinder Medrano Jr [phone] REASON FOR VISIT COLON SCREENING Encounters Encounter Location Date Provider Diagnosis [facility] [address] [place] [address] [address] [place] [address] 10/21/2024 Harinder Ta Jr PLAN OF TREATMENT Next Appt Details Provider Name:Harinder craig Jr, 01/13/2025 10:20:00 AM, [address] [place] [address], [address], [place], [address],
--- OUTSIDE RECORDS SUMMARY | 2024-11-14 10:09 | XMS_ITS | Patient Health Record ---
Author Organization [facility] Address [address] [place] [address] Care Team Providers Care Cathode Maker Name Role Phone REBEKAH LYNN Primary Care Provider Harinder Lerma Jr REASON FOR REFERRAL No Information MEDICATIONS Medication [...] Code Notes Problem Diverticulitis (562.11) Active confirmed 647306513 Problem Rectal bleeding (569.3) Active confirmed 47662490 Encounters Encounter Location Date Provider Diagnosis [facility] [address] [place] [address] 10/21/2024 Harinder Ta Jr [facility] [address] [place] [address] 10/21/2024 Harinder Ta Jr PLAN OF TREATMENT Future Test Test Name Order Date COLONOSCOPY 05/30/2014 Next Appt Details Provider Name:Harinder craig Jr, 01/13/2025 10:20:00 AM, [address], [address], [place], [address], Insurance Providers Payer Name Payer Address Payer Phone Subscriber Number Group Number Insured Name Patient Relationship to Insured Coverage Start Date Coverage End Date MEDICARE [place] [address] [place] [address] [id number] ANSLEY GARCIA Self - patient is the insured [facility] [address] [place], [place] [id number] ANSLEY GARCIA Self - patient is the insured MEDICAL (GENERAL) HISTORY Medical History History ICD Code colonoscopy 04-15-2009 colon polyp diverticulitis anxiety Denies [place],DM,CVA,Lung disease,renal dise ase
--- OUTSIDE RECORDS SUMMARY | 2024-11-14 10:09 | XMS_ITS ---
Author Organization [facility] Address [address] [place] [address] Care Team Providers Care Dialysis Registered Nurse Name Role Phone JACEREBEKAH TUBBS Primary Care Provider UnavailHarinder Medrano Jr REASON FOR VISIT Pt no show Encounters Encounter Location Date Provider Diagnosis [facility] [address] [place] [address] [address] [place] [address] 10/21/2024 Harinder Ta Jr PLAN OF TREATMENT Next Appt Details Provider Name:Harinder craig Jr, 01/13/2025 10:20:00 AM, [address] [place] [address], [address], [place], [address],
--- OUTSIDE RECORDS SUMMARY | 2024-11-14 10:10 | XMS_ITS | Patient Health Record ---
Author Organization [facility] Address [address] [place] [address] Care Team Providers Care Special Effects Specialist Name Role Phone Kristian Goldman Primary Care Provider Unav ailable Black, Mayra Unavailable [phone] Allergies No Known Allergies Reason For Referral [...] Problem Status W/U Status Risk Notes Problem [id number] Ulcer of left heel and midfoot, limited to breakdown of skin (L97.421) Active confirmed Plan Of Treatment Pending Test Test Name Order Date *Liver Function Test (LFT) 02/26/2015 [id number] NAIL, 6 OR MORE 02/26/2015 [id number] NAIL, 6 OR MORE 06/01/2015 [id number] NAIL, 6 OR MORE 10/27/2022 [id number] NAIL, 6 OR MORE 08/24/2015 [id number] NAIL, 6 OR MORE 11/30/2015 [id number] NAIL, 6 OR MORE 05/30/2016 [id number] NAIL, 6 OR MORE 09/01/2016 [id number] NAIL, 6 OR MORE 02/02/2017 [id number] NAIL, 6 OR MORE 08/03/2017 [id number] NAIL, 6 OR MORE 02/01/2018 [id number] NAIL, 6 OR MORE 09/06/2018 [id number] NAIL, 6 OR MORE 01/20/2022 75739- Debride <25 sq cm 10/27/2022 65079- Debride <25 sq cm 06/01/2015 10427- Debride <25 sq cm 02/26/2015 Insurance Providers Payer Name Payer Address Payer Phone Subscriber Number Group Number Insured Name Patient Relationship to Insured Coverage Start Date Coverage End Date Medicare National [employer] [address] [place] [address] [id number] Tyree Ferrell Self - patient is the insured [facility] [address] [place] [address] [id number] Tyree Ferrell Self - patient is the insured Medical (General) History Medical History History ICD Code Diverticulitis Chicken pox Anxiety Measles High blood pressure Heart disease Surgical History Surgery Date(Month/Year) colonoscopy Hospitalization History Reason Date(Month/Year) [facility] [place]. pt was kept over nig ht for observation 06/2016
== END 2024-11-14 12:18 | disposition home or self-care (01) ==
LOC: HO.HUSH 10:06
PROVIDERS: PCP Nurse Practitioner Family; Visit Provider Urology
DX: N40.0 Benign prostatic hyperplasia without lower urinary tract symptoms (principal); R39.12 Poor urinary stream; N32.89 Other specified disorders of bladder
CPT/HCPCS: 99214

== ENCOUNTER 2024-11-27 10:08 | Outpatient (AMB) | payer MEDICARE, BC, SELFPAY ==
--- NOTE | 2024-11-27 10:11 | MHC.PC.OV ---
Vital Signs 11/27/24 10:13 Height 6 ft 1 in Weight 284 lb BMI 37.5 BP 138/88 Blood Pressure Location Rt brachial Position Sitting Pulse 80 Pulse Source Pulse Oximeter Pulse Oximetry (%) 96 Oxygen Delivery Method Room Air Intake Visit Reasons: 6 month fu Intake Note: pt is here for 6 month f/up Supervisor Fruit Grading Required: No Allergies No Known Allergies [No Known Allergies*] Allergy (Verified 11/27/24 10:16) Tobacco use date assessed: 11/27/24 Fall risk assessment: No Falls in past year Last assessed Fall Risk: 11/27/24 Dental Screening Dental Screen Date: 11/27/24 Did you have a dental visit in the last 12 months?: Yes Did you have a dental problem in the last 6 months where you did not have access to dental care?: No Was dental information given to patient?: Patient has dentist HPI 6 month fu HPI Details Patient is here for six-month follow-up. He reports getting over a cold though denies any shortness of breath, chest pain, fevers, chills, headache, neuropathy. He is morbidly obese, he is due for labs which I will get. He still currently follows up with Cardiology and Urology. He does report hearing loss bilat I have flushed his ears in the past and we will look at this again and I will refer him for a hearing test. [facility] Medical History Morbid obesity Weak urinary stream Incomplete emptying of bladder Essential hypertension EVON on CPAP Paroxysmal atrial fibrillation Surgical History History of tonsillectomy Family History Father Heart attack Prostate cancer Mother Heart disease Son Substance use disorder Daughter Substance use disorder Sister Mental health disorder Social History Housing: House Are you a primary interior plant caretaker to a significant other at home: No Do you presently have visiting nurse or other home services: No Alcohol intake: never Patient Tobacco Use Status: Former Tobacco user Years Smoked: 10 +/- e-Cigarette/Vaping Use: Never Used Second Hand Smoke Exposure: No Advance Directives Date on File: 01/22/16 service: Yes Current occupational status: retired Cognitive needs: No Hearing needs: No Vision needs: No Questionnaire PHQ-9 Over the last 2 weeks, how often have you been bothered by any of the following problems? 1. Little interest or pleasure in doing things: not at all 2. Feeling down, depressed, or hopeless: several days 3. Trouble falling or staying asleep, or sleeping too much: not at all 4. Feeling tired or having little energy: several days 5. Poor appetite or overeating: not at all 6. Feeling bad about yourself - or that you are a failure or have let yourself or your family down: not at all 7. Trouble concentrating on things, such as reading the newspaper or watching television: not at all 8. Moving or speaking so slowly that other people could have noticed. Or the opposite - being so fidgety or restless that you have been moving around a lot more than usual: not at all 9. Thoughts that you would be better off or of hurting yourself in some way: not at all Total score: 2 Depression Screening Interpretation: Negative Depression Screening Done: Yes 64462 - PHQ-9 Billing: Yes Source: Developed by Drs. Huang Wing, Milly Bernard, Sridhar Hoffman and colleagues, with an educational bryanna from [employer]. Thrive Questionnaire Date Thrive assessed: 11/27/24 I am a: Patient What is your living situation today?: I have a steady place to live Within the past 12 months, did the food you bought not last and you didn't have the money to get more?: Never true Within the past 12 months, did you worry whether your food would run out before you got money to buy more?: Never true Do you have trouble paying for medicines?: No Do you have trouble getting transportation to medical appointments?: No Do you have trouble paying your heating and electricity bill?: No Do you have trouble taking care of your child, family member or friend?: No Do you have trouble with day-to-day activities such as bathing, preparing meals, shopping, managing finances, etc.?: No Are you currently unemployed and looking for a job?: No Are you interested in more education?: No Please select the resources that you would like help with: None Currently or been in a relationship where the following occur: No concerns reported THRIVE Score: 0 AUDIT C Alcohol Use Questionnaire (AUDIT-C) 1. How often do you have a drink containing alcohol?: Never 3. How often do you have six or more drinks on one occasion?: Never Total Score: 0 Score Reviewed/Action Taken: Yes YESSENIA-7 AMB Questionnaire YESSENIA-7 Date YESSENIA - 7 assessed: 11/27/24 Feeling nervous, anxious, or on edge: 1 = Several days Not being able to stop or control worryin = Not at all Worrying too much about different things: 0 = Not at all Trouble relaxin = Not at all Being so restless that it is hard to sit still: 0 = Not at all Becoming easily annoyed or irritable: 1 = Several days Feeling afraid as if something awful might happen: 1 = Several days Total YESSENIA-7 score (0-4 normal; 5-9 mild; 10-14 moderate; 15-21 severe): 3 Source: Developed by Drs. Huang Wing, Milly Bernard, Sridhar Hoffman and colleagues, with an educational bryanna from [employer]. YESSENIA-7 Assessment Billing YESSENIA-7 Assessment Tool: YESSENIA-7 Assessment 22175 Physical exam (Primary Care) Vital Signs: Last Vital Signs Pulse 80 11/27/24 10:13 BP 138/88 11/27/24 10:13 Pulse Ox 96 11/27/24 10:13 Oxygen Delivery Method Room Air 11/27/24 10:13 BMI result Body Mass Index 37.5 Tobacco/Smoking Status: Tobacco use Status Tobacco use date assessed 11/27/24 11/27/24 10:18 Patient Tobacco Use Status Former Tobacco user 11/27/24 10:12 e-Cigarette/Vaping Use Never Used 11/27/24 10:12 PHQ-9: PHQ-9 Score PHQ-9: Total score 2 11/27/24 10:29 Depression Screening Interpretation: Negative Thrive Assessment: Date of Thrive Assessment Date Thrive assessed 11/27/24 11/27/24 10:18 Currently or been in a relationship where the following occur: No concerns reported Const General: cooperative, healthy appearing, comfortable, no acute distress and well developed Nutritional Appearance: obese morbidly obese [facility] Other: cerumen noted bilat, after ear lavage TMs easily seen Resp Effort & Inspection: normal respiratory effort Auscultation: clear to auscultation bilaterally Cardio Rate: regular rate Rhythm: regular rhythm Heart sounds: S1 normal heart sound present and S2 normal heart sound present Extrem Other: trace edema to BLE Psych Appearance: grossly normal Mental Status: mental status grossly normal Speech and movement: Normal speech and movement present Affect: normal affect Attitude: cooperative Insight: Good insight present (Psych) Judgement: Good judgement present (Psych) Office Procedures Cerumen Removal From which ear canal was the cerumen removed: bilateral Removal: irrigation Notes: patient tolerated procedure well and no complications 57759-Frh Irrigation/Lavage Coding Level of Care Code Est Pt Level 3 (86652) Diagnoses Morbid obesity E66.01 B12 deficiency E53.8 Loss of hearing H91.90 Excessive cerumen in both ear canals H61.23 CPT Codes Office Procedure - CPT: 26791-Pkn Irrigation/Lavage ([id number]) Additional Codes YESSENIA-7 Assessment Billing - YESSENIA-7 Assessment Tool: YESSENIA-7 Assessment 98679 ([id number]) PHQ-9 - 45893 - PHQ-9 Billing: Yes ([id number]) Assessment & Plan Assessment & Plan (1) Morbid obesity: Code(s): E66.01 - Morbid (severe) obesity due to excess calories Category: Medical (2) B12 deficiency: Code(s): E53.8 - Deficiency of other specified B group vitamins Category: Medical Plan: lab re entered (3) Loss of hearing: Code(s): H91.90 - Unspecified hearing loss, unspecified ear Category: Medical Plan: Cerumen in ear flush and referred for hearing test. Patient is aware that the treatment for hearing loss tends to be hearing aids. (4) Excessive cerumen in both ear canals: Code(s): H61.23 - Impacted cerumen, bilateral Category: Medical Plan clear ear canals bilat after ear lavage, TMS intact without erythema Orders: Orders Comprehensive [place]. Panel Fast Today E66.01 - Morbid (severe) obesity due to excess calories TSH reflex Free T4 Today E66.01 - Morbid (severe) obesity due to excess calories UA CC w/rflx Micro + Cult Today E66.01 - Morbid (severe) obesity due to excess calories Vitamin B12 and Folate Today E53.8 - Deficiency of other specified B group vitamins Complete Blood Count Auto Diff Today E66.01 - Morbid (severe) obesity due to excess calories Lipid Panel Today E66.01 - Morbid (severe) obesity due to excess calories Referrals Speech and Hearing Referral H91.90 - Unspecified hearing loss, unspecified ear
[2024-11-27 10:13] VITALS: BP 138/88; PULSE 80; O2SAT 96; BMI 37.5
--- OUTSIDE RECORDS SUMMARY | 2024-11-27 10:24 | XMS_ITS ---
Author Organization [facility] Address [address] [place] [address] Care Team Providers Care Historical Records Administrator Name Role Phone JACEREBEKAH TUBBS Primary Care Provider UnavailHarinder Medrano Jr [phone] REASON FOR VISIT COLON SCREENING Encounters Encounter Location Date Provider Diagnosis [facility] [address] [place] [address] [address] [place] [address] 10/21/2024 Harinder Ta Jr PLAN OF TREATMENT Next Appt Details Provider Name:Harinder craig Jr, 01/13/2025 10:20:00 AM, [address] [place] [address], [address], [place], [address],
--- OUTSIDE RECORDS SUMMARY | 2024-11-27 10:24 | XMS_ITS | Patient Health Record ---
Author Organization [facility] Address [address] [place] [address] Care Team Providers Care Underwear Finisher Name Role Phone REBEKAH LYNN Primary Care Provider Harinder Lerma Jr [phone] REASON FOR REFERRAL No Information MEDICATIONS Medication [...] Code Notes Problem Diverticulitis (562.11) Active confirmed 178017742 Problem Rectal bleeding (569.3) Active confirmed 83566962 Encounters Encounter Location Date Provider Diagnosis [facility] [address] [place] [address] 10/21/2024 Harinder Ta Jr [facility] [address] [place] [address] 10/21/2024 Harinder Ta Jr PLAN OF TREATMENT Future Test Test Name Order Date COLONOSCOPY 05/30/2014 Next Appt Details Provider Name:Harinder craig Jr, 01/13/2025 10:20:00 AM, [address] [facility], [address], [place], [address], Insurance Providers Payer Name Payer Address Payer Phone Subscriber Number Group Number Insured Name Patient Relationship to Insured Coverage Start Date Coverage End Date MED[place]ARE [place] [address] [place] [id number] [id number] ANSLEY GARCIA Self - patient is the insured [facility] [address] [place], [place] [id number] [phone] [id number] ANSLEY GARCIA Self - patient is the insured MEDICAL (GENERAL) HISTORY Medical History History ICD Code colonoscopy 04-15-2009 colon polyp diverticulitis anxiety Denies [place],DM,CVA,Lung disease,renal dise ase
--- OUTSIDE RECORDS SUMMARY | 2024-11-27 10:24 | XMS_ITS ---
Author Organization [facility] Address [address] [place] [address] Care Team Providers Care Cleaner Wall Name Role Phone JACEREBEKHA TUBBS Primary Care Provider UnavailHarinder Medrano Jr REASON FOR VISIT Pt no show Encounters Encounter Location Date Provider Diagnosis [facility] [address] [place] [address] [address] [place] [address] 10/21/2024 Harinder Ta Jr PLAN OF TREATMENT Next Appt Details Provider Name:Harinder craig Jr, 01/13/2025 10:20:00 AM, [address] [place] [address], [address], [place], [address],
--- OUTSIDE RECORDS SUMMARY | 2024-11-27 10:25 | XMS_ITS | Patient Health Record ---
Author Organization [facility] Address [address] [place] [address] Care Team Providers Care Safety Associate Name Role Phone Kristian Goldman Primary Care Provider Unav ailable Black, Mayra Unavailable [phone] Allergies No Known Allergies Reason For Referral [...] Problem Status W/U Status Risk Notes Problem [id number] Ulcer of left heel and midfoot, limited to breakdown of skin (L97.421) Active confirmed Plan Of Treatment Pending Test Test Name Order Date *Liver Function Test (LFT) 02/26/2015 [id number] NAIL, 6 OR MORE 02/26/2015 [id number] NAIL, 6 OR MORE 06/01/2015 [id number] NAIL, 6 OR MORE 10/27/2022 [id number] NAIL, 6 OR MORE 11/30/2015 [id number] NAIL, 6 OR MORE 02/01/2018 [id number] NAIL, 6 OR MORE 08/24/2015 [id number] NAIL, 6 OR MORE 05/30/2016 [id number] NAIL, 6 OR MORE 09/01/2016 [id number] NAIL, 6 OR MORE 02/02/2017 [id number] NAIL, 6 OR MORE 08/03/2017 [id number] NAIL, 6 OR MORE 09/06/2018 [id number] NAIL, 6 OR MORE 01/20/2022 87430- Debride <25 sq cm 10/27/2022 23761- Debride <25 sq cm 06/01/2015 79797- Debride <25 sq cm 02/26/2015 Insurance Providers Payer Name Payer Address Payer Phone Subscriber Number Group Number Insured Name Patient Relationship to Insured Coverage Start Date Coverage End Date Medicare National Govt Sv[employer] [address] [facility] [place] [address] [id number] Tyree Ferrell Self - patient is the insured [facility] [address] [place] [address] [id number] Tyree Ferrell Self - patient is the insured Medical (General) History Medical History History ICD Code Diverticulitis Chicken pox Anxiety Measles High blood pressure Heart disease Surgical History Surgery Date(Month/Year) colonoscopy Hospitalization History Reason Date(Month/Year) [facility] [place] for chest paim. pt was kept over nig ht for observation 06/2016
== END 2024-11-27 11:38 | disposition home or self-care (01) ==
PROVIDERS: PCP Nurse Practitioner Family; Visit Provider Nurse Practitioner Family
DX: H91.93 Unspecified hearing loss, bilateral (principal); E66.01 Morbid (severe) obesity due to excess calories; E53.8 Deficiency of other specified B group vitamins; H61.23 Impacted cerumen, bilateral; Z68.37 Body mass index [BMI] 37.0-37.9, adult

== ENCOUNTER → 2024-11-27 10:08 | Outpatient (BNVA) | payer MEDICARE, BC, SELFPAY | PROVIDERS: PCP Nurse Practitioner Family; Visit Provider Nurse Practitioner Family | DX: E66.01 Morbid (severe) obesity due to excess calories (principal); E53.8 Deficiency of other specified B group vitamins; H61.23 Impacted cerumen, bilateral; Z87.891 Personal history of nicotine dependence; Z68.37 Body mass index [BMI] 37.0-37.9, adult | CPT/HCPCS: 69209; 96127; 99212 ==

== ENCOUNTER 2024-12-02 09:23 | Outpatient (AMB) | payer MEDICARE, BC, SELFPAY ==
--- OUTSIDE RECORDS SUMMARY | 2024-12-02 10:07 | XMS_ITS ---
Author Organization [facility] Address [address] [place] [address] Care Team Providers Care Clerical Investigator Name Role Phone JACEREBEKAH TUBBS Primary Care Provider UnavailHarinder Medrano Jr REASON FOR VISIT Pt no show Encounters Encounter Location Date Provider Diagnosis [facility] [address] [place] [address] [address] [place] [address] 10/21/2024 Harinder Ta Jr PLAN OF TREATMENT Next Appt Details Provider Name:Harinder craig Jr, 01/13/2025 10:20:00 AM, [address] [place] [address], [address], [place], [address],
--- OUTSIDE RECORDS SUMMARY | 2024-12-02 10:07 | XMS_ITS ---
Author Organization [facility] Address [address] [place] [address] Care Team Providers Care .Net Architect Name Role Phone JACEREBEKAH TUBBS Primary Care Provider UnavailHarinder Medrano Jr REASON FOR VISIT COLON SCREENING Encounters Encounter Location Date Provider Diagnosis [facility] [address] [place] [address] [address] [place] [address] 10/21/2024 Harinder Ta Jr PLAN OF TREATMENT Next Appt Details Provider Name:Harinder craig Jr, 01/13/2025 10:20:00 AM, [address] [place] [address], [address], [place], [address],
--- OUTSIDE RECORDS SUMMARY | 2024-12-02 10:07 | XMS_ITS | Patient Health Record ---
Author Organization [facility] Address [address] [place] [address] Care Team Providers Care Clerk Name Role Phone REBEKAH LYNN Primary Care Provider Haridner Lerma Jr REASON FOR REFERRAL No Information [...] Code Notes Problem Diverticulitis (562.11) Active confirmed 246834448 Problem Rectal bleeding (569.3) Active confirmed [id number] Encounters Encounter Location Date Provider Diagnosis [facility] [address] [place] [address] 10/21/2024 Harinder Ta Jr [facility] [address] [place] [address] 10/21/2024 Harinder Ta Jr PLAN OF TREATMENT Future Test Test Name Order Date COLONOSCOPY 05/30/2014 Next Appt Details Provider Name:Harinder craig Jr, 01/13/2025 10:20:00 AM, [address], [address], [place], [address], Insurance Providers Payer Name Payer Address Payer Phone Subscriber Number Group Number Insured Name Patient Relationship to Insured Coverage Start Date Coverage End Date MEDICARE OF [place] [address] [place] [address] [id number] ANSLEY GARCIA Self - patient is the insured [facility] [address] [place], [place] [id number] ANSLEY GARCIA Self - patient is the insured MEDICAL (GENERAL) HISTORY Medical History History ICD Code colonoscopy 04-15-2009 colon polyp diverticulitis anxiety Denies CA,DM,CVA,Lung disease,renal dise ase
--- OUTSIDE RECORDS SUMMARY | 2024-12-02 10:08 | XMS_ITS | Patient Health Record ---
Author Organization [facility] Address [address] [place] [address] Care Team Providers Care Email Marketing Manager Name Role Phone Kristian Goldman Primary Care Provider Unav ailable Black, Mayra Unavailable [phone] Allergies No Known Allergies Reason For Referral [...] Problem Status W/U Status Risk Notes Problem [id number] Ulcer of left heel and midfoot, limited to breakdown of skin (L97.421) Active confirmed Plan Of Treatment Pending Test Test Name Order Date *Liver Function Test (LFT) 02/26/2015 [id number] NAIL, 6 OR MORE 02/26/2015 [id number] NAIL, 6 OR MORE 06/01/2015 [id number] NAIL, 6 OR MORE 10/27/2022 [id number] NAIL, 6 OR MORE 08/24/2015 [id number] NAIL, 6 OR MORE 11/30/2015 [id number] NAIL, 6 OR MORE 05/30/2016 [id number] NAIL, 6 OR MORE 09/01/2016 [id number] NAIL, 6 OR MORE 02/02/2017 [id number] NAIL, 6 OR MORE 08/03/2017 [id number] NAIL, 6 OR MORE 02/01/2018 [id number] NAIL, 6 OR MORE 09/06/2018 [id number] NAIL, 6 OR MORE 01/20/2022 89920- Debride <25 sq cm 10/27/2022 16926- Debride <25 sq cm 06/01/2015 50808- Debride <25 sq cm 02/26/2015 Insurance Providers Payer Name Payer Address Payer Phone Subscriber Number Group Number Insured Name Patient Relationship to Insured Coverage Start Date Coverage End Date Medicare National Govt Svcs Inc [address] [place] [address] [id number] Tyree Ferrell Self - patient is the insured [facility] [address] [place] [address] [id number] Tyree Ferrell Self - patient is the insured Medical (General) History Medical History History ICD Code Diverticulitis Chicken pox Anxiety Measles High blood pressure Heart disease Surgical History Surgery Date(Month/Year) colonoscopy Hospitalization History Reason Date(Month/Year) [facility] [place] for chest paim. pt was kept over nig ht for observation 06/2016
[2024-12-02 10:19] VITALS: BP 128/82; PULSE 85; O2SAT 95; BMI 37.3
--- NOTE | 2024-12-02 10:19 | MHC.OFFWIV ---
Intake Vital Signs 12/02/24 10:19 Height 6 ft 1 in Weight 283 lb BMI 37.3 BP 128/82 Blood Pressure Location Rt brachial Position Sitting Pulse 85 Pulse Source Pulse Oximeter Pulse Oximetry (%) 95 Oxygen Delivery Method Room Air Intake Visit Reasons: EP ear ache ? ear infection mostly the LT ear Intake Note: Pt is here today for a walk in visit. Pt c/o L ear pain on and off since Monday. Patient Tobacco Use Status: Former Tobacco user Allergies No Known Allergies [No Known Allergies*] Allergy (Verified 12/02/24 10:48) HPI HPI Comments History of Present Illness Details Concern L ear infection R somewhat bothersome Intermittent since Monday He was seen Monday with PCP and wax was removed then Pain level in ear is 6/10 He said + head cold x 2 weeks He said sinuses better now, were pressure Minimal couh without SOB PFSH Medical History Morbid obesity Weak urinary stream Incomplete emptying of bladder Essential hypertension EVON on CPAP Paroxysmal atrial fibrillation Surgical History History of tonsillectomy Family History Father Heart attack Prostate cancer Mother Heart disease Son Substance use disorder Daughter Substance use disorder Sister Mental health disorder Social History Housing: House Are you a primary date night caregiver to a significant other at home: No Do you presently have visiting nurse or other home services: No Alcohol intake: never Patient Tobacco Use Status: Former Tobacco user Years Smoked: 10 +/- e-Cigarette/Vaping Use: Never Used Second Hand Smoke Exposure: No Advance Directives Date on File: 01/22/16 service: Yes Current occupational status: retired Cognitive needs: No Hearing needs: No Vision needs: No Review of Systems Const Denies chills and Denies fever(s) ENT Denies dizziness, Denies ear discharge, Reports otalgia, Reports nasal congestion, Denies sinus pain, Denies sore throat and Denies throat swelling Card Denies chest pain and Denies dyspnea Resp Reports cough and Denies dyspnea Neuro Denies dizziness Aller/Immun Denies throat swelling Physical Exam Vital Signs: Last Vital Signs Pulse 85 12/02/24 10:19 BP 128/82 12/02/24 10:19 Pulse Ox 95 12/02/24 10:19 Oxygen Delivery Method Room Air 12/02/24 10:19 BMI result Body Mass Index 37.3 General: Non-toxic, NAD. Speaking full sentences. Skin: Warm dry throughout Eye: EOMI, PERRL HENT: Bilateral canals clear without cerumen. TM non-erythematous, non-bulging. No TM perforation or hemotympanum noted. No mastoid or auricular tenderness to palpation Respiratory: No respiratory distress MSK: Full ROM extremities. Neurology: alert. No aphasia or facial droop. Gait without abnormality Psych: Good mood and affect Assessment & Plan Assessment & Plan (1) Otalgia of left ear: Code(s): H92.02 - Otalgia, left ear Plan: Patient seen and evaluated. No OM or OE on exam No trauma to membrane and canal clear without cerumen Discussed tylenol prn x 3 days Any worse, call office Patient gave verbal understanding and had no additional questions or concerns at time of discharge All questions answered Coding Level of Care Code Est Pt Level 3 (48881) Diagnoses Otalgia of left ear H92.02
== END 2024-12-02 11:09 | disposition home or self-care (01) ==
PROVIDERS: PCP Nurse Practitioner Family; Visit Provider Physician Assistant
DX: H92.02 Otalgia, left ear (principal)

== ENCOUNTER → 2024-12-02 09:23 | Outpatient (BNVA) | payer MEDICARE, BC, SELFPAY | PROVIDERS: PCP Nurse Practitioner Family; Visit Provider Physician Assistant | DX: H92.02 Otalgia, left ear (principal) | CPT/HCPCS: 99212 ==

== ENCOUNTER → 2024-12-05 08:48 | Outpatient (REF) | payer MEDICARE, BC, SELFPAY ==
--- NOTE | 2024-12-05 08:51 | CA_ITS ---
Transthoracic Echocardiogram Patient (Last, First, Middle): Tyree Ferrell A Gender: Male Date of : 1955 Age: 69 Procedure Date: 12/05/2024 Procedure Type: Transthoracic Echocardiogram Location: OP Height: 185.42 cm Weight: 128.37 kg BSA: 2.49 m2 Heart Rate: 70 bpm BP: 128 / 82 mmHg Silverware Buffing Machine Operator: GOSIA Referring MD: Amber Donnelly RADIO PRESENTER-Pavan Industrial Technologist: Cliff Ontiveros MD Symptoms: I47.29 - Other ventricular tachycardia Study Quality: Technically Difficult ECG Rhythm: Sinus Conclusions: - 1. Normal LV ejection fraction of 60 65% with mild LVH with impaired relaxation filling pattern 2. Mildly dilated left atrium 3. Calcific mitral valve changes noted with normal cardiac valvular Dopplers 4. Mildly dilated ascending aorta at 3.9 cm Number Findings Procedure Information Contrast agent, definity, is being given per protocol without apparent complications. The quality of the study was technically difficult. The study quality is limited by patients body habitus. Left Ventricle Normal left ventricular size and systolic function. There is mildly increased left ventricular wall thickness. The visually estimated ejection fraction is between 60-65%. Spectral Doppler is indicative of an impaired relaxation filling pattern. Right Ventricle The right ventricle was not well visualized. Atria The left atrium is mildly dilated. Interatrial shunt cannot be excluded. The right atrium was not well visualized. Aortic Valve Normal aortic valve structure and function. There is no aortic valve stenosis. There is no aortic valve regurgitation. Mitral Valve There is mild anterior mitral leaflet thickening. There is mild mitral annular calcification. There is trace mitral valve regurgitation. There is no mitral valve stenosis. Pulmonic Valve The pulmonic valve was not well visualized. Tricuspid Valve Likely normal tricuspid valve structure and function. There is trace tricuspid valve regurgitation. Tricuspid regurgitation envelope is inadequate for calculation of right ventricular systolic pressure. Normal right atrial pressure. Great Vessels The aorta was not well visualized. The pulmonary artery was not well visualized. There is mild dilatation of the ascending aorta measuring 3.90 cm. Venous The inferior vena cava is normal in size and collapses greater than 50% with inspiration. Pericardium/Pleural The pericardium was not well visualized. Prior Study Comparison No significant change compared to prior study dated: 06/17/2020. Measurements 2D Linear Measurements IVSd: 1.28 0.6-0.9/0.6-1.0 cm LVIDd: 5.28 3.9-5.3/4.2-5.9 cm LVIDd Index: 2.12 2.4-3.2/2.2-3.1 cm/m2 LVIDs: 4.10 2.0-3.6 cm LVPWd: 1.16 0.7-1.1 cm LA Diam: 4.60 2.7-3.8/3.0-4.0 cm LAIDs Index: 1.85 1.5-2.3 cm/m2 LV Mass: 325.42 67-162/88-224 g LV Mass Index: 130.69 43-95/49-115 g/m2 LVOT Diam: 2.70 3.0+(-)1.3 cm 2D Systolic Function EF 4C: 63.10 >55% EF 2C: 56.70 >55% EF BiP: 61.60 >55% Mitral Valve MV Pk E: 0.63 MV PK A: 0.55 MV Decel Time: 170.00 E/A: 1.10 E'Medial: 9.14 E/E' Med: 6.80 PHT: 50.00 MVA PHT: 4.40 Decel [place]: 3.68 Aortic Valve AoV Pk Samm: 0.76 AoV Pk Grad: 2.00 KAILASH: 5.68 LVOT LVOT Pk Samm: 0.75 LVOT Mn Samm: 0.52 LVOT VTI: 0.16 LVOT Pk Grad: 2.00 LVOT Mn Grad: 1.00 LVOT Diam: 2.70 LVOT Area: 5.73 Diastolic Function MV Pk E: 0.63 MV Pk A: 0.55 E/A: 1.10 E'Medial: 9.14 E/E' Med: 6.80 Right Ventricle TAPSE (mm): 20.30 TVS' Samm: 10.10 Tricuspid Valve RA Press: 3.00 Great Vessels Aorta Sinus of Valsalva: 3.80 2.0-3.5 cm Ao Asc: 3.90 2.1-3.4 cm Pulmonary Valve PV Pk Samm: 0.68 Peak PV Grad: 2.00 Updated in Other Vendor System with Status of Final Cliff Ontiveros MD electronically signed on 12/06/2024 1:31:41 PM with status of Final
== END ==
LOC: HO.CARD 08:48
PROVIDERS: PCP Nurse Practitioner Family; Visit Provider Nurse Practitioner Family
DX: I47.29 Other ventricular tachycardia (principal); I49.3 Ventricular premature depolarization
CPT/HCPCS: 93306; Q9957

== ENCOUNTER → 2024-12-05 08:51 | Outpatient (BNV) | payer MEDICARE, BC, SELFPAY | PROVIDERS: PCP Nurse Practitioner Family; Visit Provider Internal Medicine Cardiovascular Disease | DX: I34.81 Nonrheumatic mitral (valve) annulus calcification (principal); I51.89 Other ill-defined heart diseases | CPT/HCPCS: 93306 ==

== ENCOUNTER 2024-12-06 09:32 | Outpatient (AMB) | payer MEDICARE, BC, SELFPAY ==
[2024-12-06 09:39] VITALS: BP 140/78; PULSE 88; BMI 37.5
--- NOTE | 2024-12-06 09:39 | A.OFFVIS_ITS ---
Vital Signs 12/06/24 09:39 Height 6 ft 1 in Weight 284 lb 6.341 oz BMI 37.5 BP 140/78 H Blood Pressure Location Lt brachial Position Sitting Pulse 88 Pulse Source Pulse Oximeter Intake Visit Reasons: F/U s/p holter r/s fr 11/18 Allergies No Known Allergies [No Known Allergies*] Allergy (Verified 12/02/24 10:48) Medication List - Last Reconciled 12/06/24 by Amber Donnelly NP-C apixaban (Eliquis) 5 mg PO BID betamethasone dipropionate 0.05% 1 appl topical DAILY PRN fesoterodine ER 8 mg PO DAILY 30 days paroxetine HCl 20 mg PO DAILY HPI HPI F/U s/p holter r/s fr 11/18: Details: Tyree is a 69-year-old male with past medical history of hypertension, obesity, sleep apnea with CPAP use, paroxysmal atrial fibrillation with prior cardioversions and antiarrhythmic use now status post AFib ablation 01/30/2024 who presents for follow-up after recent Holter monitor. Today he reports he has not felt any atrial fibrillation since his last visit in April. He denies any chest discomfort at rest or with activity. He has no shortness of breath, PND, orthopnea or edema. He wears his CPAP at night but tells me he needs a new mask as it is not fitting right. No palpitations, lightheadedness, presyncope, syncope. He reports good daily activity tolerance. No routine exercise. No bleeding issues reported. He reports compliance with his meds but states he did run out of metoprolol recently. [facility] Medical History Morbid obesity Weak urinary stream Incomplete emptying of bladder Essential hypertension EVON on CPAP Paroxysmal atrial fibrillation Surgical History History of tonsillectomy Family History Father Heart attack Prostate cancer Mother Heart disease Son Substance use disorder Daughter Substance use disorder Sister Mental health disorder Social History Housing: House Are you a primary medicare insurance specialist to a significant other at home: No Do you presently have visiting nurse or other home services: No Alcohol intake: never Patient Tobacco Use Status: Former Tobacco user Years Smoked: 10 +/- e-Cigarette/Vaping Use: Never Used Second Hand Smoke Exposure: No Advance Directives Date on File: 01/22/16 service: Yes Current occupational status: retired Cognitive needs: No Hearing needs: No Vision needs: No Review of Systems Const All systems reviewed & are unremarkable except as noted in HPI and below Denies weakness ENT Denies dizziness Card Denies chest pain, Denies chest pain with activity, Denies syncope, Denies rapid heart rate, Denies pedal edema, Denies edema, Denies leg edema, Denies lightheadedness, Denies palpitations, Denies dyspnea, Denies dyspnea on exertion and Denies orthopnea Resp Denies cough, Denies dyspnea and Denies dyspnea on exertion GI Denies hematochezia and Denies change in stool character Musc Details: chronic swelling in left leg Denies abnormal gait, Denies muscle cramps, Denies muscle weakness, Denies numbness, Denies radiating pain into limb and Denies tingling Neuro Denies abnormal gait, Denies dizziness, Denies syncope, Denies numbness, Denies tingling and Denies weakness Endo Denies palpitations Physical Exam Vital Signs: Last Vital Signs Pulse 88 12/06/24 09:39 BP 140/78 H 12/06/24 09:39 BMI result Body Mass Index 37.5 Const General: cooperative, healthy appearing, comfortable and no acute distress Orientation/consciousness: patient oriented x3 Neck Neck: Yes normal visual inspection and Yes no JVD Resp Effort & Inspection: normal respiratory effort Auscultation: clear to auscultation bilaterally, no crackles, no rales, no rhonchi and no wheezes Cardio Rate: regular rate Rhythm: regular rhythm Heart sounds: S1 normal heart sound present, S2 normal heart sound present, no murmurs and no rubs Neuro General: patient oriented x3 Extrem Other: nonpitting edema in left lower leg - reported as chronic Psych Appearance: grossly normal Mental Status: mental status grossly normal Speech and movement: Normal speech and movement present Assessment & Plan Assessment & Plan (1) Paroxysmal atrial fibrillation: Code(s): I48.0 - Paroxysmal atrial fibrillation Category: Medical Plan: History of paroxysmal atrial fibrillation. He had previously undergone 2 cardioversions in the past and had been on Multaq then amiodarone. He was referred to EP and underwent atrial fibrillation ablation 01/30/2024. He has not had documented recurrent AFib since that time. Last Holter monitor was done 11/08/2024 for 3 days shows sinus rhythm with frequent PVCs, 2.9% of the time with brief ventricular runs, longest 9 beats. He had been on metoprolol XL 25 mg daily but tells me he recently ran out. He has been taking Eliquis without interruption. No bleeding issues reported. Pulse is very regular on examination today, clinically in sinus rhythm. Labs done 06/06/2024 showed creatinine 0.77, hemoglobin 15.2. He says he has been on Eliquis for over 10 years. Will continue Eliquis at this time. He wants Eliquis refills sent to [facility]. Will send a refill for metoprolol. He wants refills on other medications sent to [facility]. Instructed to notify this office or EP if he has known recurrent atrial fibrillation. Cardiology follow-up 6 months, sooner if needed. Ongoing use of anticoagulation can be discussed at that time. (2) PVCs (premature ventricular contractions): Code(s): I49.3 - Ventricular premature depolarization Category: Medical Plan: Recent Holter monitor showing frequent PVCs. Last stress test ,2015 showed likely normal perfusion with diaphragmatic attenuation of the inferior wall on gated LVEF of 72%. Last echocardiogram, 2019 showed normal LVEF, 60-65% and mild LVH/mild diastolic dysfunction but otherwise unremarkable. He did have a repeat echocardiogram done yesterday however results are not available yet. Plan to call him with results. If EF is normal then plan will be to continue metoprolol to help suppress PVCs. If echo does show reduced EF or wall motion abnormality then a nuclear stress test will be repeated. (3) NSVT (nonsustained ventricular tachycardia): Code(s): I47.29 - Other ventricular tachycardia Category: Medical Plan: As above, asymptomatic (4) EVON on CPAP: Code(s): G47.33 - Obstructive sleep apnea (adult) (pediatric); Z99.89 - Dependence on other enabling machines and devices Category: Medical Plan: He reports compliance with his CPAP but says his mask is not fitting as well as it had been. He will be reaching out to accompany regarding getting a new mask. (5) Essential hypertension: Code(s): I10 - Essential (primary) hypertension Category: Medical Plan: Mild elevation today. He tells me he ran out of metoprolol. Will send a refill to the pharmacy. Plan Time spent on chart review, documentation, interview and assessment Medications: New metoprolol succinate ER 25 mg PO DAILY 90 tabs 3RF Refilled apixaban (Eliquis) 5 mg PO BID 180 tabs 3RF Coding Level of Care Code Est Pt Level 4 (71658) Complex EM visit Add On G2211 Diagnoses Paroxysmal atrial fibrillation I48.0 PVCs (premature ventricular contractions) I49.3 NSVT (nonsustained ventricular tachycardia) I47.29 EVON on CPAP G47.33; Z99.89 Essential hypertension I10 Time Spent (min) 32
== END 2024-12-06 10:17 | disposition home or self-care (01) ==
PROVIDERS: PCP Nurse Practitioner Family; Visit Provider Nurse Practitioner Family
DX: I48.0 Paroxysmal atrial fibrillation (principal); I49.3 Ventricular premature depolarization; I47.29 Other ventricular tachycardia; G47.33 Obstructive sleep apnea (adult) (pediatric); Z99.89 Dependence on other enabling machines and devices; I10 Essential (primary) hypertension
CPT/HCPCS: 99214; G2211

== ENCOUNTER → 2024-12-06 09:32 | Outpatient (BNVA) | payer MEDICARE, BC, SELFPAY | PROVIDERS: PCP Nurse Practitioner Family; Visit Provider Nurse Practitioner Family | DX: I48.0 Paroxysmal atrial fibrillation (principal); I49.3 Ventricular premature depolarization; I47.29 Other ventricular tachycardia; I10 Essential (primary) hypertension; G47.33 Obstructive sleep apnea (adult) (pediatric); Z99.89 Dependence on other enabling machines and devices | CPT/HCPCS: 99212 ==

== ENCOUNTER 2024-12-17 09:38 | Outpatient (REF) | payer MEDICARE, BC, SELFPAY ==
--- OUTSIDE RECORDS SUMMARY | 2024-12-17 10:15 | XMS_ITS ---
Author Organization [facility] Address [address] [place] [address] Care Team Providers Care Overedger Name Role Phone JACEREBEKAH TUBBS Primary Care Provider UnavailHarinder Medrano Jr REASON FOR VISIT COLON SCREENING Encounters Encounter Location Date Provider Diagnosis [facility] [address] [place] [address] [address] [place] [address] 10/21/2024 Harinder Ta Jr PLAN OF TREATMENT Next Appt Details Provider Name:Harinder craig Jr, 01/13/2025 10:20:00 AM, [address] [place] [address], [address], [place], [address],
--- OUTSIDE RECORDS SUMMARY | 2024-12-17 10:15 | XMS_ITS | Patient Health Record ---
Author Organization [facility] Address [address] [place] [address] Care Team Providers Care Hollow Ware Maker Name Role Phone Kristian Goldman Primary Care Provider Unav ailable Black, Mayra Unavailable [phone] Allergies No Known Allergies Reason For Referral [...] Problem Status W/U Status Risk Notes Problem [id number] Ulcer of left heel and midfoot, limited to breakdown of skin (L97.421) Active confirmed Plan Of Treatment Pending Test Test Name Order Date *Liver Function Test (LFT) 02/26/2015 [id number] NAIL, 6 OR MORE 02/26/2015 [id number] NAIL, 6 OR MORE 06/01/2015 [id number] NAIL, 6 OR MORE 10/27/2022 [id number] NAIL, 6 OR MORE 08/24/2015 [id number] NAIL, 6 OR MORE 11/30/2015 [id number] NAIL, 6 OR MORE 05/30/2016 [id number] NAIL, 6 OR MORE 09/01/2016 [id number] NAIL, 6 OR MORE 02/02/2017 [id number] NAIL, 6 OR MORE 08/03/2017 [id number] NAIL, 6 OR MORE 02/01/2018 [id number] NAIL, 6 OR MORE 09/06/2018 [id number] NAIL, 6 OR MORE 01/20/2022 67876- Debride <25 sq cm 10/27/2022 42692- Debride <25 sq cm 06/01/2015 20127- Debride <25 sq cm 02/26/2015 Insurance Providers Payer Name Payer Address Payer Phone Subscriber Number Group Number Insured Name Patient Relationship to Insured Coverage Start Date Coverage End Date Medicare National Govt Svcs Inc [address] [place] [address] [id number] Tyree Ferrell Self - patient is the insured [facility] [address] [place] [address] [id number] Tyree Ferrell Self - patient is the insured Medical (General) History Medical History History ICD Code Diverticulitis Chicken pox Anxiety Measles High blood pressure Heart disease Surgical History Surgery Date(Month/Year) colonoscopy Hospitalization History Reason Date(Month/Year) [facility] for chest paim. pt was kept over nig ht for observation 06/2016
--- OUTSIDE RECORDS SUMMARY | 2024-12-17 10:16 | XMS_ITS ---
Author Organization [facility] Address [address] [place] [address] Care Team Providers Care Hot Metal Mixer Operator Name Role Phone JACEREBEKAH TUBBS Primary Care Provider UnavailHarinder Medrano Jr [phone] REASON FOR VISIT Pt no show Encounters Encounter Location Date Provider Diagnosis [facility] [address] [place] [address] [address] [place] [address] 10/21/2024 Harinder Ta Jr PLAN OF TREATMENT Next Appt Details Provider Name:Harinder craig Jr, 01/13/2025 10:20:00 AM, [address] [place] [address], [address], [place], [address],
--- OUTSIDE RECORDS SUMMARY | 2024-12-17 10:16 | XMS_ITS | Patient Health Record ---
Author Organization [facility] Address [address] [place] [address] Care Team Providers Care Plastic Surgeon Name Role Phone REBEKAH LYNN Primary Care [...] Code Notes Problem Diverticulitis (562.11) Active confirmed 981015877 Problem Rectal bleeding (569.3) Active confirmed 59425349 Encounters Encounter Location Date Provider Diagnosis [facility] [address] [place] [address] 10/21/2024 Harinder Ta Jr [facility] [address] [place] [address] 10/21/2024 Harinder Ta Jr PLAN OF TREATMENT Future Test Test Name Order Date COLONOSCOPY 05/30/2014 Next Appt Details Provider Name:Harinder craig Jr, 01/13/2025 10:20:00 AM, [address], [address], [place], [address], Insurance Providers Payer Name Payer Address Payer Phone Subscriber Number Group Number Insured Name Patient Relationship to Insured Coverage Start Date Coverage End Date MEDICARE OF [place] [address] [place] [address] [phone] [id number] ANSLEY GARCIA Self - patient is the insured [facility] [address] [place], [place] [id number] ANSLEY GARCIA Self - patient is the insured MEDICAL (GENERAL) HISTORY Medical History History ICD Code colonoscopy 04-15-2009 colon polyp diverticulitis anxiety Denies PR,DM,CVA,Lung disease,renal dise ase
== END 2024-12-17 09:39 | disposition home or self-care (01) ==
LOC: HO.SH 09:38
PROVIDERS: Visit Provider Nurse Practitioner Family
DX: Z01.118 Encounter for examination of ears and hearing with other abnormal findings (principal); H90.3 Sensorineural hearing loss, bilateral
CPT/HCPCS: 92557

== ENCOUNTER → 2024-12-27 08:55 | Outpatient (AMB) | payer BC, SELFPAY ==
--- NOTE | 2024-12-27 08:59 | A.OFFVIS_ITS ---
Vital Signs 12/27/24 08:59 Height 6 ft 1 in Weight 283 lb BMI 37.3 BP 152/82 H Blood Pressure Location Lt brachial Position Sitting Pulse 78 Pulse Source Pulse Oximeter Pulse Oximetry (%) 96 Oxygen Delivery Method Room Air Intake Visit Reasons: 1yr follow up sleep Reclamation Worker Required: No Accompanied by: Self / Same As Patient Allergies No Known Allergies [No Known Allergies*] Allergy (Verified 12/27/24 09:03) Medication List - Last Reconciled 12/27/24 by Evi Young PA-C apixaban (Eliquis) 5 mg PO BID betamethasone dipropionate 0.05% 1 appl topical DAILY PRN fesoterodine ER 8 mg PO DAILY 30 days magnesium oxide 400 mg PO DAILY MDD 400mg metoprolol succinate ER 25 mg PO DAILY paroxetine HCl 20 mg PO DAILY pyridoxine (vitamin B6) 250 mg PO DAILY MDD 250mg HPI Comments Details: 69 year old male with EVON is here for a 1 year follow up. EVON Compliance Report 08/2024- 12/19/2024 >4 hours 90days 100% Avg total 7 hours 4 min Press [id number] Leaks 39-103 max AHI 1.2 He washes his mask, changes the filters and cleans the tubing as needed. He just ordered a new mask, old one had lots of leaks and the straps were worn. Sleep is very good except that he wakes up for the bathroom 2-3 times as he has OAB and managed by Urology. He drinks 16 oz of coffee a day in the morning. His STM is poor and forgets why he entered a room, or why he opened the refrigerator, and keeping appointments. He is still driving and gets confused when going from place A to place B. He is depressed, grieving the loss of his who recently passed. He attends a support group once a week and declines one on one counseling today. He is working through this process with the people in his [place]. His daughter lives with him with his 4 grand kids and they keep him active. His diet is okay, he is maintaining his weight to 279- 282, he drinks a lot of water around 30 oz a day and walks occasionally due to the weather. He needs hearing aids, and will f/u with ENT. His BP is elevated today and taking his BB as prescribed. [facility] Medical History Morbid obesity Weak urinary stream Incomplete emptying of bladder Essential hypertension EVON on CPAP Paroxysmal atrial fibrillation Surgical History History of tonsillectomy Family History Father Heart attack Prostate cancer Mother Heart disease Son Substance use disorder Daughter Substance use disorder Sister Mental health disorder Social History Housing: House Are you a primary clinical care manager to a significant other at home: No Do you presently have visiting nurse or other home services: No Alcohol intake: never Patient Tobacco Use Status: Former Tobacco user Years Smoked: 10 +/- e-Cigarette/Vaping Use: Never Used Second Hand Smoke Exposure: No Advance Directives Date on File: 01/22/16 service: Yes Current occupational status: retired Cognitive needs: No Hearing needs: No Vision needs: No Review of Systems Const All systems reviewed & are unremarkable except as noted in HPI and below Physical Exam Vital Signs: Last Vital Signs Pulse 78 12/27/24 08:59 BP 152/82 H 12/27/24 08:59 Pulse Ox 96 12/27/24 08:59 Oxygen Delivery Method Room Air 12/27/24 08:59 BMI result Body Mass Index 37.3 Const General: cooperative and no acute distress Nutritional Appearance: other (BMI is 37) Orientation/consciousness: patient oriented x3 HEENT Face and sinus: Yes normal facial exam and Yes face symmetric Mouth: restricted motion (unable to extend) Throat: Yes other ([place] score of 4) Eyes Pupils: Equal, round and reactive pupils present Resp Effort & Inspection: normal respiratory effort and able to speak in complete sentences Neuro General: patient oriented x3 Cranial nerves: Yes CN's II-XII intact bilaterally, Yes Facial sensation intact/muscles of mastication intact, Yes Equal, round and reactive pupils present, Yes Normal accommodation reflex present, Yes Nystagmus not present, Yes Normal facial strength present, Yes Midline tongue present, Yes Ability to bilaterally rotate head present and Yes Ability to bilaterally elevate shoulders present Gait exam (Neuro): Normal gait present Motor exam (neuro): 5/5 motor strength present throughout and no tremor noted Deep tendon reflexes (DTR's): Right triceps reflex intensity grade: 2+, Left triceps reflex intensity grade: 2+, Rt Biceps (C5, C6): 2+, Left biceps reflex intensity grade: 2+, Right brachioradialis reflex intensity grade: 2+, Left brachioradialis reflex intensity grade: 2+, Right patellar reflex intensity grade: 2+ and Left patellar reflex intensity grade: 2+ Psych Thought process: Normal thought process present Thought content: Normal thought content present Results Reviewed Results Reviewed: EVON Compliance Report >4 hours 90 days 100% Avg total usage 7hours and 4min press [id number] Leask 39-103 AHI 1.2 Assessment & Plan Assessment & Plan (1) Low back pain radiating to both legs: Code(s): M54.50 - Low back pain, unspecified; M79.604 - Pain in right leg; M79.605 - Pain in left leg Category: Medical (2) Fatigue due to sleep pattern disturbance: Code(s): R53.83 - Other fatigue; G47.9 - Sleep disorder, unspecified Category: Medical (3) EVON on CPAP: Code(s): G47.33 - Obstructive sleep apnea (adult) (pediatric); Z99.89 - Dependence on other enabling machines and devices Category: Medical (4) Loss of hearing: Code(s): H91.90 - Unspecified hearing loss, unspecified ear Category: Medical Qualifiers: Hearing loss type: sensorineural Laterality: bilateral Qualified Code(s): H90.3 - Sensorineural hearing loss, bilateral (5) Otalgia of left ear: Code(s): H92.02 - Otalgia, left ear Category: Medical Plan Advised patient to continue to use CPAP at [id number] as patient experiences good clinical effects. Continue to have monthly B12 injection and monitor the levels B12 is 190 per last Labs. Complete labs F/U with ENT for hearing aids. Continue with Wt reduction advised. F/U in 3 months for memory issues. Orders: Referrals Ear/Nose/Throat Referral G47.33 - Obstructive sleep apnea (adult) (pediatric), H91.90 - Unspecified hearing loss, unspecified ear, H92.02 - Otalgia, left ear, Z99.89 - Dependence on other enabling machines and devices Medications: New magnesium oxide 400 mg PO DAILY 30 tabs 3RF sleep MDD 400mg G47.9 - Sleep disorder, unspecified, R53.83 - Other fatigue pyridoxine (vitamin B6) 250 mg PO DAILY 30 tabs 2RF cramps MDD 250mg M54.50 - Low back pain, unspecified, M79.604 - Pain in right leg, M79.605 - Pain in left leg pyridoxine (vitamin B6) 100 mg (0.4 x 250 mg) PO DAILY 30 tabs 2RF cramps MDD 250mg M54.50 - Low back pain, unspecified, M79.604 - Pain in right leg, M79.605 - Pain in left leg Patient Instructions: Sleep Hygiene Provided today, ensure compliance of CPAP and weight reduction. Proxismal Atrial Fribrillaion and HTN. The #1 modifiable RF for CV events is good blood pressure control. Will evaluate for cognitive decline/ memory issues next visit, after getting hearing aids. Coding Level of Care Code Est Pt Level 4 (59110) Diagnoses Low back pain radiating to both legs M54.50; M79.604; M79.605 Fatigue due to sleep pattern disturbance R53.83; G47.9 EVON on CPAP G47.33; Z99.89 Sensorineural hearing loss (SNHL) of both ears H90.3 Hearing loss type: sensorineural Laterality: bilateral Otalgia of left ear H92.02 Time Spent (min) 30 Comment Worsening
--- OUTSIDE RECORDS SUMMARY | 2024-12-27 09:13 | XMS_ITS ---
Author Organization [facility] Address [address] [place] [address] Care Team Providers Care Circus Rider Name Role Phone ILAREBEKAH JEONG Primary Care Provider UnavailHarinder Medrano Jr REASON FOR VISIT COLON SCREENING Encounters Encounter Location Date Provider Diagnosis [facility] [address] [place] [address] 10/21/2024 Harinder Ta Jr PLAN OF TREATMENT Next Appt Details Provider Name:Harinder craig Jr, 01/13/2025 10:20:00 AM, [address] [place] [address], [address], [place], [address],
--- OUTSIDE RECORDS SUMMARY | 2024-12-27 09:13 | XMS_ITS | Patient Health Record ---
Author Organization [facility] Address [address] [place] [address] Care Team Providers Care Plumbing Contractor Name Role Phone Kristian Goldman Primary Care Provider Unav ailable Black, Mayra Unavailable [phone] Allergies No Known Allergies Reason For Referral [...] Problem Status W/U Status Risk Notes Problem 13848858 Ulcer of left heel and midfoot, limited to breakdown of skin (L97.421) Active confirmed Plan Of Treatment Pending Test Test Name Order Date *Liver Function Test (LFT) 02/26/2015 [id number] NAIL, 6 OR MORE 02/26/2015 [id number] NAIL, 6 OR MORE 06/01/2015 [id number] NAIL, 6 OR MORE 10/27/2022 [id number] NAIL, 6 OR MORE 08/24/2015 [id number] NAIL, 6 OR MORE 11/30/2015 [id number] NAIL, 6 OR MORE 05/30/2016 [id number] NAIL, 6 OR MORE 09/01/2016 [id number] NAIL, 6 OR MORE 02/02/2017 [id number] NAIL, 6 OR MORE 08/03/2017 [id number] NAIL, 6 OR MORE 02/01/2018 [id number] NAIL, 6 OR MORE 09/06/2018 [id number] NAIL, 6 OR MORE 01/20/2022 90420- Debride <25 sq cm 10/27/2022 84541- Debride <25 sq cm 06/01/2015 91056- Debride <25 sq cm 02/26/2015 Insurance Providers Payer Name Payer Address Payer Phone Subscriber Number Group Number Insured Name Patient Relationship to Insured Coverage Start Date Coverage End Date Medicare National [employer] [address] [facility] [place] [address] [id number] Tyree Ferrell Self - patient is the insured [facility] [address] [place] [address] [id number] Tyree Ferrell Self - patient is the insured Medical (General) History Medical History History ICD Code Diverticulitis Chicken pox Anxiety Measles High blood pressure Heart disease Surgical History Surgery Date(Month/Year) colonoscopy Hospitalization History Reason Date(Month/Year) [facility] for chest paim. pt was kept over nig ht for observation 06/2016
--- OUTSIDE RECORDS SUMMARY | 2024-12-27 09:13 | XMS_ITS | Patient Health Record ---
Author Organization [facility] Address [address] [place] [address] Care Team Providers Care Personal Injury Legal Assistant Name Role Phone REBEKAH LYNN Primary Care Provider Harinder Lerma Jr [phone] REASON FOR REFERRAL No Information MEDICATIONS Medication [...] Code Notes Problem Diverticulitis (562.11) Active confirmed 392719902 Problem Rectal bleeding (569.3) Active confirmed 67768703 Encounters Encounter Location Date Provider Diagnosis [facility] [address] [place] [address] 10/21/2024 Harinder Ta Jr [facility] [address] [place] [address] 10/21/2024 Harinder Ta Jr PLAN OF TREATMENT Future Test Test Name Order Date COLONOSCOPY 05/30/2014 Next Appt Details Provider Name:Harinder craig Jr, 01/13/2025 10:20:00 AM, [address], [address], [place], [address], Insurance Providers Payer Name Payer Address Payer Phone Subscriber Number Group Number Insured Name Patient Relationship to Insured Coverage Start Date Coverage End Date MEDICARE OF [place] [address] [place] [address] [phone] [id number] ANSLEY GARCIA Self - patient is the insured [facility] [address] [place], [place] [id number] [phone] [id number] ANSLEY GARCIA Self - patient is the insured MEDICAL (GENERAL) HISTORY Medical History History ICD Code colonoscopy 04-15-2009 colon polyp diverticulitis anxiety Denies [place],DM,CVA,Lung disease,renal dise ase
--- OUTSIDE RECORDS SUMMARY | 2024-12-27 09:13 | XMS_ITS ---
Author Organization [facility] Address [address] [place] [address] Care Team Providers Care Irrigation Equipment Installer Name Role Phone JACEREBEKAH TUBBS Primary Care Provider UnavailHarinder Medrano Jr REASON FOR VISIT Pt no show Encounters Encounter Location Date Provider Diagnosis [facility] [address] [place] [address] [address] [place] [address] 10/21/2024 Harinder Ta Jr PLAN OF TREATMENT Next Appt Details Provider Name:Harinder craig Jr, 01/13/2025 10:20:00 AM, [address] [place] [address], [address], [place], [address],
== END | disposition home or self-care (01) ==
PROVIDERS: PCP Nurse Practitioner Family; Visit Provider Physician Assistant Medical
CPT/HCPCS: 99214

== ENCOUNTER → 2024-12-27 08:55 | Outpatient (BNVA) | payer BC, SELFPAY | PROVIDERS: PCP Nurse Practitioner Family; Visit Provider Physician Assistant Medical ==

== ENCOUNTER 2025-01-07 06:18 | Outpatient (REF) | payer BC, SELFPAY ==
[2025-01-07 09:54] LABS: MANUAL DIFF FLAG NO
[2025-01-07 09:59] LABS: Basophils Percent Auto 0.9 % (0-2); Eosinophils Absolute Auto 0.2 X10*3/uL (0.0-0.4); Eosinophils Percent Auto 4.3 % (0-4); Hematocrit 44.9 % (42.0-52.0); Hemoglobin 15.4 g/dl (14.0-18.0); Imm Gran Abs Auto 0.01 X10*3/uL (0.00-0.03); Imm Gran Pct Auto 0.2 % (0.0-0.4); Lymphocytes Absolute Auto 0.9 X10*3/uL (1.2-4.9); Mean Corpuscular HGB Conc 34.3 g/dl (31.0-36.0); Mean Corpuscular Hemoglobin 31.6 pg (27.0-33.0); Mean Corpuscular Volume 92.2 fL (80.0-98.0); Mean Platelet Volume 9.7 fL (9.4-12.4); Monocytes Absolute Auto 0.3 X10*3/uL (0.1-1.2); Monocytes Percent Auto 7.7 % (2-11); Neutrophils Absolute Auto 2.9 x10*3/uL (2.0-8.3); Neutrophils Percent Auto 65.9 % (45-73); Platelet Count 196 X10*3/uL (160-400); Red Blood Count 4.87 X10*6/uL (4.60-5.80); Red Cell Distribution Width 12.8 % (11.0-16.0); White Blood Count 4.4 X10*3/uL (4.8-10.8)
[2025-01-07 10:04] LABS: Appearance Urine Clear; Color Urine Yellow; Glucose Urine UA Negative (Negative); Leukocyte Esterase Urine Negative (Negative); Nitrite Urine Negative (Negative); Specific Gravity - Urine 1.015 (1.005-1.025); Urine Blood Negative (Negative); Urine Ketones Negative (Negative); Urine Protein Negative (Neg-Trace)
[2025-01-07 10:39] LABS: Alanine Aminotransferase 19 U/L (0-40); Albumin Level 4.2 g/dL (3.5-5.0); Alkaline Phosphatase 59 U/L (39-117); Anion Gap 13 (12-20); Aspartate Amino Transferase 23 U/L (5-37); Bilirubin Total 0.9 mg/dL (0.0-1.0); Blood Urea Nitrogen 14 mg/dL (9-16); Carbon Dioxide 23 mmol/L (22-29); Chloride 108 mmol/L (96-108); Cholesterol 159 mg/dL (<200); Estimated Glomerular Filt Rate > 60; Glucose Fasting 103 mg/dL (60-99); HDL Cholesterol 44 mg/dL (>40); LDL Cholesterol Calculated 103 mg/dL (<100); Potassium 4.1 mmol/L (3.3-5.1); Sodium 140 mmol/L (135-145); Total Protein 7.2 g/dL (6.5-8.0); Triglycerides 63 mg/dL (<150)
[2025-01-07 10:40] LABS: TSH reflex Free T4 2.78 uIU/mL (0.32-4.0)
[2025-01-07 10:58] LABS: Folate 7.5 ng/mL (> or = 4.0); Vitamin B12 274 pg/mL (200-900)
== END 2025-01-07 06:19 | disposition home or self-care (01) ==
LOC: HO.HMGCLDS 06:18
PROVIDERS: PCP Nurse Practitioner Family; Visit Provider Nurse Practitioner Family
DX: E66.01 Morbid (severe) obesity due to excess calories (principal); E53.8 Deficiency of other specified B group vitamins; Z13.29 Encounter for screening for other suspected endocrine disorder
CPT/HCPCS: 36415; 80053; 80061; 81003; 82607; 82746; 84443; 85025

== ENCOUNTER 2025-01-15 09:47 | Outpatient (AMB) | payer MEDICARE, BC, SELFPAY ==
--- NOTE | 2025-01-15 10:00 | A.OFFVIS_ITS ---
Intake Visit Reasons: 2M med follow up- Toviaz Intake Note: Patient is present for 2M MED REVIEW Urology Medication:VITAMIN B6 Antibiotic Allergy:NONE Blood Thinner:APIXABAN Vehicle Maintenance Technician Required: No Allergies No Known Allergies [No Known Allergies*] Allergy (Verified 01/15/25 10:01) HPI Comments Details: Tyree GARCIA is a very pleasant male. He is a patient of Dr Bryan perez. He is seen for the following urologic conditions. - lower urinary tract symptoms - urinary urgency Two month follow-up trial Toviaz Failed oxybutynin trial States minimal improvement from Toviaz Trial Myrbetriq If this fails would recommend Botox Open bladder neck on prior cystoscopy - bladder instability Has previously failed oxybutynin 10 mg, terazosin, tolterodine Nocturia x3 Persistent urge frequency but does note that he drinks too much coffee Continues with EVON mask and has been thirsty at night Lower Urinary Tract Symptoms: Current visit is for further evaluation of, lower urinary tract symptoms, predominate obstructive symptoms. Current treatment includes medication, alpha dayo - tamsulosin 0.4 mg with tolterodine Prostate Symptom Score 10/19 , Moderate (9-19), Bother 3. Symptoms include 10/19 , incomplete emptying, weak stream, nocturia (>2), and are progressing. PSA 09/06 0.2, 10/11 0.3, 01/13 0.2 - family history of prostate cancer with father Prostate volume 30-50gm. [facility] Medical History Morbid obesity Weak urinary stream Incomplete emptying of bladder Essential hypertension EVON on CPAP Paroxysmal atrial fibrillation Surgical History History of tonsillectomy Family History Father Heart attack Prostate cancer Mother Heart disease Son Substance use disorder Daughter Substance use disorder Sister Mental health disorder Social History Housing: House Are you a primary career services assistant to a significant other at home: No Do you presently have visiting nurse or other home services: No Alcohol intake: never Patient Tobacco Use Status: Former Tobacco user Years Smoked: 10 +/- e-Cigarette/Vaping Use: Never Used Second Hand Smoke Exposure: No Advance Directives Date on File: 01/22/16 service: Yes Current occupational status: retired Cognitive needs: No Hearing needs: No Vision needs: No Review of Systems Const Denies chills and Denies fever(s) Card Reports no additional complaints and Denies syncope Resp Denies cough GI Denies abdominal pain and Denies heartburn Reports as per HPI and Denies change in libido Neuro Denies syncope Psych Denies change in libido Endo Denies change in libido Physical Exam Const General: cooperative, healthy appearing, comfortable and no acute distress Orientation/consciousness: patient oriented x3 HEENT Face and sinus: Yes normal facial exam Mouth: moist mucous membranes Neck Neck: Yes normal visual inspection, Yes full ROM and Yes trachea midline Chest Chest palpation & inspection: normal inspection of the chest Resp Effort & Inspection: normal respiratory effort, able to speak in complete sentences and no respiratory distress GI Inspection: Yes normal to inspection Back/Spine/Pelvis Cervical Spine: normal cervical lordosis Thoracic/Lumbar Spine: thoracic and lumbar spine normal to inspection Skin General skin exam: no rashes or lesions noted Neuro General: patient oriented x3, gait normal, tone normal and moves all extremities Extrem General: Yes normal to inspection and Yes capillary refill normal Results AMB Urinalysis, Automated UA Leukoctes 0 Adam/uL Last Edit by CHAVO Calderon on 01/15/25 10:09 UA Nitrite Negative Last Edit by CHAVO Calderon on 01/15/25 10:09 UA Urobilinogen 0.2 mg/dL Last Edit by CHAVO Calderon on 01/15/25 10:0 9 UA Protein 0 mg/dL Last Edit by CHAVO Calderon on 01/15/25 10:09 UA pH 6.5 Last Edit by CAHVO Calderon on 01/15/25 10:09 UA Blood 0 Juan/uL Last Edit by CHAVO Calderon on 01/15/25 10:09 UA Specific [place] 1.010 Last Edit by CHAVO Calderon on 01/15/25 10: 09 UA Ketone Negative Last Edit by CHAVO Calderon on 01/15/25 10:09 UA Bilirubin 0 mg/dL Last Edit by CHAVO Calderon on 01/15/25 10:09 UA Glucose 0 mg/dL Last Edit by CHAVO Calderon on 01/15/25 10:09 Results Reviewed Results Reviewed: Laboratory Last Values Urine pH (Auto) 6.5 01/15/25 10:08 Specific [place] (Auto) 1.010 01/15/25 10:08 Urine Protein (Auto) 0 mg/dL 01/15/25 10:08 Glucose (UA)(Auto) 0 mg/dL 01/15/25 10:08 Urine Ketones (Auto) Negative 01/15/25 10:08 Urine Blood (Auto) 0 Juan/uL 01/15/25 10:08 Urine Nitrite (Auto) Negative 01/15/25 10:08 Urine Bilirubin (Auto) 0 mg/dL 01/15/25 10:08 Urine Urobilinogen (Auto) 0.2 mg/dL 01/15/25 10:08 Leukocyte Esterase (Auto) 0 Adam/uL 01/15/25 10:08 Assessment & Plan Assessment & Plan (1) BPH (benign prostatic hyperplasia): Code(s): N40.0 - Benign prostatic hyperplasia without lower urinary tract symptoms Category: Medical (2) Weak urinary stream: Code(s): R39.12 - Poor urinary stream Category: Medical Plan Trial Myrbetriq Orders: Orders AMB Urinalysis Automated Today Z13.9 - Encounter for screening, unspecified Medications: New mirabegron ER (Myrbetriq) 25 mg PO DAILY 30 days 30 tabs 1RF N30.10 - Interstitial cystitis (chronic) without hematuria, N32.81 - Overactive bladder, R35.1 - Nocturia, R39.15 - Urgency of urination Patient Instructions: This note is constructed using voice recognition software. While every effort has been made to ensure accuracy dry cell assembly supervisor errors may have been included. Imaging studies, laboratory and physical exam results were discussed and reviewed in detail. No major barriers to patient understanding were identified. An opportunity to ask questions regarding the treatment plan was provided. All questions were answered. The patient expressed understanding and agreement with the above treatment plan. The patient is aware they should contact our office by phone for worsening of their current condition or the appearance of new urologic symptoms. Compliance is encouraged with any medications and followup testing that is ordered. It is a privilege to participate in the urologic care of your patient. If you have any questions or concerns regarding treatment for the above conditions, or other urologic issues, please do not hesitate to contact me. The office telephone contact is [phone]. Sincerely, Dr Farzad Ivan MD, KEJ[facility] - Urology Compassionate Specialist Care for the Genitourinary System Coding Level of Care Code Est Pt Level 4 (77711) Diagnoses BPH (benign prostatic hyperplasia) N40.0 Weak urinary stream R39.12
--- OUTSIDE RECORDS SUMMARY | 2025-01-15 11:26 | XMS_ITS ---
Author Organization [facility] Address [address] [place] [address] Care Team Providers Care Dry Cleaner Helper Name Role Phone JACEARLEY REBEKAH Primary Care Provider Harinder Lerma Jr [phone] REASON FOR VISIT Pt no show Encounters Encounter Location Date Provider Diagnosis [facility] [address] [place] [phone] 10/21/2024 Harinder Ta Jr PLAN OF TREATMENT Next Appt Details Provider Name:Harinder craig Jr, 02/05/2025 02:00:00 PM, [address] [place] [address] , [place], [place], [phone],
--- OUTSIDE RECORDS SUMMARY | 2025-01-15 11:26 | XMS_ITS | Patient Health Record ---
Author Organization [facility] Address [address] [place] [address] Care Team Providers Care Aircraft Loadmaster Superintendent Name Role Phone Kristian Goldman Primary Care Provider Unav ailable Black, Mayra Unavailable [phone] Allergies No Known Allergies Reason For Referral [...] Problem Status W/U Status Risk Notes Problem 57835547 Ulcer of left heel and midfoot, limited to breakdown of skin (L97.421) Active confirmed Plan Of Treatment Pending Test Test Name Order Date *Liver Function Test (LFT) 02/26/2015 [id number] NAIL, 6 OR MORE 02/26/2015 [id number] NAIL, 6 OR MORE 06/01/2015 [id number] NAIL, 6 OR MORE 10/27/2022 [id number] NAIL, 6 OR MORE 09/06/2018 [id number] NAIL, 6 OR MORE 08/24/2015 [id number] NAIL, 6 OR MORE 11/30/2015 [id number] NAIL, 6 OR MORE 05/30/2016 [id number] NAIL, 6 OR MORE 09/01/2016 [id number] NAIL, 6 OR MORE 02/02/2017 [id number] NAIL, 6 OR MORE 08/03/2017 [id number] NAIL, 6 OR MORE 02/01/2018 [id number] NAIL, 6 OR MORE 01/20/2022 28542- Debride <25 sq cm 10/27/2022 68696- Debride <25 sq cm 06/01/2015 58297- Debride <25 sq cm 02/26/2015 Insurance Providers Payer Name Payer Address Payer Phone Subscriber Number Group Number Insured Name Patient Relationship to Insured Coverage Start Date Coverage End Date Medicare National [employer] [address] [place] [address] [id number] Tyree Ferrell Self - patient is the insured [facility] [address] [place] [address] [id number] Tyree Ferrell Self - patient is the insured Medical (General) History Medical History History ICD Code Diverticulitis Chicken pox Anxiety Measles High blood pressure Heart disease Surgical History Surgery Date(Month/Year) colonoscopy Hospitalization History Reason Date(Month/[place] [facility] [place] pt was kept over [place] for observation 06/2016
--- OUTSIDE RECORDS SUMMARY | 2025-01-15 11:26 | XMS_ITS ---
Author Organization [facility] Address [address] [place] [phone] Care Team Providers Care Sports Book Server Name Role Phone ILAADENIKE REBEKAH Primary Care Provider Harinder Lerma Jr REASON FOR VISIT COLON SCREENING Encounters Encounter Location Date Provider Diagnosis [facility] [address] [place] [phone] 10/21/2024 Harinder Ta Jr PLAN OF TREATMENT Next Appt Details Provider Name:Harinder craig Jr, 02/05/2025 02:00:00 PM, [address] [place] [address] , [place], [place], [phone],
--- OUTSIDE RECORDS SUMMARY | 2025-01-15 11:26 | XMS_ITS ---
Author Organization [facility] Address [address] [place] [address] Care Team Providers Care Surface Logging Systems Logger Name Role Phone JACEREBEKAH TUBBS Primary Care [...] 01/13/2025 Encounters Encounter Location Date Provider Diagnosis [facility] [address] [place] [address] 01/13/2025 Harinder Ta Jr Colon cancer screening Z12.11 ASSESSMENTS Encounter Date Diagnosis Assessment Notes Treatment Notes Treatment Clinical Notes 01/13/2025 Colon cancer screening (ICD-10 - Z12.11) PLAN OF TREATMENT Next Appt Details Provider Name:Harinder craig Jr, 02/05/2025 02:00:00 PM, [address] [place] [address], [phone],
--- OUTSIDE RECORDS SUMMARY | 2025-01-15 11:26 | XMS_ITS | Patient Health Record ---
Author Organization [facility] Address [address] [place] [address] Care Team Providers Care Catalyst Unit Operator Name Role Phone SAMANTHADanuta REBEKAH Primary Care Provider Harinder Lerma Jr Unavailable [phone] ALLERGIES No Known Allergies REASON FOR REFERRAL [...] Notes Problem Rectal bleeding (569.3) Active confirmed 33842897 Problem Diverticulitis (562.11) Active confirmed 531080980 VITAL SIGNS Temperature 97.7 degrees Fahrenheit 01/13/2025 Blood pressure diastolic 01 mm Hg 01/13/2025 Height 72 in 01/13/2025 Blood pressure systolic 001 mm Hg 01/13/2025 Weight 283.4 lbs 01/13/2025 BMI 38.43 kg/m2 01/13/2025 Encounters Encounter Location Date Provider Diagnosis [facility] [address] [place] [phone] 10/21/2024 Harinder Ta Jr [facility] [address] [place] [phone] 01/13/2025 Harinder Ta Jr Colon cancer screening Z12.11 [facility] [address] [place] [phone] 10/21/2024 Harinder Ta Jr ASSESSMENTS Encounter Date Diagnosis Assessment Notes Treatment Notes Treatment Clinical Notes 01/13/2025 Colon cancer screening (ICD-10 - Z12.11) PLAN OF TREATMENT Future Test Test Name Order Date COLONOSCOPY 05/30/2014 Next Appt Details Provider Name:Harinder craig Jr, 02/05/2025 02:00:00 PM, [address] [place] [address] , [place], [place], [phone], Insurance Providers Payer Name Payer Address Payer Phone Subscriber Number Group Number Insured Name Patient Relationship to Insured Coverage Start Date Coverage End Date MEDICARE OF [place] [address] [facility] [place] [address] [id number] ANSLEY GARCIA Self - patient is the insured [facility] [address] [place], [place] [id number] [phone] [id number] ANSLEY GARCIA Self - patient is the insured MEDICAL (GENERAL) HISTORY Medical History History ICD Code colonoscopy 04-15-2009 colon polyp diverticulitis anxiety Denies HI,DM,CVA,Lung disease,renal dise ase Atrial fibrillation
== END 2025-01-15 10:36 | disposition home or self-care (01) ==
PROVIDERS: PCP Nurse Practitioner Family; Visit Provider Urology
DX: N40.0 Benign prostatic hyperplasia without lower urinary tract symptoms (principal); R39.12 Poor urinary stream; Z13.9 Encounter for screening, unspecified
CPT/HCPCS: 99214

== ENCOUNTER → 2025-01-15 09:47 | Outpatient (BNVA) | payer MEDICARE, BC, SELFPAY | PROVIDERS: PCP Nurse Practitioner Family; Visit Provider Urology | DX: N40.1 Benign prostatic hyperplasia with lower urinary tract symptoms (principal); R39.12 Poor urinary stream; R35.1 Nocturia; N30.10 Interstitial cystitis (chronic) without hematuria; N32.81 Overactive bladder | CPT/HCPCS: 81003; 99212 ==

== ENCOUNTER 2025-02-05 12:10 | Day surgery (SDC) | payer MEDICARE, BC, SELFPAY ==
--- OUTSIDE RECORDS SUMMARY | 2025-01-13 12:55 | XMS_ITS ---
Author Organization [facility] Address [address] [place] [address] Care Team Providers Care Excellence Leader Name Role Phone JACEARLEY REBEKAH Primary Care Provider Harinder Lerma Jr REASON FOR VISIT Pt no show Encounters Encounter Location Date Provider Diagnosis [facility] [address] [place] [address] 10/21/2024 Harinder Ta Jr PLAN OF TREATMENT Next Appt Details Provider Name:Harinder craig Jr, 02/05/2025 02:00:00 PM, [address] [place] [address] , [place], [place], [phone],
--- OUTSIDE RECORDS SUMMARY | 2025-01-13 12:55 | XMS_ITS | Patient Health Record ---
Author Organization [facility] Address [address] [facility] [place] [address] Care Team Providers Care Textile Knitter Name Role Phone Kristian Goldman Primary Care Provider Unav ailable Black, Mayra Unavailable [phone] Allergies No Known Allergies Reason For Referral [...] Problem Status W/U Status Risk Notes Problem [id number] Ulcer of left heel and midfoot, limited to breakdown of skin (L97.421) Active confirmed Plan Of Treatment Pending Test Test Name Order Date *Liver Function Test (LFT) 02/26/2015 [id number] NAIL, 6 OR MORE 02/26/2015 [id number] NAIL, 6 OR MORE 06/01/2015 [id number] NAIL, 6 OR MORE 10/27/2022 [id number] NAIL, 6 OR MORE 08/24/2015 [id number] NAIL, 6 OR MORE 11/30/2015 [id number] NAIL, 6 OR MORE 05/30/2016 [id number] NAIL, 6 OR MORE 09/01/2016 [id number] NAIL, 6 OR MORE 02/02/2017 [id number] NAIL, 6 OR MORE 08/03/2017 [id number] NAIL, 6 OR MORE 02/01/2018 [id number] NAIL, 6 OR MORE 09/06/2018 [id number] NAIL, 6 OR MORE 01/20/2022 54052- Debride <25 sq cm 10/27/2022 30215- Debride <25 sq cm 06/01/2015 78334- Debride <25 sq cm 02/26/2015 Insurance Providers Payer Name Payer Address Payer Phone Subscriber Number Group Number Insured Name Patient Relationship to Insured Coverage Start Date Coverage End Date Medicare National Govt Sv[employer] [address] [facility] [place] [address] [id number] Tyree Ferrell Self - patient is the insured [facility] [address] [place] [address] [id number] Tyree Ferrell Self - patient is the insured Medical (General) History Medical History History ICD Code Diverticulitis Chicken pox Anxiety Measles High blood pressure Heart disease Surgical History Surgery Date(Month/Year) colonoscopy Hospitalization History Reason Date(Month/Year) [facility] for chest paim. pt was kept over nig ht for observation 06/2016
--- OUTSIDE RECORDS SUMMARY | 2025-01-13 12:55 | XMS_ITS ---
Author Organization [facility] Address [address] [place] [address] Care Team Providers Care Marine Welder Name Role Phone JACEREBEKAH TUBBS Primary Care Provider Harinder Lerma Jr ALLERGIES No Known Allergies REASON FOR VISIT Patient presents today for diverticulitis MEDICATIONS Medication SIG (Take, Route, Frequency, Duration) Notes Start Date End Date Status Metoprolol Succinate ER 25 MG TAKE 1 TABLET BY MOUTH DAILY Oral for 90 Days Active PARoxetine HCl 20 MG TAKE 1 TABLET BY MO UT DAILY Oral for 90 Days Active Magnesium Oxide -Mg Supplement 400 (240 Mg) MG TAKE 1 TABLET BY MOUTH DAILY FOR SLEEP Oral for 30 Days Active Fesoterodine Fumarate ER 8 MG TAKE 1 TABLET BY MOUTH DAILY Oral for 30 Days Active Vitamin B-6 100 MG TAKE 1 TABLET BY KEITH TH EVERY DAY FOR CRAMPS MAY TAKE AND ADDITIONAL TABLET MAX OF 2 TABLETS DAILY Oral for 30 Days Active Eliquis 5 MG Oral for 90 Days Active Paxil 20 MG 1 tablet in the morn ing Orally Once a day Active VITAL SIGNS Temperature 97.7 degrees Fahrenheit 01/13/20 25 Blood pressure systolic 001 mm Hg 01/13/20 25 Blood pressure diastolic 01 mm Hg 025 Height 72 in 01/13/2025 Weight 283.4 lbs 01/13/2025 BMI 38.43 kg/m2 01/13/2025 Encounters Encounter Location Date Provider Diagnosis [facility] [address] [place] [address] 01/13/2025 Harinder Ta Jr Colon cancer screening Z12.11 ASSESSMENTS Encounter Date Diagnosis Assessment Notes Treatment Notes Treatment Clinical Notes 01/13/2025 Colon cancer screening (ICD-10 - Z12.11) PLAN OF TREATMENT Next Appt Details Provider Name:Harinder craig Jr, 02/05/2025 02:00:00 PM, [address] [place] [address], [phone],
--- OUTSIDE RECORDS SUMMARY | 2025-01-13 12:55 | XMS_ITS ---
Author Organization [facility] Address [address] [place] [address] Care Team Providers Care Director Of Managed Services Name Role Phone ILAADENIKE REBEKAH Primary Care Provider Harinder Lerma Jr REASON FOR VISIT COLON SCREENING Encounters Encounter Location Date Provider Diagnosis [facility] [address] [place] [address] 10/21/2024 Harinder Ta Jr PLAN OF TREATMENT Next Appt Details Provider Name:Harinder craig Jr, 02/05/2025 02:00:00 PM, [address] [place] [address] , [place], [place], [phone],
--- OUTSIDE RECORDS SUMMARY | 2025-01-13 12:56 | XMS_ITS | Patient Health Record ---
Author Organization [facility] Address [address] [place] [address] Care Team Providers Care Assorter Laundry Name Role Phone SAMANTHADanuta REBEKAH Primary Care Provider Harinder Lerma Jr Unavailable ALLERGIES No Known Allergies REASON FOR REFERRAL No Information MEDICATIONS Medication SIG (Take, Route, Frequency, Duration) Notes Start Date End Date Status Metoprolol Succinate ER 25 MG TAKE 1 TABLET BY MOUTH DAILY Oral for 90 Days Active PARoxetine HCl 20 MG TAKE 1 TABLET BY MO UTH DAILY Oral for 90 Days Active Magnesium Oxide -Mg Supplement 400 (240 Mg) MG TAKE 1 TABLET BY MOUTH DAILY FOR SLEEP Oral for 30 Days Active Fesoterodine Fumarate ER 8 MG TAKE 1 TABLET BY MOUTH DAILY Oral for 30 Days Active Eliquis 5 MG Oral for 90 Days Active Vitamin B-6 100 MG TAKE 1 TABLET BY KEITH TH EVERY DAY FOR CRAMPS MAY TAKE AND ADDITIONAL TABLET MAX OF 2 TABLETS DAILY Oral for 30 Days Active Paxil 20 MG 1 tablet in the morn ing Orally Once a day Active IMMUNIZATIONS Vaccine Route Administration Date Status Comme nts Influenza Unknown 09/10/2024 Administered SOCIAL HISTORY Sex Assigned At : Social History Observation Description Sex Assigned At Unknown PROBLEMS Problem Type ICD Code Onset Dates Problem Status W/U Status Risk SNOMED Code Notes Problem Rectal bleeding (569.3) Active confirmed 50758780 Problem Diverticulitis (562.11) Active confirmed 534245042 VITAL SIGNS Temperature 97.7 degrees Fahrenheit 01/13/2025 Blood pressure diastolic 01 mm Hg 01/13/2025 Height 72 in 01/13/2025 Blood pressure systolic 001 mm Hg 01/13/2025 Weight 283.4 lbs 01/13/2025 BMI 38.43 kg/m2 01/13/2025 Encounters Encounter Location Date Provider Diagnosis [facility] [address] [place] [address] 10/21/2024 Harinder Ta Jr [facility] [address] [place] [address] 01/13/2025 Harinder Ta Jr Colon cancer screening Z12.11 [facility] [address] [place] [address] 10/21/2024 Harinder Ta Jr ASSESSMENTS Encounter Date Diagnosis Assessment Notes Treatment Notes Treatment Clinical Notes 01/13/2025 Colon cancer screening (ICD-10 - Z12.11) PLAN OF TREATMENT Future Test Test Name Order Date COLONOSCOPY 05/30/2014 Next Appt Details Provider Name:Harinder craig Jr, 02/05/2025 02:00:00 PM, [address] [place] [address] , [place], [place], [phone], Insurance Providers Payer Name Payer Address Payer Phone Subscriber Number Group Number Insured Name Patient Relationship to Insured Coverage Start Date Coverage End Date MEDICARE OF [place] [address] [facility] [place] [address] [id number] ANSLEY GARCIA Self - patient is the insured [facility] [address] [place], [place] [id number] ANSLEY GARCIA Self - patient is the insured MEDICAL (GENERAL) HISTORY Medical History History ICD Code colonoscopy 04-15-2009 colon polyp diverticulitis anxiety Denies [place],DM,CVA,Lung disease,renal dise ase Atrial fibrillation
[2025-02-03 15:24] VITALS: BMI 37.1
--- NOTE | 2025-02-04 11:56 | P.CONAN_ITS ---
Documented by User: Alma Olmos NP 02/04/25 11:59 HPI - Anesthesia Eval Consult details Narrative: 69yo M for Colonoscopy [place] [facility] [place] Stable at 11/2024 office visit Afib - eliquis, s/p ablation PMFSH Active Problems Active Problems: All Active Problems Fatigue due to sleep pattern disturbance (Acute) Otalgia of left ear (Acute) Excessive cerumen in both ear canals (Acute) Loss of hearing (Acute) PVCs (premature ventricular contractions) (Acute) NSVT (nonsustained ventricular tachycardia) (Acute) Bladder instability (Acute) Bilateral hip joint arthritis (Acute) Depression (Acute) Right hip pain (Acute) Left hip pain (Acute) B12 deficiency (Acute) Screening-pulmonary TB (Acute) Immunizations incomplete (Acute) Nocturia more than twice per night (Acute) Elevated TSH (Acute) Elevated blood sugar (Acute) Low back pain radiating to both legs (Acute) Urinary incontinence (Acute) Cerumen impaction (Acute) Screening PSA (prostate specific antigen) (Acute) Physical exam (Acute) Low vitamin B12 level (Acute) Fatigue (Acute) Daytime sleepiness (Acute) Incomplete emptying of bladder due to benign prostatic hyperplasia (Acute) Urinary urgency (Acute) Severe obstructive sleep apnea (Acute) Physical exam, routine (Acute) BPH (benign prostatic hyperplasia) (Acute) Morbid obesity (Acute) Weak urinary stream (Acute) Essential hypertension (Acute) EVON on CPAP (Acute) Paroxysmal atrial fibrillation (Acute) Past Medical History Medical History Depression Anxiety History of cardioversion Morbid obesity Weak urinary stream Incomplete emptying of bladder Essential hypertension EVON on CPAP Paroxysmal atrial fibrillation Family History Family History Father Heart attack Prostate cancer Mother Heart disease Son Substance use disorder Daughter Substance use disorder Sister Mental health disorder Surgical History Surgical History History of cardiac ablation for atrial fibrillation Hx of colonoscopy History of tonsillectomy History of Problems with Anesthesia: No Social History Social History Household Members: Family Housing: House Are you a primary nonfarm animal caretaker to a significant other at home: No Do you presently have visiting nurse or other home services: No Alcohol intake: never Patient Tobacco Use Status: Former Tobacco user Tobacco use type: Cigarette Years Smoked: 10 +/- e-Cigarette/Vaping Use: Never Used Second Hand Smoke Exposure: No Use of substances other than those prescribed or required for medical reasons: No Have you been hit, kicked, punched, or otherwise hurt by someone within the past year? If so, by whom?: No Are you DNR?: No Advance Directives: Yes Advance Directives Information Provided: No Advance Directives on File: Yes Advance Directives Date on File: 01/22/16 Recently lost weight without trying: No Nutrition Risks: No Nutritional Risk Poor oral hygiene: No service: Yes Current occupational status: retired Cognitive needs: No Hearing needs: No Vision needs: No Meds Allergies Allergy/AdvReac Type Severity Reaction Status Date / Time No Known Allergies Allergy Verified 02/03/25 15:28 [No Known Allergies*] Exam Height,Weight and Vital Signs: Height 6 ft 1 in Weight 127.459 kg Pertinent Lab Results Pertinent Lab Results: Laboratory Tests 01/07/25 01/07/25 06:22 06:32 WBC 4.4 L Hgb 15.4 Hct 44.9 Plt Count 196 Sodium 140 Potassium 4.1 Chloride 108 Carbon Dioxide 23 BUN 14 Creatinine 0.69 Narrative Narrative: ECHO 11/2024 Conclusions: - 1. Normal LV ejection fraction of 60 65% with mild LVH with impaired relaxation filling pattern 2. Mildly dilated left atrium 3. Calcific mitral valve changes noted with normal cardiac valvular Dopplers 4. Mildly dilated ascending aorta at 3.9 cm Holter 2023 1. Patient was monitored for total period of 3 days 2. Baseline was normal sinus rhythm with average heart of 75 beats per minute 3. Frequent PVCs noted with total burden of 2.9% with 6 small runs of nonsustained VT, longest lasting 9 beats and fastest at 152 beats per minute 4. No significant pauses noted 5. No patient reported events Assessment and Plan Assessment Anesthesia Assessment: Chart Reviewed Final Anesthetic Review History of Problems with Anesthesia: No Documented by User: China Hernandez MD 02/05/25 13:39 HPI - Anesthesia Eval Consult details Narrative: 69yo M for Colonoscopy [place] [facility] [place]. Stable at 11/2024 office visit Afib - eliquis, s/p ablation. Last dose 02/02/25 PMFSH Past Medical History Medical History Depression Anxiety History of cardioversion Morbid obesity Weak urinary stream Incomplete emptying of bladder Essential hypertension EVON on CPAP Paroxysmal atrial fibrillation Family History Family History Father Heart attack Prostate cancer Mother Heart disease Son Substance use disorder Daughter Substance use disorder Sister Mental health disorder Family history of problems with anesthesia: No Surgical History Surgical History History of cardiac ablation for atrial fibrillation Hx of colonoscopy History of tonsillectomy History of Problems with Anesthesia: No Social History Social History Household Members: Family Housing: House Are you a primary nonfarm animal caretaker to a significant other at home: No Do you presently have visiting nurse or other home services: No Alcohol intake: never Patient Tobacco Use Status: Former Tobacco user Tobacco use type: Cigarette Years Smoked: 10 +/- e-Cigarette/Vaping Use: Never Used Second Hand Smoke Exposure: No Use of substances other than those prescribed or required for medical reasons: No Have you been hit, kicked, punched, or otherwise hurt by someone within the past year? If so, by whom?: No Are you DNR?: No Advance Directives: Yes Advance Directives Information Provided: No Advance Directives on File: Yes Advance Directives Date on File: 01/22/16 Recently lost weight without trying: No Nutrition Risks: No Nutritional Risk Poor oral hygiene: No service: Yes Current occupational status: retired Cognitive needs: No Hearing needs: No Vision needs: No Meds Allergies Allergy/AdvReac Type Severity Reaction Status Date / Time No Known Allergies Allergy Verified 02/03/25 15:28 [No Known Allergies*] Exam Height,Weight and Vital Signs: Height 6 ft 1 in Weight 127.459 kg Vital Signs Temp Pulse Resp BP Pulse Ox O2 Del Method 02/05/25 12:42 97.6 F 75 20 123/81 99 Room Air Pertinent Lab Results Pertinent Lab Results: Laboratory Tests 01/07/25 01/07/25 06:22 06:32 WBC 4.4 L Hgb 15.4 Hct 44.9 Plt Count 196 Sodium 140 Potassium 4.1 Chloride 108 Carbon Dioxide 23 BUN 14 Creatinine 0.69 Airway Mallampati Class: III TM Dist: >3cm Neck ROM: Full Loose/Missing/Broken Teeth: Yes (Missing several teeth. Denies broken or loose teeth) Heart: RRR Lungs: CTAB Assessment and Plan Assessment Anesthesia Assessment: Anesthesia Plan Discussed and Chart Reviewed Final Anesthetic Review Family History of Problems with Anesthesia: No History of Problems with Anesthesia: No NPO: Yes ASA Class: III Final Preanesthetic Review: No Changes in Pt Med Stat, Meds/Allgs Chart Reviewed, Consent Obtained/Reviewed and Anes Risks/Benef Reviewed Patient Risk: Intermediate Procedure Risk: Low Assessment/Block/Sedation in SS: Assess/Block/Sedation-SS Anesthetic Plan Anesthetic Plan: TIVA Disposition: Standard PACU
[2025-02-05 12:23] VITALS: BMI 35.5
[2025-02-05 12:42] VITALS: BP 123/81; PULSE 75; RESP 20; TEMP 36.4; O2SAT 99
--- NOTE | 2025-02-05 13:11 | MHC.SHP ---
Pre-Procedural Eval Section A - 24 Hr Update-Section A only Date of Service: 02/05/25 Section B - Complete if H&P > 30 days Chief Complaint: Encounter for screening for malignant neoplasm of Details of Present Illness: see H&P no changes Relevant Family History (Specify if Yes): No Relevant Social History: None Present Medications: see Short Stay Collaborative assessment Medical History: No relevant PMH History of Previous Operations: No relevant previous surgery Allergies: Allergies Allergy/AdvReac Type Severity Reaction Status Date / Time No Known Allergies Allergy Verified 02/03/25 15:28 [No Known Allergies*] Review of Systems Sugical H&P ROS: Negative: Constitution, Cardiovascular, Respiratory, Neurological, Psychiatric, Hem-Onc, Allergic/Immunologic, Gastrointestinal, Genitourinary, Musculoskeletal, Integumentary, Endocrine and Eyes/Ears/Nose/Throat Exam Surgical H&P Exam: Normal: HEENT, Normal: Heart, Normal: Lungs, Normal: Extremities, Normal: Abdomen, Normal: Skin and Normal: Neurological Plan Diagnosis/Plan: Unchanged I have reviewed the history and physical and performed a pertinent physical examination on my patient. No changes have occurred unless specified. Time Spent With Patient Time: Total time managing care of this patient today ____ minutes.
[2025-02-05 14:02] VITALS: BP 133/67; PULSE 65; RESP 17; TEMP 37.1; O2SAT 97
[2025-02-05 14:17] VITALS: BP 148/77; PULSE 67; RESP 17; O2SAT 97
--- NOTE | 2025-02-05 14:30 | OP_ITS ---
DATE OF SERVICE: 02/05/2025 SURGEON: Harinder Ta MD INDICATIONS: Colon cancer screening. PREOPERATIVE DIAGNOSIS: POSTOPERATIVE DIAGNOSIS: PROCEDURE PERFORMED: Colonoscopy to the cecum. ESTIMATED BLOOD LOSS: COMPLICATIONS: ANESTHESIA: Monitored anesthesia care. ASSISTANTS: SPECIMENS: DESCRIPTION OF PROCEDURE: A history and physical were performed. The risks and benefits of the procedure were explained to the patient. Informed consent was obtained. The patient was placed in the left lateral decubitus position. A digital rectal exam was performed and was found to be normal. The Olympus pediatric videocolonoscope was introduced into the rectum and advanced to the cecum. The cecum was identified by transillumination, palpation, and identification of ileocecal valve. Examination was performed. The scope was removed. He tolerated the procedure well and was returned to recovery area in stable condition. FINDINGS: The terminal ileum was not examined. The visualized colonic mucosa was normal. There was some stool coating the mucosa, which did limit the examination in the cecum and right colon mainly. This was washed and suctioned. No polyps were identified. There was moderate sigmoid diverticulosis. Retroflexed examination showed small internal hemorrhoids. IMPRESSION: Normal colonoscopy. RECOMMENDATIONS: 1. Follow up as needed. 2. Repeat colonoscopy is recommended in 10 years for average-risk individuals. MD BYRON Humphreys/CAIN / [id number]
== END 2025-02-05 15:05 | disposition home or self-care (01) ==
PROVIDERS: PCP Nurse Practitioner Family; Visit Provider Internal Medicine Gastroenterology
PROC: 0DJD8ZZ Inspection of Lower Intestinal Tract, Via Natural or Artificial Opening Endoscopic (ICD-10-PCS; CPT 45378; principal; 2025-02-05 14:00)
DX: Z12.11 Encounter for screening for malignant neoplasm of colon (principal); K57.30 Diverticulosis of large intestine without perforation or abscess without bleeding; K64.8 Other hemorrhoids; I48.91 Unspecified atrial fibrillation; G47.33 Obstructive sleep apnea (adult) (pediatric); Z99.89 Dependence on other enabling machines and devices; Z87.891 Personal history of nicotine dependence; Z79.01 Long term (current) use of anticoagulants; Z79.899 Other long term (current) drug therapy
CPT/HCPCS: 45378; J2003; J2704

== ENCOUNTER 2025-03-18 09:04 | Outpatient (AMB) | payer MEDICARE, BC, SELFPAY ==
--- NOTE | 2025-03-18 09:05 | A.OFFVIS_ITS ---
Intake Visit Reasons: 2m/med review Intake Note: Patient is present for 2M/MED REVIEW Urology Medication:VITAMIN B6,MIRABEGRON Antibiotic Allergy:NONE Blood Thinner:APIXABAN Yarn Twister Required: No Allergies No Known Allergies [No Known Allergies*] Allergy (Verified 03/18/25 09:05) HPI Comments Details: Tyree GARCIA is a very pleasant male. He is a patient of Dr Bryan perez. He is seen for the following urologic conditions. - lower urinary tract symptoms - urinary urgency Telemedicine Evaluation 15 min Consultation [employer] Mya Video Two month follow-up trial Myrbetriq Failed prior trial of Toviaz, oxybutynin trial States minimal improvement from Myrbetriq Would like to move ahead with trial of Botox Open bladder neck on prior cystoscopy - bladder instability Has previously failed oxybutynin 10 mg, terazosin, tolterodine, festoridine, Myrbetriq Nocturia x3 Persistent urge frequency but does note that he drinks too much coffee Continues with EVON mask and has been thirsty at night Lower Urinary Tract Symptoms: Current visit is for further evaluation of, lower urinary tract symptoms, predominate obstructive symptoms. Current treatment includes medication, alpha dayo - tamsulosin 0.4 mg with tolterodine Prostate Symptom Score 09/07 , Moderate (9-19), Bother 3. Symptoms include 09/07 , incomplete emptying, weak stream, nocturia (>2), and are progressing. PSA 09/06 0.2, 10/11 0.3, 01/13 0.2 - family history of prostate cancer with father Prostate volume 30-50gm. [facility] Medical History Depression Anxiety History of cardioversion Morbid obesity Weak urinary stream Incomplete emptying of bladder Essential hypertension EVON on CPAP Paroxysmal atrial fibrillation Surgical History History of cardiac ablation for atrial fibrillation Hx of colonoscopy History of tonsillectomy Family History Father Heart attack Prostate cancer Mother Heart disease Son Substance use disorder Daughter Substance use disorder Sister Mental health disorder Social History Household Members: Family Housing: House Are you a primary director career services to a significant other at home: No Do you presently have visiting nurse or other home services: No 75 years or older and lives alone: No Alcohol intake: never Patient Tobacco Use Status: Former Tobacco user Tobacco use type: Cigarette Years Smoked: 10 +/- e-Cigarette/Vaping Use: Never Used Second Hand Smoke Exposure: No Advance Directives: Yes Advance Directives Information Provided: No Advance Directives on File: Yes Advance Directives Date on File: 01/22/16 Healthcare Proxy: Yes service: Yes Current occupational status: retired Cognitive needs: No Hearing needs: No Vision needs: No Review of Systems Const All systems reviewed & are unremarkable except as noted in HPI and below Reports no additional complaints Resp Reports no additional complaints GI Reports no additional complaints Reports as per HPI Musc Reports no additional complaints Physical Exam Telemedicine evaluation Appropriate responses Regular breathing rate and rhythm HEENT Head: Yes normal to inspection Ears: hearing grossly normal bilaterally Eyes General: appearance normal, both eyes and all related structures Neck Neck: Yes normal visual inspection Chest Chest palpation & inspection: normal inspection of the chest Resp Effort & Inspection: normal respiratory effort and able to speak in complete sentences Telehealth Telehealth Telehealth Platform: [employer] Location of provider rendering services: practice address Location of patient: address on file Patient Identification confirmed using: Name, : Yes Telehealth method: video Patient verbally consented to treatment: Yes Patient verbally consented to billing insurance company: Yes Patient informed of any privacy concerns related to visit: Yes Minutes spent on Phone/Video with Pt.: 15 Assessment & Plan Assessment & Plan (1) BPH (benign prostatic hyperplasia): Code(s): N40.0 - Benign prostatic hyperplasia without lower urinary tract symptoms Category: Medical (2) Nocturia more than twice per night: Code(s): R35.1 - Nocturia Category: Medical (3) Urinary urgency: Code(s): R39.15 - Urgency of urination Category: Medical (4) Bladder instability: Code(s): N32.89 - Other specified disorders of bladder Category: Medical Plan Risks, benefits and alternatives to therapy were discussed. These include but are not limited to infection, bleeding, damage to local organs and tissues, need for further interventions. Anesthetic risks regarding cardiac arrhythmia, blood clots, and potential mortality were discussed. The patient understands the typical recovery time and the outpatient nature of the procedure. After consideration of these risks the patient gives full informed consent and they wish to move ahead with the procedure. Cystoscopy, bladder Botox Patient Instructions: This note is constructed using voice recognition software. While every effort has been made to ensure accuracy christian counselor errors may have been included. Imaging studies, laboratory and physical exam results were discussed and reviewed in detail. No major barriers to patient understanding were identified. An opportunity to ask questions regarding the treatment plan was provided. All questions were answered. The patient expressed understanding and agreement with the above treatment plan. The patient is aware they should contact our office by phone for worsening of th eir current condition or the appearance of new urologic symptoms. Compliance is encouraged with any medications and followup testing that is ordered. It is a privilege to participate in the urologic care of your patient. If you have any questions or concerns regarding treatment for the above conditions, or other urologic issues, please do not hesitate to contact me. The office telephone contact is [phone]. Sincerely, Dr Farzad Ivan MD, KENJI [facility] - Urology Compassionate Specialist Care for the Genitourinary System Coding Level of Care Code Tele Est Pt Level 4 (23189) Complex EM visit Add On G2211 Diagnoses BPH (benign prostatic hyperplasia) N40.0 Nocturia more than twice per night R35.1 Urinary urgency R39.15 Bladder instability N32.89
--- OUTSIDE RECORDS SUMMARY | 2025-03-18 09:41 | XMS_ITS | Patient Health Record ---
Author Organization [facility] Address [address] [place] [address] Care Team Providers Care Land Inspector Name Role Phone Kristian Goldman Primary Care Provider Unav ailable Black, Mayra Unavailable [phone] Allergies No Known Allergies Reason For Referral [...] Problem Status W/U Status Risk Notes Problem 38922727 Ulcer of left heel and midfoot, limited to breakdown of skin (L97.421) Active confirmed Plan Of Treatment Pending Test Test Name Order Date *Liver Function Test (LFT) 02/26/2015 [id number] NAIL, 6 OR MORE 02/26/2015 77958-THQOLBE NAIL, 6 OR MORE 06/01/2015 24787-GUCSNUF NAIL, 6 OR MORE 10/27/2022 93498-OVVOCXH NAIL, 6 OR MORE 08/24/2015 15661-WBJGAAR NAIL, 6 OR MORE 11/30/2015 78621-SCYJUZH NAIL, 6 OR MORE 05/30/2016 40956-RVNOSVL NAIL, 6 OR MORE 09/01/2016 86297-SRSNVQY NAIL, 6 OR MORE 02/02/2017 37635-KHVKBTY NAIL, 6 OR MORE 08/03/2017 50918-EOWSTCB NAIL, 6 OR MORE 02/01/2018 30593-HYUHRND NAIL, 6 OR MORE 09/06/2018 62375-EUGDUNH NAIL, 6 OR MORE 01/20/2022 29221- Debride <25 sq cm 10/27/2022 89914- Debride <25 sq cm 06/01/2015 19134- Debride <25 sq cm 02/26/2015 Insurance Providers Payer Name Payer Address Payer Phone Subscriber Number Group Number Insured Name Patient Relationship to Insured Coverage Start Date Coverage End Date Medicare National [employer] [address] [place] [address] [id number] Tyree Ferrell Self - patient is the insured [facility] [address] [place] [address] [id number] Tyree Ferrell Self - patient is the insured Medical (General) History Medical History History ICD Code Diverticulitis Chicken pox Anxiety Measles High blood pressure Heart disease Surgical History Surgery Date(Month/Year) colonoscopy Hospitalization History Reason Date(Month/Year) [facility] [place] for chest paim. pt was kept over nig ht for observation 06/2016
== END 2025-03-18 11:18 | disposition home or self-care (01) ==
LOC: HO.HUSH 09:04
PROVIDERS: PCP Nurse Practitioner Family; Visit Provider Urology
DX: N40.0 Benign prostatic hyperplasia without lower urinary tract symptoms (principal); R35.1 Nocturia; R39.15 Urgency of urination; N32.89 Other specified disorders of bladder
CPT/HCPCS: 99214; G2211

== ENCOUNTER → 2025-03-18 09:04 | Outpatient (BNVA) | payer MEDICARE, BC, SELFPAY | PROVIDERS: PCP Nurse Practitioner Family; Visit Provider Urology | DX: Z13.89 Encounter for screening for other disorder (principal) ==

== ENCOUNTER → 2025-04-08 08:06 | Outpatient (RCR) | payer BC, SELFPAY ==
--- NOTE | 2020-09-24 19:09 | MHC.PT.DC ---
[facility] [place] [facility] [place] [facility] [place] [facility] [address] Case Torres [address] [facility] [phone] F: [phone] F: [phone] F: [phone] F: [phone] Physical Therapy Discharge Report Diagnosis: L knee pain. Date of Surgery: Date of Evaluation: 08/14/20 Date of Discharge: Treatments to Date: 7 Cancellations to Date: 0 No Shows to Date: 0 Discharge Status: Discharge Summary: Tyree has been an active participant in his therapy in and out of the clinic, has met all of his therapeutic goals, has been pain free and is in agreement with DC at this time. Electronically signed by: Daen Moore PT. Please sign and return to therapist. Thank you for your referral.
--- NOTE | 2020-09-28 16:44 | MHC.PT.DC ---
[facility] [place] [facility] [place] [facility] [place] [facility] [address] Case Torres [address] [phone] F: [phone] F: [phone] F: [phone] F: [phone] Physical Therapy Discharge Report Diagnosis: L knee pain. Date of Surgery: Date of Evaluation: 08/14/20 Date of Discharge: Treatments to Date: 7 Cancellations to Date: 0 No Shows to Date: 0 Discharge Status: Goals met. Discharge Summary: Tyree has been an active participant in his therapy in and out of the clinic, he has met all of his therapeutic goals, has been pain free for > 2 weeks and is in agreement with DC at this time. Electronically signed by: Dane Moore PT. Please sign and return to therapist. Thank you for your referral.
== END | disposition home or self-care (01) ==
LOC: HO.PTCHIC 09-11 08:48
PROVIDERS: Visit Provider Orthopaedic Surgery
DX: M23.92 Unspecified internal derangement of left knee (principal)
CPT/HCPCS: 97110; 97112

== ENCOUNTER 2025-04-24 11:21 | Outpatient (AMB) | payer MEDICARE, BC, SELFPAY ==
--- NOTE | 2025-04-24 11:24 | MHC.OFFVIS ---
Vital Signs 04/24/25 11:26 Height 6 ft 1 in Weight 279 lb 8 oz BMI 36.9 BP 136/72 Blood Pressure Location Lt brachial Position Sitting Pulse 73 Pulse Source Pulse Oximeter Pulse Oximetry (%) 97 Oxygen Delivery Method Room Air Intake Visit Reasons: Follow up Intake Note: Patient presents follow up EVON medication. Compliance in chart(90/90days, >=4hrs-100%, Average usage- 7hrs, Med Leaks-21.4, AHI-0.9). Allergies No Known Allergies [No Known Allergies*] Allergy (Verified 04/24/25 11:27) HPI Comments Details: 69 year old male with nocturia, HTN and EVON is here for a f/u of sleep evaluation. EVON Compliance Report 01/17/2025 - 04/16/2025 Total use is 90/90 days 100% usage >4 hours Avg is 7 hours 4 min Press set to [id number] Leaks median 39-103max AHI 0.9 He washes his mask, changes the filters and cleans the tubing as needed, has not been contacted by his sleep company for months re: pressures on his machine continue to leak and wake him up at night. The air dries out his mouth and he has to drink water to wet his mouth and avoid sensitivity from the cold air. His machine continues to give him a sad red face daily, despite his compliance. He goes to bed at 10pm and wakes up at 5am, his sleep is very good except that he wakes up for the bathroom 2-3 times daily. He is being managed by Urology for a Botox procedure on May 12, 2025. He drinks 16 oz of coffee a day in the morning and stops fluids 2 hours prior to bedtime. His STM is poor and forgets why he entered a room, or why he opened the refrigerator, and keeping appointments also becoming difficult for him. He is still driving and gets confused when going from place A to place B and gets lost, as he is easily distracted. He is depressed, grieving the loss of his who recently passed in Jul 2023. He attends a support group once a week and declines one on one counseling today. His daughter is starting her move out of his home to live with her boyfriend, the 3 grand kids are still living with him and they keep him active. His diet is okay, he is maintaining his weight to 279- 282, he drinks a lot of water around 30oz a day and walks occasionally. 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 He denies RLS symptoms. He gets headaches once a month and takes otc tylenol as needed. He continues to have hearing problems in both ears, however he was evaluated to r/o cerumen impaction, and now continues to hear muffled sounds and background sounds are not heard well so he has to ask individuals to repeat what they are saying. He also he has swimmers ear. Denies drainage, and pain today with the exception of one isolated incident of r>l ear pain. His BP is well controlled today and taking his BB as prescribed. Labs reviewed with patient and b12 is low. [facility] Medical History Depression Anxiety History of cardioversion Morbid obesity Weak urinary stream Incomplete emptying of bladder Essential hypertension EVON on CPAP Paroxysmal atrial fibrillation Surgical History History of cardiac ablation for atrial fibrillation Hx of colonoscopy History of tonsillectomy Family History Father Heart attack Prostate cancer Mother Heart disease Son Substance use disorder Daughter Substance use disorder Sister Mental health disorder Social History Household Members: Family Housing: House Are you a primary senior resident care director to a significant other at home: No Do you presently have visiting nurse or other home services: No 75 years or older and lives alone: No Alcohol intake: never Patient Tobacco Use Status: Former Tobacco user Tobacco use type: Cigarette Years Smoked: 10 +/- e-Cigarette/Vaping Use: Never Used Second Hand Smoke Exposure: No Advance Directives Date on File: 01/22/16 service: Yes Current occupational status: retired Cognitive needs: No Hearing needs: No Vision needs: No Physical Exam Vital Signs: Last Vital Signs Pulse 73 04/24/25 11:26 BP 136/72 04/24/25 11:26 Pulse Ox 97 04/24/25 11:26 Oxygen Delivery Method Room Air 04/24/25 11:26 BMI result Body Mass Index 36.9 Const General: cooperative and no acute distress Nutritional Appearance: other (BMI is 37) Orientation/consciousness: patient oriented x3 HEENT Face and sinus: Yes normal facial exam and Yes face symmetric Mouth: restricted motion (unable to extend) Throat: Yes other ([place] score of 4) Eyes Pupils: Equal, round and reactive pupils present Resp Effort & Inspection: normal respiratory effort and able to speak in complete sentences Neuro General: patient oriented x3 Cranial nerves: Yes CN's II-XII intact bilaterally, Yes Facial sensation intact/muscles of mastication intact, Yes Equal, round and reactive pupils present, Yes Normal accommodation reflex present, Yes Nystagmus not present, Yes Normal facial strength present, Yes Midline tongue present, Yes Ability to bilaterally rotate head present and Yes Ability to bilaterally elevate shoulders present Psych Appearance: well kempt Speech and movement: Slurred speech present Affect: Sad affect present Attitude: cooperative Results Reviewed Results Reviewed: EVON Compliance Report 01/17/2025 - 04/16/2025 Total use is 90/90 days 100% usage >4 hours Avg is 7 hours 4 min Press set to [id number] Leaks median 39-103max AHI 0.9 Assessment & Plan Assessment & Plan (1) EVON on CPAP: Code(s): G47.33 - Obstructive sleep apnea (adult) (pediatric); Z99.89 - Dependence on other enabling machines and devices Category: Medical (2) Low vitamin B12 level: Code(s): E53.8 - Deficiency of other specified B group vitamins Category: Medical (3) Right ear impacted cerumen: Comment: not sure if it is impacted or polyp Code(s): H61.21 - Impacted cerumen, right ear Category: Medical Plan HST EVON on cpap therapy, last HST was in 2018, will send for evaluation of EVON. Advised patient to continue to use CPAP at [id number] as patient experiences good clinical effects, will send order for new cpap machine. Labs reviewed with pt. Continue to have monthly B12 injection and monitor the levels B12 is 190 per last Labs. May take otc sublingually or chewable 1000mcg po daily. F/U with ENT for hearing difficulties, with polyps? as sounds tend to be muffled, R>L ear. with pain. Continue daily exercise, walking for 10-15min and drinking plenty of water. Memory difficulties, if continued will do mmse at next f/u in 6 months. Orders: Orders RT home sleep study Today G47.19 - Other hypersomnia Medications: New mecobalamin (vitamin B12) take one tablet daily at bedtime. 1,000 mcg PO DAILY 2 months 60 tabs 0RF low b12 levels MDD 1000mcg E53.8 - Deficiency of other specified B group vitamins Patient Instructions: Sleep Hygiene provided: set a scheduled bedtime and wake time to help regulate the circadian rhythm and balance the release of pituitary hormones. Sleep in a dark room, temperatures below 68 degrees, and no devices n bed. Limit caffeinated products 6 hours prior to bed, and limit fluids 2-4 hours prior to bed. Gentle night yoga, diffusing essential oils, and playing soft music can be relaxing. Coding Level of Care Code Est Pt Level 4 (88222) Diagnoses EVON on CPAP G47.33; Z99.89 Low vitamin B12 level E53.8 Right ear impacted cerumen H61.21 Time Spent (min) 35 Comment improving
[2025-04-24 11:26] VITALS: BP 136/72; PULSE 73; O2SAT 97; BMI 36.9
--- OUTSIDE RECORDS SUMMARY | 2025-04-24 13:33 | XMS_ITS | Patient Health Record ---
Author Organization [facility] Address [address] [place] [address] Care Team Providers Care Front Office Coordinator Name Role Phone Kristian Goldman Primary Care Provider Unav ailable Black, Mayra Unavailable [phone] Allergies No Known Allergies Reason For Referral [...] Problem Status W/U Status Risk Notes Problem 16295981 Ulcer of left heel and midfoot, limited to breakdown of skin (L97.421) Active confirmed Plan Of Treatment Pending Test Test Name Order Date *Liver Function Test (LFT) 02/26/2015 [id number] NAIL, 6 OR MORE 02/26/2015 [id number] NAIL, 6 OR MORE 06/01/2015 [id number] NAIL, 6 OR MORE 10/27/2022 [id number] NAIL, 6 OR MORE 08/24/2015 [id number] NAIL, 6 OR MORE 11/30/2015 [id number] NAIL, 6 OR MORE 05/30/2016 [id number] NAIL, 6 OR MORE 09/01/2016 [id number] NAIL, 6 OR MORE 02/02/2017 [id number] NAIL, 6 OR MORE 08/03/2017 [id number] NAIL, 6 OR MORE 02/01/2018 [id number] NAIL, 6 OR MORE 09/06/2018 [id number] NAIL, 6 OR MORE 01/20/2022 05986- Debride <25 sq cm 10/27/2022 83599- Debride <25 sq cm 06/01/2015 14321- Debride <25 sq cm 02/26/2015 Insurance Providers Payer Name Payer Address Payer Phone Subscriber Number Group Number Insured Name Patient Relationship to Insured Coverage Start Date Coverage End Date Medicare National [employer] [address] [facility] [address] [id number] Tyree Ferrell Self - patient is the insured [facility] [address] [place] [address] [id number] Tyree Ferrell Self - patient is the insured Medical (General) History Medical History History ICD Code Diverticulitis Chicken pox Anxiety Measles High blood pressure Heart disease Surgical History Surgery Date(Month/Year) colonoscopy Hospitalization History Reason Date(Month/Year) [facility] for chest paim. pt was kept over nig ht for observation 06/2016
== END 2025-04-24 12:22 | disposition home or self-care (01) ==
LOC: HO.HSMS 11:21
PROVIDERS: PCP Nurse Practitioner Family; Visit Provider Physician Assistant Medical
DX: G47.33 Obstructive sleep apnea (adult) (pediatric) (principal); Z99.89 Dependence on other enabling machines and devices; E53.8 Deficiency of other specified B group vitamins; H61.21 Impacted cerumen, right ear
CPT/HCPCS: 99214

== ENCOUNTER → 2025-04-24 11:21 | Outpatient (BNVA) | payer MEDICARE, BC, SELFPAY | PROVIDERS: PCP Nurse Practitioner Family; Visit Provider Physician Assistant Medical | DX: G47.33 Obstructive sleep apnea (adult) (pediatric) (principal); E53.8 Deficiency of other specified B group vitamins; H61.21 Impacted cerumen, right ear; Z99.89 Dependence on other enabling machines and devices | CPT/HCPCS: 99212 ==

== ENCOUNTER 2025-05-12 11:20 | Day surgery (SDC) | payer MEDICARE, BC, SELFPAY ==
--- OUTSIDE RECORDS SUMMARY | 2025-04-04 11:14 | XMS_ITS | Patient Health Record ---
Author Organization [facility] Address [address] [place] [address] Care Team Providers Care Public Relations Counselor Name Role Phone Kristian Goldman Primary Care Provider Unav ailable Black, Mayra Unavailable [phone] Allergies No Known Allergies Reason For Referral [...] Problem Status W/U Status Risk Notes Problem 10027162 Ulcer of left heel and midfoot, limited to breakdown of skin (L97.421) Active confirmed Plan Of Treatment Pending Test Test Name Order Date *Liver Function Test (LFT) 02/26/2015 [id number] NAIL, 6 OR MORE 02/26/2015 35439-[id number] NAIL, 6 OR MORE 06/01/2015 13185-MVPBGPS NAIL, 6 OR MORE 10/27/2022 10151-NMVWBFS NAIL, 6 OR MORE 08/24/2015 92922-XQVCCHI NAIL, 6 OR MORE 11/30/2015 43938-IOWHZAC NAIL, 6 OR MORE 05/30/2016 11188-UUAPOHP NAIL, 6 OR MORE 09/01/2016 27095-MKKTHMQ NAIL, 6 OR MORE 02/02/2017 67122-MJCUILG NAIL, 6 OR MORE 08/03/2017 93852-KOLFZDA NAIL, 6 OR MORE 02/01/2018 08511-ZSIJBQY NAIL, 6 OR MORE 09/06/2018 06873-MRHYMBY NAIL, 6 OR MORE 01/20/2022 73177- Debride <25 sq cm 10/27/2022 51001- Debride <25 sq cm 06/01/2015 65306- Debride <25 sq cm 02/26/2015 Insurance Providers Payer Name Payer Address Payer Phone Subscriber Number Group Number Insured Name Patient Relationship to Insured Coverage Start Date Coverage End Date Medicare National [employer]t Sv[employer] [address] [facility] [place] [address] [id number] Tyree Ferrell Self - patient is the insured [facility] [address] [place] [address] [id number] Tyree Ferrell Self - patient is the insured Medical (General) History Medical History History ICD Code Diverticulitis Chicken pox Anxiety Measles High blood pressure Heart disease Surgical History Surgery Date(Month/Year) colonoscopy Hospitalization History Reason Date(Month/Year) [facility] [place] for chest paim. pt was kept over nig ht for observation 06/2016
--- OUTSIDE RECORDS SUMMARY | 2025-04-04 11:14 | XMS_ITS ---
Author Organization [facility] Address [address] [place] [address] Care Team Providers Care Wildland Fire Fighter Name Role Phone JACEARLEY REBEKAH Primary Care Provider Harinder Lerma Jr REASON FOR VISIT please lock 01-13-25 ov Encounters Encounter Location Date Provider Diagnosis [facility] [address] [place] [address] 02/03/2025 Harinder Ta Jr Plan Of Treatment No Information Progress Notes * RADHA ANSLEYDOB: 7 (69 yo M)Acc No.[id number]:02/03/2025 Patient:?ANSLEY GARCIA :1955???Age:69 Y???Sex:Male Address:[address] [place] [address] * true * Date:? Generated for Staciei cecilio/Sudhir/eTransmitting on:?04/04/2025 11:14 AM EDT
--- OUTSIDE RECORDS SUMMARY | 2025-04-04 11:14 | XMS_ITS ---
Author Organization [facility] Address [address] [place] [address] Care Team Providers Care Linux Engineer Name Role Phone JACEARLEY REBEKAH Primary Care Provider Harinder Lerma Jr Unavailable Allergies No Known Allergies REASON FOR VISIT Patient presents today for diverticulitis Medications Medication SIG (Take, Route, Frequency, Duration) [...] morn ing Orally Once a day Active Problems Problem Type SNOMED Code ICD Code Onset Dates Problem Status W/U Status Risk Notes Problem 921586178 Colon cancer screening (Z12.11) Active confirmed Problem 573329686 Diverticulosis (K57.90) Active confirmed Problem 51607093 Constipation, unspecified constipation type (K59.00) Active confirmed Problem 243954823 medical claims assistant (curre nt) use of anticoagulants (Z79.01) Active confirmed Vital Signs Temperature 97.7 degrees Fahrenheit 01/13/20 25 Blood pressure systolic 001 mm Hg 01/13/20 25 Blood pressure diastolic 01 mm Hg 025 Height 72 in 01/13/2025 Weight 283.4 lbs 01/13/2025 BMI 38.43 kg/m2 01/13/2025 Encounters Encounter Location Date Provider Diagnosis [facility] [address] [place] [address] 01/13/2025 Harinder Ta Jr Colon cancer screening Z12.11 ; Diverticulosis K57.90 ; Constipation, unspecified constipation type K59.00 and skilled nursing (current) use of anticoagulants Z79.01 Assessments Encounter Date Diagnosis (ICD Code) Assessment Notes Treatment Notes Treatment Clinical Notes Section Notes 01/13/2025 Colon cancer screening (ICD-10 - Z12.11) Colonoscopy material was printed We discussed diverticular disease today. We recommend that he follow a high-fiber diet. We discussed constipation today. We recommended high-fiber diet and MiraLAX as needed for constipation symptoms. He is due for follow-up colonoscopy. This will be arranged. He is aware of risks and benefits and agrees to proceed. He is advised to stop Eliquis 3 days before the procedure. 01/13/2025 Diverticulosis (ICD-10 - K57.90) We discussed diverticular disease today. We recommend that he follow a high-fiber diet. We discussed constipation today. We recommended high-fiber diet and MiraLAX as needed for constipation symptoms. He is due for follow-up colonoscopy. This will be arranged. He is aware of risks and benefits and agrees to proceed. He is advised to stop Eliquis 3 days before the procedure. 01/13/2025 Constipation, unspecified constipation type (ICD-10 - K59.00) We discussed diverticular disease today. We recommend that he follow a high-fiber diet. We discussed constipation today. We recommended high-fiber diet and MiraLAX as needed for constipation symptoms. He is due for follow-up colonoscopy. This will be arranged. He is aware of risks and benefits and agrees to proceed. He is advised to stop Eliquis 3 days before the procedure. 01/13/2025 skilled nursing (current) use of anticoagulants (ICD-10 - Z79.01) We discussed diverticular disease today. We recommend that he follow a high-fiber diet. We discussed constipation today. We recommended high-fiber diet and MiraLAX as needed for constipation symptoms. He is due for follow-up colonoscopy. This will be arranged. He is aware of risks and benefits and agrees to proceed. He is advised to stop Eliquis 3 days before the procedure. Plan Of Treatment Treatment Notes Assessment Notes Colon cancer screening Colonoscopy mater ial was printed Future Test Test Name Order Date COLONOSCOPY 02/03/2025 Next Appt Details Follow Up: 1 Year, Reason: Progress Notes * TYREE GARCIADOB: 7 (69 yo M)Acc No.[id number]:01/13/2025 Progress Notes Patient:?TYREE GARCIA Provider:?Harinder Ta MD :1955???Age:69 Y???Sex:Male Juan e:01/13/2025 [facility] Pcp:REBEKAH LYNN Subjective: * Chief Complaints: * ???1. Patient presents today for diverticulitis. * HPI: ???New symptom(s):?Tyree is a pleasant 69-year-old man seen today in consultation.He previously underwent colonoscopy in 2014 because of diverticulitis. This showed moderate diverticulosis of the sigmoid colon but was otherwise normal. 10-year follow-up colonoscopy was recommended. He has no complaints of rectal bleeding or change in his bowel habits. He has had some intermittent constipation that has not required significant treatment.He tries to follow a high-fiber diet. He uses MiraLAX on a as needed basis. * ROS:?General/Constitutional:?Change in appetite?denies.?Fatigue?denies.?ENT:?Patient denies?difficulty swallowing.?Respiratory:?Patient denies?shortness of breath.?Cardiovascular:?Patient denies?chest pain.?Gastrointestinal:?Comments?See HPI for details.?Genitourinary:?Difficulty urinating?denies.?Incontinence?denies.?Musculoskeletal:?Patient denies?muscle aches.?Skin:?Patient denies?pruritis.?Neurologic:?Patient denies?low back pain.?Psychiatric:?Patient denies?mental or physical abuse.? * Medical History:?Colonoscopy 04-15-2009, Diverticulitis, Anxiety, Atrial fibrillation, History of ablation, EVON/CPAP. * Family History:?Father: dece ased, diagnosed with Heart disease, Diabetes.?Mother: , diagnosed with Heart disease.? No family history of liver cancer or colon cancer. * Social History:?Tobacco Use:?Tobacco Use/Smoking?Are you a: former smoker , How long has it been since you last smoked?: > 10 years.?Drugs/Alcohol:?Alcohol Screen?Points: 0, Interpretation: Negative.?Miscellaneous:?Marital status: . 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 * Medications:?Taking Paxil 20 MG Tablet 1 tablet in the morning Orally Once a day , Taking Eliquis 5 MG Tablet Oral , Taking Vitamin B-6 100 MG Tablet TAKE 1 TABLET BY MOUTH EVERY DAY FOR CRAMPS MAY TAKE AND ADDITIONAL TABLET MAX OF 2 TABLETS DAILY Oral , Taking Magnesium Oxide -Mg Supplement 400 (240 Mg) MG Tablet TAKE 1 TABLET BY MOUTH DAILY FOR SLEEP Oral , Taking Fesoterodine Fumarate ER 8 MG Tablet Extended Release 24 Hour TAKE 1 TABLET BY MOUTH DAILY Oral , Taking Metoprolol Succinate ER 25 MG Tablet Extended Release 24 Hour TAKE 1 TABLET BY MOUTH DAILY Oral , Taking PARoxetine HCl 20 MG Tablet TAKE 1 TABLET BY MOUTH DAILY Oral , Discontinued MoviPrep 100 GM Solution Reconstituted as directed before colonoscopy Orally * Allergies:?N.K.D.A. Objective: * Vitals:?Wt:283.4lbs, Ht: 72 in, BMI:38.43Index, BP:001/01mm Hg, Temp:97.7, Wt- k.55. * Examination: ???General Examination: ?GENERAL APPEARANCE:?in no acute distress.?HEAD:?normocephalic.?EYES:?sclera non-icteric.?ORAL CAVITY:?mucosa moist.?NECK/THYROID:?no lymphadenopathy.?SKIN:?anicteric.?HEART:?S1, S2 normal, no murmurs.?LUNGS:?clear to auscultation bilaterally.?CHEST:?normal shape and expansion.?ABDOMEN:?soft, nontender, nondistended, bowel sounds present, no organomegaly .?EXTREMITIES:?no clubbing, cyanosis, or edema.?PSYCH:?cognitive function intact.? Assessment: * Assessment: 1.?Diverticulosis - K57.90 ( Primary)???2.?Colon cancer screening - Z12.11???3.?Constipation, unspecified constipation type - K59.00???4.?skilled nursing (current) use of anticoagulants - Z79.01??? We discussed diverticular di sease today. We recommend that he follow a high- fiber diet. We discussed constipation today. We recommended high-fiber diet and MiraLAX as needed for constipation symptoms. He is due for follow-up colonoscopy. This will be arranged. He is aware of risks and benefits and agrees to proceed. He is advised to stop Eliquis 3 days before the procedure. Plan: * Treatment: 2.?Colon cancer screening? Notes: Colonoscopy material was printed?? * Procedure Codes:?3017F COLOR ECTAL CA SCREEN DOC REV, G9903 Pt scrn tbco id as non user, G8785 BP SCR NOT PRFRM REC REASON NOS * Preventive Medicine:? ??Counseling:?Care goal follow-up plan:?Above Normal BMI Follow-up?Dietary management education, guidance, and counseling,?BMI management provided?Yes.? ??Screenings:?Fall Risk Screening?Fall Risk Assessment:?No falls in the past year,?Screening:?No falls in the past year,?Assessment:?Not performed, no reason specified,?Plan of Care:?Not documented, no reason specified.? * Follow Up:?1 Year * * Sign off status: Completed true * Provider:?Harinder Ta MD Date:?0 01/13/2025 Generated for Elyssa hernandes/Sudhir/Aquilesitting on:?04/04/2025 11:14 AM EDT History and Physical Notes * HPI (History of Present Illness) Category Sub-Category Detail Notes Category Not es New symptom(s) Tyree is a p leasant 69-year-old man seen today in consultation.He previously underwent colonoscopy in 2013 because of diverticulitis. This showed moderate diverticulosis of the sigmoid colon but was otherwise normal. 10-year follow-up colonoscopy was recommended. He has no complaints of rectal bleeding or change in his bowel habits. He has had some intermittent constipation that has not required significant treatment.He tries to follow a high-fiber diet. He uses MiraLAX on a as needed basis. Examination Category Sub-Category Detail Notes Category Not es General Examination GENERAL APPEARANCE: in no acute di stress HEAD: normocephalic EYES: sclera non-icteric NECK/THYROID: no lymphadenopathy HEART: S1, S2 normal, no mu rmurs CHEST: normal shape and exp ansion LUNGS: clear to auscultatio n bilaterally ABDOMEN: soft, nontender, non distended, bowel sounds present, no organomegaly SKIN: anicteric EXTREMITIES: no clubbing, cyanosi s, or edema PSYCH: cognitive function i ntact ORAL CAVITY: mucosa moist
--- OUTSIDE RECORDS SUMMARY | 2025-04-04 11:14 | XMS_ITS ---
Author Organization [facility] Address [address] [place] [address] Care Team Providers Care Sustainability Specialist Name Role Phone REBEKAH LYNN Primary Care Provider Harinder Lerma Jr REASON FOR VISIT screening Encounters Encounter Location Date Provider Diagnosis [facility] [address] [place] [phone] 02/05/2025 Harinder Ta Jr Colon cancer screening Z12.11 Assessments Encounter Date Diagnosis (ICD Code) Assessment Notes Treatment Notes Treatment Clinical Notes Section Notes 02/05/2025 Colon cancer screening (ICD-10 - Z12.11) Plan Of Treatment No Information Progress Notes * RADHAANSLEYDOB: 7 (69 yo M)Acc No.[id number]:02/05/2025 COLON WITH MAC Patient:?TIFFANYANSLEY PRETTY Provider:?Harinder Ta MD :1955???Age:69 Y???Sex:Male Juan e:02/05/2025 Address:[address] [id number] Pcp:REBEKAH LYNN Subjective: * Chief Complaints: * ???1. Screening. * Medical History:? Objective: * Vitals:? Assessment: * Assessment: 1.?Colon cancer screening - Z12.11 (Primary)??? Plan: * Treatment: * Procedure Codes:?76772 DIAGN OSTIC COLONOSCOPY * * The named appointment provid er may or may not be the originator of this progress note, and it is not deemed complete until electronically signed by the appointment provider. Sign off status: Pending * Provider:?Harinder Ta MD Date:?0 02/05/2025 Generated for Elyssa hernandes/Sudhir/Vishnu on:?04/04/2025 11:14 AM EDT
--- OUTSIDE RECORDS SUMMARY | 2025-04-04 11:15 | XMS_ITS | Patient Health Record ---
Author Organization [facility] Address [address] [place] [address] Care Team Providers Care Leasing Specialist Name Role Phone SAMANTHADanuta REBEKAH Primary Care Provider Harinder Lerma Jr Unavailable Allergies No Known Allergies Reason For Referral [...] morn ing Orally Once a day Active Immunizations Vaccine Route Administration Date Status Comme nts Influenza Unknown 09/10/2024 Administered Problems Problem Type SNOMED Code ICD Code Onset Dates Problem Status W/U Status Risk Notes Problem 18461766 Rectal bleeding (569.3) Active confirmed Problem 849860138 Diverticulitis (562.11) Active confirmed Problem 352267348 Colon cancer screening (Z12.11) Active confirmed Problem 815285848 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 (Z79.01) Active confirmed Problem 217442699 Diverticulosis (K57.90) Active confirmed Problem 45369084 Constipation, unspecified constipation type (K59.00) Active confirmed Vital Signs Temperature 97.7 degrees Fahrenheit 01/13/2025 Blood pressure diastolic 01 mm Hg 01/13/2025 Height 72 in 01/13/2025 Blood pressure systolic 001 mm Hg 01/13/2025 Weight 283.4 lbs 01/13/2025 BMI 38.43 kg/m2 01/13/2025 Encounters Encounter Location Date Provider Diagnosis [facility] [address] [address] [place], [place] [id number] 02/05/2025 Harinder Ta Jr Colon cancer screening Z12.11 [facility] [address] [place] [id number] 01/13/2025 Harinder Ta Jr Colon cancer screening Z12.11 ; Diverticulosis K57.90 ; Constipation, unspecified constipation type K59.00 and correction (current) use of anticoagulants Z79.01 [facility] [address] [place] [id number] 10/21/2024 Harinder Ta Jr [facility] [address] [place] [phone] 02/03/2025 Harinder Ta Jr Assessments Encounter Date Diagnosis (ICD Code) Assessment Notes Treatment Notes Treatment Clinical Notes Section Notes 02/05/2025 Colon cancer screening (ICD-10 - Z12.11) 01/13/2025 Colon cancer screening (ICD-10 - Z12.11) [...] Eliquis 3 days before the procedure. 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 Plan Of Treatment Future Test Test Name Order Date COLONOSCOPY 05/30/2014 COLONOSCOPY 02/03/2025 Insurance Providers Payer Name Payer Address Payer Phone Subscriber Number Group Number Insured Name Patient Relationship to Insured Coverage Start Date Coverage End Date MEDICARE OF [place] [address] [place] [address] [id number] ANSLEY GARCIA Self - patient is the insured [address] [place] [address] [place], [place] [id number] ANSLEY GARCIA Self - patient is the insured Medical (General) History Medical History History ICD Code colonoscopy 04-15-2009 diverticulitis anxiety Atrial fibrillation, History of ablation EVON/CPAP
[2025-05-08 09:23] VITALS: BMI 37.5
[2025-05-12 11:46] VITALS: BMI 35.7
[2025-05-12 11:58] VITALS: BP 144/82; PULSE 72; RESP 16; TEMP 36.9; O2SAT 96
--- NOTE | 2025-05-12 11:59 | HO.ANESPROP2 ---
HPI - Anesthesia Eval Consult details Narrative: CYSTO PMFSH Active Problems Active Problems: All Active Problems EVON (obstructive sleep apnea) (Acute) Right ear impacted cerumen (Acute) Fatigue due to sleep pattern disturbance (Acute) Otalgia of left ear (Acute) Excessive cerumen in both ear canals (Acute) Loss of hearing (Acute) PVCs (premature ventricular contractions) (Acute) NSVT (nonsustained ventricular tachycardia) (Acute) Bladder instability (Acute) Bilateral hip joint arthritis (Acute) Depression (Acute) Right hip pain (Acute) Left hip pain (Acute) B12 deficiency (Acute) Screening-pulmonary TB (Acute) Immunizations incomplete (Acute) Nocturia more than twice per night (Acute) Elevated TSH (Acute) Elevated blood sugar (Acute) Low back pain radiating to both legs (Acute) Urinary incontinence (Acute) Cerumen impaction (Acute) Screening PSA (prostate specific antigen) (Acute) Physical exam (Acute) Low vitamin B12 level (Acute) Fatigue (Acute) Daytime sleepiness (Acute) Incomplete emptying of bladder due to benign prostatic hyperplasia (Acute) Urinary urgency (Acute) Severe obstructive sleep apnea (Acute) Physical exam, routine (Acute) BPH (benign prostatic hyperplasia) (Acute) Morbid obesity (Acute) Weak urinary stream (Acute) Essential hypertension (Acute) EVON on CPAP (Acute) Paroxysmal atrial fibrillation (Acute) Past Medical History Medical History Depression Anxiety History of cardioversion Morbid obesity Weak urinary stream Incomplete emptying of bladder Essential hypertension EVON on CPAP Paroxysmal atrial fibrillation Family History Family History Father Heart attack Prostate cancer Mother Heart disease Son Substance use disorder Daughter Substance use disorder Sister Mental health disorder Family history of problems with anesthesia: No Surgical History Surgical History History of cardiac ablation for atrial fibrillation Hx of colonoscopy History of tonsillectomy History of Problems with Anesthesia: No Social History Social History Household Members: Family Housing: House Are you a primary healthcare administrative assistant to a significant other at home: No Do you presently have visiting nurse or other home services: No Alcohol intake: never Patient Tobacco Use Status: Former Tobacco user Tobacco use type: Cigarette Years Smoked: 10 +/- e-Cigarette/Vaping Use: Never Used Second Hand Smoke Exposure: No Use of substances other than those prescribed or required for medical reasons: No Have you been hit, kicked, punched, or otherwise hurt by someone within the past year? If so, by whom?: No Are you DNR?: No Advance Directives: No Advance Directives Information Provided: Yes Advance Directives on File: No Advance Directives Date on File: 01/22/16 Poor oral hygiene: No service: Yes Current occupational status: retired Cognitive needs: No Hearing needs: No Vision needs: No Meds Allergies Allergy/AdvReac Type Severity Reaction Status Date / Time No Known Allergies (No Known Allergy Verified 04/24/25 11:27 Allergies*) Exam Height,Weight and Vital Signs: Height 6 ft 1 in Weight 122.9 kg Last Vital Signs Temp 98.5 F 05/12/25 11:58 Pulse 72 05/12/25 11:58 Resp 16 05/12/25 11:58 BP 144/82 H 05/12/25 11:58 Pulse Ox 96 05/12/25 11:58 O2 Del Method Room Air 05/12/25 11:58 Airway Mallampati Class: II TM Dist: >3cm Neck ROM: Full Heart: AFIB Lungs: CTA Assessment and Plan Assessment Anesthesia Assessment: Anesthesia Plan Discussed and Chart Reviewed Final Anesthetic Review Family History of Problems with Anesthesia: No History of Problems with Anesthesia: No NPO: Yes ASA Class: III Final Preanesthetic Review: No Changes in Pt Med Stat, Meds/Allgs Chart Reviewed, Consent Obtained/Reviewed and Anes Risks/Benef Reviewed Patient Risk: Intermediate Procedure Risk: Low Anesthetic Plan Anesthetic Plan: GA Disposition: Standard PACU
[2025-05-12] MEDS: levoFLOXacin 500 MG TABLET PO (12:09)
[2025-05-12] MEDS: Lactated Ringers 1,000 ML 80 ML IVCONT (12:10)
--- NOTE | 2025-05-12 13:06 | P.HPSUR_ITS ---
Pre-Procedural Eval Section A - 24 Hr Update-Section A only Date of Service: 05/12/25 The patient is an INPATIENT: No Changes since office visit: No Cold of Flu in the past 2 weeks, No New Medical Problems, No Changes in Medication and No Patient answered all questions The patient has been examined within 24 hours of the surgical procedure. The History & Physical has been completed within 30 days and I have reviewed it.: Yes Section B - Complete if H&P > 30 days Chief Complaint: Overactive bladder Details of Present Illness: Cystoscopy, bladder Botox Allergies: Allergies Allergy/AdvReac Type Severity Reaction Status Date / Time No Known Allergies (No Known Allergy Verified 04/24/25 11:27 Allergies*) Review of Systems Sugical H&P ROS: Negative: Constitution, Cardiovascular, Respiratory, Neurological, Psychiatric, Hem-Onc, Allergic/Immunologic, Gastrointestinal, Ge nitourinary, Musculoskeletal, Integumentary, Endocrine and Eyes/Ears/Nose/Throat Exam Surgical H&P Exam: Normal: HEENT, Normal: Heart, Normal: Lungs, Normal: Extremities, Normal: Abdomen, Normal: Skin and Normal: Neurological Plan Diagnosis/Plan: Unchanged ( cystoscopy, bladder Botox) I have reviewed the history and physical and performed a pertinent physical examination on my patient. No changes have occurred unless specified. Time Spent With Patient Time: Total time managing care of this patient today ____ minutes.
[2025-05-12 13:46] VITALS: BP 131/72; PULSE 66; RESP 16; TEMP 36.7; O2SAT 97
--- NOTE | 2025-05-12 13:49 | W.PM.OPN ---
Operative Note Operative Note Date of Service: 05/12/25 Narrative: PreOperative Diagnosis: Overactive bladder with failure of medications Post Operative Diagnosis: Overactive bladder with failure of medications Procedure: Cystoscopy with injection 100 units Botox intra detrusor muscle Surgeon: Dr Farzad Ivan Anesthesia: Sedation Indications for procedure: Is a very pleasant 69 yr male.. Has persistent urgency and frequency. Has failed oral medications. At office cystoscopy has effective emptying with minimal prostatic obstructioon. For cystoscopy and Botox injection. Is aware of the risks and benefits particularly related to urinary retention and possible infection. Procedure: After informed consent was verified the patient was brought to the operating room and placed in a supine position. Anesthesia was administered per protocol. Cystoscopy performed with [place] cystoscope. Bladder was emptied of urine. Bladder was refilled. Using 100 units of Botox mixed in 10 cc of normal saline injections were placed at the back wall of the bladder. 0.5cc placed at each injection site. Injections were placed in a grid 5 across and for high. Injections were placed from the inferior to superior position. Trabeculations on the bladder wall with targeted for each injection site. Procedure was tolerated well. Patient was extubated and transferred in stable condition to the recovery area. Pathology: None Drains: None
[2025-05-12 14:00] VITALS: BP 147/80; PULSE 60; RESP 16; O2SAT 98
[2025-05-12 14:07] VITALS: BP 158/79; PULSE 69; RESP 16; TEMP 36.6; O2SAT 98
== END 2025-05-12 14:26 | disposition home or self-care (01) ==
PROVIDERS: PCP Nurse Practitioner Family; Visit Provider Urology
PROC: 3E0K8GC Introduction of Other Therapeutic Substance into Genitourinary Tract, Via Natural or Artificial Opening Endoscopic (ICD-10-PCS; CPT 52287; principal; 2025-05-12 13:40)
DX: N32.81 Overactive bladder (principal); N32.89 Other specified disorders of bladder; N40.1 Benign prostatic hyperplasia with lower urinary tract symptoms; R35.0 Frequency of micturition; R39.15 Urgency of urination; R33.9 Retention of urine, unspecified; R39.12 Poor urinary stream; I10 Essential (primary) hypertension; I48.0 Paroxysmal atrial fibrillation; G47.33 Obstructive sleep apnea (adult) (pediatric); F32.A Depression, unspecified; F41.9 Anxiety disorder, unspecified; Z79.01 Long term (current) use of anticoagulants; Z79.899 Other long term (current) drug therapy; Z99.89 Dependence on other enabling machines and devices; Z98.890 Other specified postprocedural states; Z87.891 Personal history of nicotine dependence
CPT/HCPCS: 52287; J0585; J2003; J2704; J3010

== ENCOUNTER → 2025-05-12 11:20 | Outpatient (BNV) | payer MEDICARE, BC, SELFPAY | PROVIDERS: PCP Nurse Practitioner Family; Visit Provider Urology | DX: N32.81 Overactive bladder (principal) | CPT/HCPCS: 52287 ==

== ENCOUNTER → 2025-05-27 13:32 | Outpatient (BNVA) | payer MEDICARE, BC, SELFPAY | PROVIDERS: PCP Nurse Practitioner Family; Visit Provider Urology | DX: R32 Unspecified urinary incontinence (principal); Z79.899 Other long term (current) drug therapy | CPT/HCPCS: 51798 ==

== ENCOUNTER 2025-06-03 10:44 | Outpatient (AMB) | payer MEDICARE, BC, SELFPAY ==
--- OUTSIDE RECORDS SUMMARY | 2024-10-21 09:15 | XMS_ITS ---
Author Organization [facility] Address [address] [place] [address] [address] Care Team Providers Care Packing And Shipping Clerk Name Role Phone REBEKAH LYNN Primary Care Provider Harinder Lerma Jr REASON FOR VISIT COLON SCREENING Encounters Encounter Location Date Provider Diagnosis [facility] [address] [facility] [place] [address] 10/21/2024 Harinder Ta Jr Plan Of Treatment No Information Progress Notes * ANSLEY GARCIADOB: 7 (69 yo M)Acc No.[id number]:10/21/2024 Progress Notes Patient: ANSLEY CORDOBA Provider: Leslie Ta MD :1955 A ge:69 Y S ex:Male Date:10/21/2024 Address: [id number] Pcp:REBEKAH LYNN Subjective: * Chief Complaints: * [...] 12/22/2023 Generated for Staciei cecilio/Sudhir/eTransmitting on: 0 06/03/2025 12:06 PM EDT
--- NOTE | 2025-06-03 10:48 | MHC.PC.OV ---
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 Required: No Accompanied by: Self / Same As Patient Allergies No Known Allergies (No Known Allergies*) Allergy (Verified 06/03/25 11:28) Medication List - Last Reconciled 06/03/25 by Kristian García, INDUSTRIAL RELATIONS WORKER-BC betamethasone dipropionate 0.05% 1 appl topical DAILY PRN Eliquis (apixaban) 5 mg PO BID NS mecobalamin (vitamin B12) (PureVita Vitamin B12) 1,500 mcg PO DAILY 3 months MDD 1500mcg metoprolol succinate ER 25 mg PO DAILY mirabegron ER (Myrbetriq) 25 mg PO DAILY 30 days paroxetine HCl 20 mg PO DAILY pyridoxine (vitamin B6) 100 mg PO DAILY MDD 2 tablets Tobacco use date assessed: 06/03/25 Fall risk assessment: No Falls in past year Last assessed Fall Risk: 06/03/25 Dental Screening Dental Screen Date: 06/03/25 Did you have a dental visit in the last 12 months?: Yes Did you have a dental problem in the last 6 months where you did not have access to dental care?: No Was dental information given to patient?: Patient has dentist HPI 6 months f/up HPI Details Chief Complaint The patient presents for hypertension management and preventative care discussion. History of Present Illness The patient is a 69-year-old male presenting with hypertension management and preventative care discussion. He reports that after relaxing in the room, his blood pressure was more stable. He denies any chest pain, increased shortness of breath, dizziness, or blurred vision, indicating overall well-being. Preventative care measures were discussed, and he was encouraged to get laboratory tests in the near future. Social History Health Maintenance - Encouraged to get laboratory tests in the near future Review of Systems - Cardiovascular: Denies chest pain, dizziness - Respiratory: Denies increased shortness of breath - Neurological: Denies blurred vision Physical Exam General: Cooperative, healthy appearing, comfortable, no acute distress and well developed Orientation: Patient oriented x3 Limitations: No limitations Head: Normal to inspection Ears: Hearing grossly normal bilaterally Nose: Normal external nose present Face and sinus: Normal facial exam Eyes: Appearance normal, both eyes and all related structures Neck: Normal visual inspection and Yes full ROM Respiratory: Normal respiratory effort and able to speak in complete sentences. Clear to auscultation bilaterally Cardiovascular: Regular rate and rhythm. Normal S1 and S2 GI: Normal to inspection. Soft to palpation and nontender Skin: No rashes or lesions noted Neuro: Patient oriented x3 Extremities: Normal to inspection Results Plan The plan includes managing hypertension and ensuring stable blood pressure through lifestyle modifications and monitoring. The patient is advised to undergo laboratory tests to aid in preventative care and monitor overall health status. Discussion Notes I discussed with the patient the importance of maintaining stable blood pressure and the role of lifestyle changes in managing hypertension. We also talked about the need for laboratory tests to monitor his health and prevent potential complications. Patient Instructions - Monitor blood pressure regularly and report any significant changes. - Schedule and complete recommended laboratory tests. [facility] Medical History Depression Anxiety History of cardioversion Morbid obesity Weak urinary stream Incomplete emptying of bladder Essential hypertension EVON on CPAP Paroxysmal atrial fibrillation Surgical History History of cardiac ablation for atrial fibrillation Hx of colonoscopy History of tonsillectomy Family History Father Heart attack Prostate cancer Mother Heart disease Son Substance use disorder Daughter Substance use disorder Sister Mental health disorder Social History Household Members: Family Housing: House Are you a primary residential care facility manager to a significant other at home: No Do you presently have visiting nurse or other home services: No 75 years or older and lives alone: No Alcohol intake: never Patient Tobacco Use Status: Former Tobacco user Tobacco use type: Cigarette Years Smoked: 10 +/- e-Cigarette/Vaping Use: Never Used Second Hand Smoke Exposure: No Advance Directives Date on File: 01/22/16 service: Yes Current occupational status: retired Cognitive needs: No Hearing needs: No Vision needs: No Questionnaire PHQ-9 Over the last 2 weeks, how often have you been bothered by any of the following problems? 1. Little interest or pleasure in doing things: not at all 2. Feeling down, depressed, or hopeless: several days 3. Trouble falling or staying asleep, or sleeping too much: not at all 4. Feeling tired or having little energy: several days 5. Poor appetite or overeating: not at all 6. Feeling bad about yourself - or that you are a failure or have let yourself or your family down: not at all 7. Trouble concentrating on things, such as reading the newspaper or watching television: not at all 8. Moving or speaking so slowly that other people could have noticed. Or the opposite - being so fidgety or restless that you have been moving around a lot more than usual: not at all 9. Thoughts that you would be better off or of hurting yourself in some way: not at all Total score: 2 Depression Screening Interpretation: Negative Depression Screening Done: Yes 97150 - PHQ-9 Billing: Yes Source: Developed by Drs. Huang Wing, Milly Bernard, Sridhar Hoffman and colleagues, with an educational bryanna from [employer]. Thrive Questionnaire Date Thrive assessed: 11/27/24 I am a: Patient What is your living situation today?: I have a steady place to live Within the past 12 months, did the food you bought not last and you didn't have the money to get more?: Never true Within the past 12 months, did you worry whether your food would run out before you got money to buy more?: Never true Do you have trouble paying for medicines?: No Do you have trouble getting transportation to medical appointments?: No Do you have trouble paying your heating and electricity bill?: No Do you have trouble taking care of your child, family member or friend?: No Do you have trouble with day-to-day activities such as bathing, preparing meals, shopping, managing finances, etc.?: No Are you currently unemployed and looking for a job?: No Are you interested in more education?: No Please select the resources that you would like help with: None Currently or been in a relationship where the following occur: No concerns reported THRIVE Score: 0 YESSENIA-7 AMB Questionnaire YESSENIA-7 Date YESSENIA - 7 assessed: 11/27/24 Feeling nervous, anxious, or on edge: 1 = Several days Not being able to stop or control worryin = Not at all Worrying too much about different things: 0 = Not at all Trouble relaxin = Not at all Being so restless that it is hard to sit still: 0 = Not at all Becoming easily annoyed or irritable: 1 = Several days Feeling afraid as if something awful might happen: 1 = Several days Total YESSENIA-7 score (0-4 normal; 5-9 mild; 10-14 moderate; 15-21 severe): 3 Source: Developed by Drs. Huang Wing, Milly Bernard, Sridhar Hoffman and colleagues, with an educational bryanna from [employer]. YESSENIA-7 Assessment Billing YESSENIA-7 Assessment Tool: YESSENIA-7 Assessment 44537 Physical exam (Primary Care) Vital Signs: Last Vital Signs Temp 98.7 F 06/03/25 10:50 Pulse 70 06/03/25 10:50 Resp 16 06/03/25 10:50 BP 136/90 H 06/03/25 10:50 Pulse Ox 95 06/03/25 10:50 Oxygen Delivery Method Room Air 06/03/25 10:50 BMI result Body Mass Index 36.3 Tobacco/Smoking Status: Tobacco use Status Tobacco use date assessed 06/03/25 06/03/25 10:57 Patient Tobacco Use Status Former Tobacco user 06/03/25 10:57 Tobacco use type Cigarette 06/03/25 10:57 e-Cigarette/Vaping Use Never Used 06/03/25 10:57 PHQ-9: PHQ-9 Score PHQ-9: Total score 2 06/03/25 11:20 Depression Screening Interpretation: Negative Thrive Assessment: Date of Thrive Assessment Date Thrive assessed 11/27/24 06/03/25 10:57 Currently or been in a relationship where the following occur: No concerns reported Coding Level of Care Code Est Pt Level 3 (28727) Diagnoses Essential hypertension I10 B12 deficiency E53.8 Additional Codes YESSENIA-7 Assessment Billing - YESSENIA-7 Assessment Tool: YESSENIA-7 Assessment 11338 ([id number]) PHQ-9 - 59303 - PHQ-9 Billing: Yes ([id number]) Assessment & Plan Assessment & Plan (1) Essential hypertension: Code(s): I10 - Essential (primary) hypertension Category: Medical (2) B12 deficiency: Code(s): E53.8 - Deficiency of other specified B group vitamins Category: Medical Plan . Orders: Orders Comprehensive [place]. Panel Fast Today I48.0 - Paroxysmal atrial fibrillation Vitamin B12 and Folate Today E53.8 - Deficiency of other specified B group vitamins Complete Blood Count Auto Diff Today I48.0 - Paroxysmal atrial fibrillation TSH reflex Free T4 Today I48.0 - Paroxysmal atrial fibrillation UA CC w/rflx Micro + Cult Today I48.0 - Paroxysmal atrial fibrillation Lipid Panel Today I48.0 - Paroxysmal atrial fibrillation Medications: Refilled pyridoxine (vitamin B6) May take 100-200mg po daily at bedtime. 100 mg PO DAILY 60 tabs 3RF cramps MDD 2 tablets G47.9 - Sleep disorder, unspecified, R53.83 - Other fatigue betamethasone dipropionate 0.05% 1 appl topical DAILY PRN 45 grams 1RF skin irritation
[2025-06-03 10:50] VITALS: BP 136/90; PULSE 70; RESP 16; TEMP 37.1; O2SAT 95; BMI 36.3
[2025-06-03 11:33] VITALS: BP 130/84
--- OUTSIDE RECORDS SUMMARY | 2025-06-03 12:06 | XMS_ITS | Patient Health Record ---
Author Organization [facility] Address [address] [place] [address] Care Team Providers Care Vp Integrity Name Role Phone Kristian Goldman Primary Care Provider Unav ailable [place], Mayra Unavailable [phone] Allergies No Known Allergies Reason For Referral No Information Medications Medication SIG (Take, Route, Frequency, Duration) Notes Start Date End Date Status Lamisil 250 250 MG 1 Tab Oral Daily; Duration: 90 03/09/2015 Not-Taking Betamethasone Dipropionate Aug 0.05 % 1 application to affected area Externally Once a day; Duration: as needed 06/01/2015 Not-Taking Eliquis 5 MG as directed Orally Active Night Splint AFO - L1930 as directed Not-Taking amLODIPine Besylate 2.5 MG Oral; Duration: 90 Active Night Splint AFO - L1930 as directed 03/28/2016 Not-Taking Apixaban Not-Taking Dronedarone HCl Not- Taking Methotrexate 2.5 MG Oral; Duration: 56 Not-Taking Folic Acid Not-Takin g Night Splint AFO - L1930 as directed 01/20/2022 Active Tolterodine Tartrate ER 4 MG TAKE 1 CAPSULE BY MOUTH DAILY Diagnosis Unavailable Oral; Duration: 30 Active Tamsulosin HCl 0.4 MG TAKE 1 CAPSULE BY MOUTH DAILY Diagnosis Unavailable Oral; Duration: 90 Active PARoxetine HCl 20 MG 1 [...] Problem Status W/U Status Risk Notes Problem Ulcer of left heel and midfoot, limited to breakdown of skin (L97.421) Active confirmed Plan Of Treatment Pending Test Test Name Order Date *Liver Function Test (LFT) 02/26/2015 [id number] NAIL, 6 OR MORE 02/26/2015 [id number] NAIL, 6 OR MORE 06/01/2015 [id number] NAIL, 6 OR MORE 10/27/2022 [id number] NAIL, 6 OR MORE 08/24/2015 [id number] NAIL, 6 OR MORE 11/30/2015 [id number] NAIL, 6 OR MORE 05/30/2016 [id number] NAIL, 6 OR MORE 09/01/2016 [id number] NAIL, 6 OR MORE 02/02/2017 [id number] NAIL, 6 OR MORE 08/03/2017 [id number] NAIL, 6 OR MORE 02/01/2018 [id number] NAIL, 6 OR MORE 09/06/2018 [id number] NAIL, 6 OR MORE 01/20/2022 80360- Debride <25 sq cm 10/27/2022 25532- Debride <25 sq cm 06/01/2015 46107- Debride <25 sq cm 02/26/2015 Insurance Providers Payer Name Payer Address Payer Phone Subscriber Number Group Number Insured Name Patient Relationship to Insured Coverage Start Date Coverage End Date Medicare National Govt Sv[employer] [address] [facility] [place] [address] [id number] Tyree Ferrell Self - patient is the insured [facility] [address] [place] [address] [id number] Tyree Ferrell Self - patient is the insured Medical (General) History Medical History History ICD Code Diverticulitis Chicken pox Anxiety Measles High blood pressure Heart disease Surgical History Surgery Date(Month/Year) colonoscopy Hospitalization History Reason Date(Month/Year) [facility] for chest paim. pt was kept over nig ht for observation 06/2016
== END 2025-06-03 12:31 | disposition home or self-care (01) ==
LOC: HO.HMCC 10:45
PROVIDERS: PCP Nurse Practitioner Family; Visit Provider Nurse Practitioner Family
DX: I10 Essential (primary) hypertension (principal); E53.8 Deficiency of other specified B group vitamins

== ENCOUNTER → 2025-06-03 10:44 | Outpatient (BNVA) | payer MEDICARE, BC, SELFPAY | PROVIDERS: PCP Nurse Practitioner Family; Visit Provider Nurse Practitioner Family | DX: I10 Essential (primary) hypertension (principal); E53.8 Deficiency of other specified B group vitamins | CPT/HCPCS: 96127; 99212 ==

== ENCOUNTER 2025-06-09 10:26 | Outpatient (AMB) | payer MEDICARE, BC, SELFPAY ==
--- OUTSIDE RECORDS SUMMARY | 2024-10-21 09:15 | XMS_ITS ---
Author Organization [facility] Address [address] [place] [address] [address] Care Team Providers Care Mixer And Scaler Name Role Phone REBEKAH LYNN Primary Care Provider Harinder Lerma Jr [phone] REASON FOR VISIT COLON SCREENING Encounters Encounter Location Date Provider Diagnosis [facility] [address] [facility] [place] [address] 10/21/2024 Harinder Ta Jr Plan Of Treatment No Information Progress Notes * ANSLEY GARCIADOB: 7 (69 yo M)Acc No.[id number]:10/21/2024 Progress Notes Patient: ANSLEY CORDOBA Provider: Leslie Ta MD :1955 A ge:69 Y S ex:Male Date:10/21/2024 Address: [id number] Pcp:REBEKAH LYNN Subjective: * Chief Complaints: * 1 . COLON SCREENING. * Medical History: Objective: * Vitals: Assessment: Plan: * Treatment: * * The named appointment provid er may or may not be the originator of this progress note, and it is not deemed complete until electronically signed by the appointment provider. Sign off status: Pending * Provider: Leslie Ta MD Date: 1 12/22/2023 Generated for Staciei cecilio/Sudhir/eTransmitting on: 0 06/09/2025 11:27 AM EDT
--- NOTE | 2025-06-09 10:29 | A.OFFVIS_ITS ---
Vital Signs 06/09/25 10:30 Height 6 ft 1 in Weight 271 lb 2.697 oz BMI 35.8 BP 138/68 Blood Pressure Location Lt brachial Position Sitting Pulse 68 Pulse Source Monitor Intake Visit Reasons: 6m follow up Allergies No Known Allergies (No Known Allergies*) Allergy (Verified 06/03/25 11:28) Medication List - Last Reconciled 06/09/25 by Lowell Best MD betamethasone dipropionate 0.05% 1 appl topical DAILY PRN Eliquis (apixaban) 5 mg PO BID NS mecobalamin (vitamin B12) (PureVita Vitamin B12) 1,500 mcg PO DAILY 3 months MDD 1500mcg metoprolol succinate ER 25 mg PO DAILY mirabegron ER (Myrbetriq) 25 mg PO DAILY 30 days paroxetine HCl 20 mg PO DAILY pyridoxine (vitamin B6) 100 mg PO DAILY MDD 2 tablets HPI Comments Details: Tyree returns for follow-up regarding paroxysmal atrial fibrillation. To recall, in 2015, he was admitted with atrial fibrillation and rapid rate and underwent ANUP/cardioversion. He was doing well on Multaq till more recently when he went back into atrial fibrillation. Then had another cardioversion. Subsequently, put on amiodarone. Then referred to EP and he underwent ablation in 2023. Since last seen, he states he feels good. No new complaints. No palpitations. [facility] Medical History Depression Anxiety History of cardioversion Morbid obesity Weak urinary stream Incomplete emptying of bladder Essential hypertension EVON on CPAP Paroxysmal atrial fibrillation Surgical History History of cardiac ablation for atrial fibrillation Hx of colonoscopy History of tonsillectomy Family History Father Heart attack Prostate cancer Mother Heart disease Son Substance use disorder Daughter Substance use disorder Sister Mental health disorder Social History Household Members: Family Housing: House Are you a primary home health care coordinator to a significant other at home: No Do you presently have visiting nurse or other home services: No 75 years or older and lives alone: No Alcohol intake: never Patient Tobacco Use Status: Former Tobacco user Tobacco use type: Cigarette Years Smoked: 10 +/- e-Cigarette/Vaping Use: Never Used Second Hand Smoke Exposure: No Advance Directives Date on File: 01/22/16 service: Yes Current occupational status: retired Cognitive needs: No Hearing needs: No Vision needs: No Review of Systems Const Denies weakness ENT Denies dizziness Card Denies chest pain, Denies chest pain with activity, Denies syncope, Denies rapid heart rate, Denies pedal edema, Denies edema, Denies leg edema, Denies lightheadedness, Denies palpitations, Denies dyspnea, Denies dyspnea on exertion and Denies orthopnea Resp Denies cough, Denies dyspnea and Denies dyspnea on exertion GI Denies hematochezia and Denies change in stool character Musc Denies abnormal gait, Denies muscle cramps, Denies muscle weakness, Denies numbness, Denies radiating pain into limb and Denies tingling Neuro Denies abnormal gait, Denies dizziness, Denies syncope, Denies numbness, Denies tingling and Denies weakness Endo Denies palpitations Physical Exam Vital Signs: Last Vital Signs Pulse 06/09/25 10:30 BP 138/68 06/09/25 10:30 BMI result Body Mass Index 35.8 Const General: comfortable and no acute distress Orientation/consciousness: patient oriented x3 HEENT Other: Unremarkable Head: Yes normal to inspection Neck Neck: Yes normal visual inspection Chest Chest palpation & inspection: normal inspection of the chest Resp Auscultation: clear to auscultation bilaterally Cardio Palpation: normal PMI Heart sounds: S1 normal heart sound present, S2 normal heart sound present, no gallops, no murmurs and no rubs GI Palpation (GI): Soft to palpation Back/Spine/Pelvis Other: unremarkable Skin General skin exam: no rashes or lesions noted Neuro General: patient oriented x3 Extrem General: Yes normal to inspection Psych Mental Status: mental status grossly normal Office Procedures EKG Details: EKG with underlying sinus rhythm at 68/Min; right bundle-branch block pattern. [id number], Complete Assessment & Plan Assessment & Plan (1) Paroxysmal atrial fibrillation: Code(s): I48.0 - Paroxysmal atrial fibrillation Category: Medical Plan: Status post atrial fibrillation ablation. Can keep on a small dose of beta- dayo. Continue anticoagulation. No recurrent atrial fibrillation in the last Holter. Last echocardiogram with LVEF of 60-65% with mild left atrial dilatation. Last stress test -2016 -showed likely normal perfusion with diaphragmatic attenuation of the inferior wall on gated LVEF of 72%. (2) Essential hypertension: Code(s): I10 - Essential (primary) hypertension Category: Medical Plan: Stable. Has been on Amlodipine in the past but not in his list anymore. (3) EVON on CPAP: Code(s): G47.33 - Obstructive sleep apnea (adult) (pediatric); Z99.89 - Dependence on other enabling machines and devices Category: Medical Plan: CPAP. (4) Morbid obesity: Code(s): E66.01 - Morbid (severe) obesity due to excess calories Category: Medical Plan: He states he is living some weight and hopefully can continue to do so. Plan Discussion Notes During the visit, we discussed the patient's progress post-ablation and the importance of monitoring atrial fibrillation symptoms. We also talked about the need for a follow-up sleep study due to weight changes and its potential impact on obstructive sleep apnea. Patient was informed and verbally consented to the use of an ambient scribe for clinic note documentation during this visit. Patient Instructions: - Monitor for any atrial fibrillation symptoms and contact the clinic if they occur. - Continue using the CPAP machine as prescribed. - Attend the scheduled sleep study as planned. Coding Level of Care Code Est Pt Level 4 (49170) Complex EM visit Add On G2211 Diagnoses Paroxysmal atrial fibrillation I48.0 Essential hypertension I10 EVON on CPAP G47.33; Z99.89 Morbid obesity E66.01 CPT Codes EKG - CPT: 44514-[id number], Complete ([id number])
[2025-06-09 10:30] VITALS: BP 138/68; PULSE 68; BMI 35.8
--- OUTSIDE RECORDS SUMMARY | 2025-06-09 11:27 | XMS_ITS | Patient Health Record ---
Author Organization [facility] Address [address] [place] [address] Care Team Providers Care Settlement Clerk Name Role Phone Kristian Goldman Primary Care Provider Unav ailable [place], Mayra Unavailable [phone] Allergies No Known Allergies Reason For Referral [...] Order Date *Liver Function Test (LFT) 02/26/2015 [id number] NAIL, 6 OR MORE 02/26/2015 [id number] NAIL, 6 OR MORE 06/01/2015 [id number] NAIL, 6 OR MORE 10/27/2022 [id number] NAIL, 6 OR MORE 08/24/2015 [id number] NAIL, 6 OR MORE 11/30/2015 [id number] NAIL, 6 OR MORE 05/30/2016 [id number] NAIL, 6 OR MORE 09/01/2016 [id number] NAIL, 6 OR MORE 02/02/2017 [id number] NAIL, 6 OR MORE 08/03/2017 [id number] NAIL, 6 OR MORE 02/01/2018 [id number] NAIL, 6 OR MORE 09/06/2018 [id number] NAIL, 6 OR MORE 01/20/2022 04465- Debride <25 sq cm 10/27/2022 40807- Debride <25 sq cm 06/01/2015 85434- Debride <25 sq cm 02/26/2015 Insurance Providers Payer Name Payer Address Payer Phone Subscriber Number Group Number Insured Name Patient Relationship to Insured Coverage Start Date Coverage End Date Medicare National Govt Sv[employer] [address] [facility] [address] [id number] Tyree Ferrell Self - patient is the insured [facility] [address] [place] [address] [id number] Tyree Ferrell Self - patient is the insured Medical (General) History Medical History History ICD Code Diverticulitis Chicken pox Anxiety Measles High blood pressure Heart disease Surgical History Surgery Date(Month/Year) colonoscopy Hospitalization History Reason Date(Month/Year) [facility] for chest paim. pt was kept over nig ht for observation 06/2016
== END 2025-06-09 10:44 | disposition home or self-care (01) ==
LOC: HO.HCS 10:27
PROVIDERS: PCP Nurse Practitioner Family; Visit Provider Internal Medicine
DX: I48.0 Paroxysmal atrial fibrillation (principal); I10 Essential (primary) hypertension; G47.33 Obstructive sleep apnea (adult) (pediatric); Z99.89 Dependence on other enabling machines and devices; E66.01 Morbid (severe) obesity due to excess calories
CPT/HCPCS: 93010; 99214; G2211

== ENCOUNTER → 2025-06-09 10:26 | Outpatient (BNVA) | payer MEDICARE, BC, SELFPAY | PROVIDERS: PCP Nurse Practitioner Family; Visit Provider Internal Medicine | DX: I48.0 Paroxysmal atrial fibrillation (principal); I10 Essential (primary) hypertension; G47.33 Obstructive sleep apnea (adult) (pediatric); Z99.89 Dependence on other enabling machines and devices; Z79.01 Long term (current) use of anticoagulants; E66.01 Morbid (severe) obesity due to excess calories; Z68.25 Body mass index [BMI] 25.0-25.9, adult | CPT/HCPCS: 93005; 99212 ==

== ENCOUNTER 2025-08-13 15:22 | Outpatient (AMB) | payer MEDICARE, BC, SELFPAY ==
--- OUTSIDE RECORDS SUMMARY | 2024-10-21 09:15 | XMS_ITS ---
Author Organization [facility] Address [address] [place], [place] [address], [place] [address] Care Team Providers Care Inventory Control Associate Name Role Phone REBEKAH LYNN Primary Care Provider Harinder Lerma Jr REASON FOR VISIT COLON SCREENING Encounters Encounter Location Date Provider Diagnosis [facility] [address] [place], [place] [address] [address] 10/21/2024 Harinder Ta Jr Plan Of Treatment No Information Progress Notes * ANSLEY GARCIADOB: 7 (69 yo M)Acc No.[id number]:10/21/2024 Progress Notes Patient: ANSLEY CORDOBA Provider: Leslie Ta MD :1955 A ge:69 Y S ex:Male Date:10/21/2024 Address: [id number] Pcp:REBEKAH LYNN Subjective: * Chief Complaints: * [...] 12/22/2023 Generated for Staciei cecilio/Sudhir/eTransmitting on: 0 08/13/2025 05:47 PM EDT
--- OUTSIDE RECORDS SUMMARY | 2025-02-05 10:00 | XMS_ITS ---
Author Organization [facility] Address [address] [place] [phone] Care Team Providers Care Director Business Travel Name Role Phone REBEKAH LYNN Primary Care Provider Harinder Lerma Jr REASON FOR VISIT screening Encounters Encounter Location Date Provider Diagnosis [facility] [place] [address] [place] [phone] 02/05/2025 Harinder Ta Jr Colon cancer screening Z12.11 Assessments Encounter Date Diagnosis (ICD Code) Assessment Notes Treatment Notes Treatment Clinical Notes Section Notes 02/05/2025 Colon cancer screening (ICD-10 - Z12.11) Plan Of Treatment No Information Progress Notes * TIFFANYANSLEY PRETTYDOB: 7 (69 yo M)Acc No.[id number]:02/05/2025 COLON WITH MAC Patient: ANSLEY CORDOBA Provider: Leslie Ta MD :1955 A ge:69 Y S ex:Male Date:02/05/2025 Address:[id number] Pcp:REBEKAH LYNN Subjective: * Chief Complaints: * 1 . Screening. * Medical History: Objective: * Vitals: Assessment: * Assessment: 1. C olon cancer screening - Z12.11 (Primary) Plan: * Treatment: * Procedure Codes: 4 5378 DIAGNOSTIC COLONOSCOPY * * The named appointment provid er may or may not be the originator of this progress note, and it is not deemed complete until electronically signed by the appointment provider. Sign off status: Pending * Provider: Leslie Ta MD Date: 0 02/05/2025 Generated for Elyssa hernandes/Sudhir/Vishnu on: 0 08/13/2025 05:47 PM EDT
--- NOTE | 2025-08-13 15:22 | MHC.OFFVIS ---
Intake Visit Reasons: Bladder Botox follow up Intake Note: Patient is present for follow up Urology Medication:VITAMIN B6,MIRABEGRON Antibiotic Allergy:NONE Blood Thinner:APIXABAN PVR 29 mls Community Development Officer Required: No Accompanied by: Self / Same As Patient Allergies No Known Allergies (No Known Allergies*) Allergy (Verified 08/13/25 15:22) HPI Comments Details: Tyree GARCIA is a very pleasant male. He is a patient of Dr Woody. He is seen for the following urologic conditions. - lower urinary tract symptoms - urinary urgency Botox 05/14 Had some improvement in daytime urgency and frequency Still with nighttime urge incontinence Using multiple pads per day Open bladder neck on prior cystoscopy - bladder instability Has previously failed oxybutynin 10 mg, terazosin, tolterodine, festoridine, Myrbetriq Nocturia x3 Persistent urge frequency but does note that he drinks too much coffee Continues with EVON mask and has been thirsty at night Discussed trial InterStim He would like to move ahead Failed multiple OAB medications including anticholinergics and beta agonist Partial response to Botox Requires use of incontinence products for urge incontinence Lower Urinary Tract Symptoms: Current visit is for further evaluation of, lower urinary tract symptoms, predominate obstructive symptoms. Current treatment includes medication, alpha dayo - tamsulosin 0.4 mg with tolterodine Prostate Symptom Score 10/19 , Moderate (9-19), Bother 3. Symptoms include 10/19 , incomplete emptying, weak stream, nocturia (>2), and are progressing. PSA 09/06 0.2, 10/11 0.3, 01/13 0.2 - family history of prostate cancer with father Prostate volume 30-50gm. [facility] Medical History Depression Anxiety History of cardioversion Morbid obesity Weak urinary stream Incomplete emptying of bladder Essential hypertension EVON on CPAP Paroxysmal atrial fibrillation Surgical History History of cardiac ablation for atrial fibrillation Hx of colonoscopy History of tonsillectomy Family History Father Heart attack Prostate cancer Mother Heart disease Son Substance use disorder Daughter Substance use disorder Sister Mental health disorder Social History Household Members: Family Housing: House Are you a primary pediatric acute care unit nurse to a significant other at home: No Do you presently have visiting nurse or other home services: No 75 years or older and lives alone: No Alcohol intake: never Patient Tobacco Use Status: Former Tobacco user Tobacco use type: Cigarette Years Smoked: 10 +/- e-Cigarette/Vaping Use: Never Used Second Hand Smoke Exposure: No Advance Directives Date on File: 01/22/16 service: Yes Current occupational status: retired Cognitive needs: No Hearing needs: No Vision needs: No Review of Systems Const Denies chills and Denies fever(s) Card Reports no additional complaints and Denies syncope Resp Denies cough GI Denies abdominal pain and Denies heartburn Reports as per HPI and Denies change in libido Neuro Denies syncope Psych Denies change in libido Endo Denies change in libido Physical Exam Const General: cooperative, healthy appearing, comfortable and no acute distress Orientation/consciousness: patient oriented x3 HEENT Face and sinus: Yes normal facial exam Mouth: moist mucous membranes Neck Neck: Yes normal visual inspection, Yes full ROM and Yes trachea midline Chest Chest palpation & inspection: normal inspection of the chest Resp Effort & Inspection: normal respiratory effort, able to speak in complete sentences and no respiratory distress GI Inspection: Yes normal to inspection Back/Spine/Pelvis Cervical Spine: normal cervical lordosis Thoracic/Lumbar Spine: thoracic and lumbar spine normal to inspection Skin General skin exam: no rashes or lesions noted Neuro General: patient oriented x3, gait normal, tone normal and moves all extremities Extrem General: Yes normal to inspection and Yes capillary refill normal Office Procedures Post Void Residual Post Residual Void Post Void Residual (PVR): 29 [id number] Void Residual by ultrasound Results AMB Urinalysis, Automated UA Leukoctes 0 Aadm/uL Last Edit by Mary Anne Hamilton MA on 08/13/25 16:22 UA Nitrite Negative Last Edit by Mary Anne Hamilton MA on 08/13/25 16:22 UA Urobilinogen 17 mg/dL Last Edit by Mary Anne Hamilton MA on 08/13/25 16:22 UA Protein 0 mg/dL Last Edit by Mary Anne Hamilton MA on 08/13/25 16:22 UA pH 6.0 Last Edit by Mary Anne Hamilton MA on 08/13/25 16:22 UA Blood 0 Juan/uL Last Edit by Mary Anne Hamilton MA on 08/13/25 16:22 UA Specific [place] 1.015 Last Edit by Mary Anne Hamilton MA on 08/13/25 16:22 UA Ketone Negative Last Edit by Mary Anne Hamilton MA on 08/13/25 16:22 UA Bilirubin 0 mg/dL Last Edit by Mary Anne Hamilton MA on 08/13/25 16:22 UA Glucose 0 mg/dL Last Edit by Mary Anne Hamilton MA on 08/13/25 16:22 Assessment & Plan Assessment & Plan (1) Urinary urgency: Code(s): R39.15 - Urgency of urination Category: Medical (2) Urinary incontinence: Code(s): R32 - Unspecified urinary incontinence Category: Medical (3) Nocturia more than twice per night: Code(s): R35.1 - Nocturia Category: Medical Plan Risks, benefits and alternatives to therapy were discussed. These include but are not limited to infection, bleeding, damage to local organs and tissues, need for further interventions. Anesthetic risks regarding cardiac arrhythmia, blood clots, and potential mortality were discussed. The patient understands the typical recovery time and the outpatient nature of the procedure. After consideration of these risks the patient gives full informed consent and they wish to move ahead with the procedure. - interstim trial Orders: Orders AMB Urinalysis Automated Today Z13.9 - Encounter for screening, unspecified Patient Instructions: This note is constructed using voice recognition software. While every effort has been made to ensure accuracy formal waiter/waitress errors may have been included. Imaging studies, laboratory and physical exam results were discussed and reviewed in detail. No major barriers to patient understanding were identified. An opportunity to ask questions regarding the treatment plan was provided. All questions were answered. The patient expressed understanding and agreement with the above treatment plan. The patient is aware they should contact our office by phone for worsening of their current condition or the appearance of new urologic symptoms. Compliance is encouraged with any medications and followup testing that is ordered. It is a privilege to participate in the urologic care of your patient. If you have any questions or concerns regarding treatment for the above conditions, or other urologic issues, please do not hesitate to contact me. The office telephone contact is [phone]. Sincerely, Dr Farzad Ivan MD, [facility] [place] - Urology Compassionate Specialist Care for the Genitourinary System Coding Level of Care Code Est Pt Level 4 (28471) Diagnoses Urinary urgency R39.15 Urinary incontinence R32 Nocturia more than twice per night R35.1 CPT Codes Post Residual Void - PVR CPT Code: 32540-Vyra Void Residual by ultrasound ([id number])
--- OUTSIDE RECORDS SUMMARY | 2025-08-13 17:47 | XMS_ITS | Patient Health Record ---
Author Organization [facility] Address [address] [place] [address] Care Team Providers Care Reconciliation Manager Name Role Phone Kristian Goldman Primary Care Provider Unav ailable [place], Mayra Unavailable [phone] Allergies No Known Allergies Reason For Referral [...] Order Date *Liver Function Test (LFT) 02/26/2015 [id number] NAIL, 6 OR MORE 02/26/2015 [id number] NAIL, 6 OR MORE 06/01/2015 [id number] NAIL, 6 OR MORE 10/27/2022 [id number] NAIL, 6 OR MORE 08/24/2015 [id number] NAIL, 6 OR MORE 11/30/2015 [id number] NAIL, 6 OR MORE 05/30/2016 [id number] NAIL, 6 OR MORE 09/01/2016 [id number] NAIL, 6 OR MORE 02/02/2017 [id number] NAIL, 6 OR MORE 08/03/2017 [id number] NAIL, 6 OR MORE 02/01/2018 [id number] NAIL, 6 OR MORE 09/06/2018 [id number] NAIL, 6 OR MORE 01/20/2022 54169- Debride <25 sq cm 10/27/2022 86747- Debride <25 sq cm 06/01/2015 61737- Debride <25 sq cm 02/26/2015 Insurance Providers Payer Name Payer Address Payer Phone Subscriber Number Group Number Insured Name Patient Relationship to Insured Coverage Start Date Coverage End Date Medicare [employer] [address] [place] [address] [id number] Tyree Ferrell Self - patient is the insured [facility] [address] [place] [address] [id number] Tyree Ferrell Self - patient is the insured Medical (General) History Medical History History ICD Code Diverticulitis Chicken pox Anxiety Measles High blood pressure Heart disease Surgical History Surgery Date(Month/Year) colonoscopy Hospitalization History Reason Date(Month/Year) [facility] for chest paim. pt was kept over nig ht for observation 06/2016
--- OUTSIDE RECORDS SUMMARY | 2025-08-13 17:48 | XMS_ITS | Patient Health Record ---
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 (Z79.01) Active confirmed Problem 768410922 Diverticulosis (K57.90) Active confirmed Problem 30091434 Constipation, unspecified constipation type (K59.00) Active confirmed Vital Signs Temperature 97.7 degrees Fahrenheit 01/13/2025 Blood pressure diastolic 01 mm Hg 01/13/2025 Height 72 in 01/13/2025 Blood pressure systolic 001 mm Hg 01/13/2025 Weight 283.4 lbs 01/13/2025 BMI 38.43 kg/m2 01/13/2025 Encounters Encounter Location Date Provider Diagnosis [facility] [address] [place], [place] [phone] 02/05/2025 Harinder Ta Jr Colon cancer screening Z12.11 [facility] [address] [place] [phone] 01/13/2025 Harinder Ta Jr Colon cancer screening Z12.11 ; Diverticulosis K57.90 ; Constipation, unspecified constipation type K59.00 and snf (current) use of anticoagulants Z79.01 [facility] [address] [place] [phone] 10/21/2024 Harinder Ta Jr [facility] [address] [place] [phone] 02/03/2025 Harinder Ta Jr Assessments Encounter Date [...] Eliquis 3 days before the procedure. 01/13/2025 snf (current) use of anticoagulants (ICD-10 - Z79.01) [...] [place] [address] [place] [address] [phone] [id number] ANSLEY GARCIA Self - patient is the insured [facility] [address] [place], [place] [id number] ANSLEY GARCIA Self - patient is the insured Medical (General) History Medical History History ICD Code colonoscopy 04-15-2009 diverticulitis anxiety Atrial fibrillation, History of ablation EVON/CPAP
== END 2025-08-13 16:39 | disposition home or self-care (01) ==
LOC: HO.HUSH 15:22
PROVIDERS: PCP Nurse Practitioner Family; Visit Provider Urology
DX: R39.15 Urgency of urination (principal); R32 Unspecified urinary incontinence; R35.1 Nocturia; Z13.9 Encounter for screening, unspecified
CPT/HCPCS: 99214

== ENCOUNTER → 2025-08-13 15:22 | Outpatient (BNVA) | payer MEDICARE, BC, SELFPAY | PROVIDERS: PCP Nurse Practitioner Family; Visit Provider Urology | DX: R39.15 Urgency of urination (principal); R32 Unspecified urinary incontinence; R35.1 Nocturia; Z13.9 Encounter for screening, unspecified | CPT/HCPCS: 51798; 81003; 99212 ==